=== PATIENT | female | born 1935 | race Caucasian/White ===

== ENCOUNTER 2018-08-16 14:05 | Inpatient (IN) | payer OTHER, MEDICARE ==
[~2018-08-16] VITALS: Ht 152.4 cm; Wt 75.6 kg
[2018-08-16] MEDS ORDERED: HYDR-3812 PO (15:32)
[2018-08-16] MEDS ORDERED: RIVA10TA PO (15:32)
[2018-08-16] MEDS ORDERED: ACET325T38 PO (15:32)
[2018-08-16] MEDS ORDERED: ALLO100T PO (15:32)
[2018-08-16] MEDS ORDERED: AMLO5TAB9 PO (15:32)
[2018-08-16] MEDS ORDERED: ASPI-983 PO (15:32)
[2018-08-16] MEDS ORDERED: METO50TA15 PO (15:32)
[2018-08-16] MEDS ORDERED: POLY17PO6 PO (15:32)
[2018-08-16] MEDS ORDERED: INSU100V SQ (15:32)
[2018-08-16] MEDS ORDERED: FERR325T24 PO (15:32)
[2018-08-16] MEDS ORDERED: SIME80TA16 PO (15:32)
[2018-08-16] MEDS ORDERED: GLIM4TAB PO (15:32)
[2018-08-16] MEDS ORDERED: INSU100I29 SC (15:32)
[2018-08-16] MEDS ORDERED: METF-397 PO (15:32)
[2018-08-16] MEDS ORDERED: LISI-552 PO (15:39)
--- NOTE | 2018-08-16 15:50 | NUR ---
UPDATED THE MED REC TO THE LIST OF MEDICATIONS ORDERED UPON DISCHARGE FROM [facility]. NOTE THE FOLLOWING CHANGES THAT WERE MADE: START TAKING: TYLENOL 325MG 2 TABS Q6H PRN FERROUS SULFATE 325MG BID HYDROCODONE 5-325 1 Q4H PRN HUMALOG ACHS CORRECTION SLIDING SCALE METOPROLOL TARTRATE 50MG Q8H (HOWEVER LAST GIVEN STATES 25MG THIS MORNING) MIRALAX 17GM DAILY PRN CONSTIPATION XARELTO 10MG EVERY 24 HOURS SIMETHICONE 80MG Q6H PRN GAS CHANGE HOW YOU TAKE: AMLODIPINE 5MG DAILY (WAS TAKING 2.5MG DAILY) GLIMEPIRIDE 2MG 2 TABS DAILY (WAS TAKING 4MG BID) LEVEMIR 18 UNITS HS (WAS FILLED AT [facility] 22 UNITS DAILY WITH EVENING MEAL) STOP TAKING: ATENOLOL 25MG BID JANUVIA 100MG (HAD FILLED 50MG DAILY ACCORDING TO EXT MED HX) ALSO NOTE THEY ORDERED TO CONTINUE LISINOPRIL 20MG BID HOWEVER ACCORDING TO THE EXT MED HX SHE LAST FILLED LISINOPRIL HCTZ 20-12.5MG BID. Addendum: 08/17/18 at 1318 by CATRINA SIN semiconductor manufacturing technician UPDATED MED REC BACK TO THE HOME MEDICATION LIST PRIOR TO DISCHARGE FROM [facility] USING THE EXT MED HX AND THE CHANGES MADE AT DISCHARGE FROM [facility].
[2018-08-16] MEDS ORDERED: meTOprolol TARTRATE 50 MG (LOPRESSOR) TAB PO SCH (16:15)
[2018-08-16] MEDS ORDERED: NON-FORMULARY MEDICATION 1 EA EA (Polyethylene Glycol 3350 (Miralax) 17 GM) PO PRN (16:15)
[2018-08-16] MEDS ORDERED: NON-FORMULARY MEDICATION 1 EA EA (Hydrocodone/Acetaminophen (Hydrocodone-Acetamin 5-325 mg PO PRN (16:15)
[2018-08-16] MEDS ORDERED: SIMETHICONE 80 MG PO PRN (16:15)
[2018-08-16] MEDS ORDERED: ACETAMINOPHEN 325 MG TABLET PO PRN (16:15)
--- NOTE | 2018-08-16 20:40 | NUR ---
Eduard Campo admitted to room 230-1, with an admitting diagnosis of ORIF of the Left hip, on 08/16/18 from [facility] in [place] via [facility], accompanied by [facility] van cdl driver. EDUARD CAMPO introduced to surroundings, call light, bed controls, phone, TV, temperature control, lights, meal times, smoking policy, visitor policy, side rail policy, bathrooms and showers. Patient Rights given to patient in the handbook. EDUARD CAMPO verbalizes understanding that [facility] is not responsible for the loss or damage to any personal effects or valuables that are kept in the patients posession during their hospitalization. The following Patient Care Plans were discussed with the patient: Discharge Planning, impaired mobility, and pain management. EDUARD CAMPO verbalizes understanding of Interdisciplinary Patient Education. Patient was informed about the Rapid Response Team and its purpose. Patient received Patient Rights Booklet, which includes Privacy Act Statement and Data Collection Information Summary.
[2018-08-16 20:49] VITALS: BP 166/72
[2018-08-16 20:51] VITALS: BP 166/72
[2018-08-16] MEDS ORDERED: NON-FORMULARY MEDICATION 1 EA EA (Metformin HCl 1,000 MG) PO SCH (21:00)
[2018-08-16] MEDS ORDERED: FERROUS SULF 325 MG (IRON) TAB PO SCH (21:00)
[2018-08-16] MEDS ORDERED: NON-FORMULARY MEDICATION 1 EA EA (Insulin Detemir (Levemir Flextouch) 18 UNITS) SC SCH (21:00)
[2018-08-16] MEDS ORDERED: NON-FORMULARY MEDICATION 1 EA EA (Allopurinol 100 MG) PO SCH (21:00)
[2018-08-16] MEDS ORDERED: HYDROcodone/APAP 5 MG/325 MG (LORTAB) TAB ONE (21:02)
[2018-08-16] MEDS ORDERED: meTOprolol TARTRATE 50 MG (LOPRESSOR) TAB ONE (21:02)
[2018-08-16] MEDS ORDERED: metFORMIN 500 MG (GLUCOPHAGE) TAB ONE (21:02)
[2018-08-16] MEDS ORDERED: ALLOPURINOL 100 MG (ZYLOPRIM) TAB ONE (21:04)
[2018-08-16] MEDS: inSUlin ASPART (NovoLOG) 1 UNIT/0.01 ML (CHARGE PER UNIT) SC SCH (21:09)
[2018-08-16] MEDS: lisINopril 20 MG (PRINIVIL) TABLET PO SCH (21:10)
[2018-08-16] MEDS ORDERED: POLYETHYLENE GLYCOL 17 GM (MIRALAX) PACK PO PRN (21:45)
[2018-08-16] MEDS: meTOprolol TARTRATE 50 MG (LOPRESSOR) TAB PO SCH (22:03)
[2018-08-16] MEDS: HYDROcodone/APAP 5 MG/325 MG (LORTAB) TAB PO PRN (22:34)
[2018-08-17 04:57] LABS: BASOPHILS % (AUTO) 0 % (0-10); EOSINOPHILS # (AUTO) 0.1 10^3/uL (0.0-0.3); EOSINOPHILS % (AUTO) 2 % (0-10); HEMATOCRIT 23 % (35-52); HEMOGLOBIN 7.3 G/DL (11.5-16.0); LYMPHOCYTES # (AUTO) 1.2 X 10^3 (1.0-4.0); LYMPHOCYTES % (AUTO) 24 % (12-44); MEAN CORPUSCULAR HEMOGLOBIN 29 PG (25-34); MEAN CORPUSCULAR HGB CONC 31 G/DL (32-36); MEAN CORPUSCULAR VOLUME 92 FL (80-99); MEAN PLATELET VOLUME 8.9 FL (7.4-10.4); MONOCYTES # (AUTO) 0.6 X 10^3 (0.0-1.0); MONOCYTES % (AUTO) 12 % (0-12); NEUTROPHILS # (AUTO) 2.9 X 10^3 (1.8-7.8); NEUTROPHILS % (AUTO) 61 % (42-75); PLATELET COUNT 233 10^3/uL (130-400); RED CELL DISTRIBUTION WIDTH 18.6 % (10.0-14.5); WHITE BLOOD COUNT 4.8 10^3/uL (4.3-11.0)
[2018-08-17 05:21] LABS: ALANINE AMINOTRANSFERASE 28 U/L (0-55); ALBUMIN 2.6 GM/DL (3.2-4.5); ALKALINE PHOSPHATASE 77 U/L (40-136); BILIRUBIN,TOTAL 0.6 MG/DL (0.1-1.0); BUN/CREATININE RATIO 21; CALCIUM 8.6 MG/DL (8.5-10.1); CARBON DIOXIDE 23 MMOL/L (21-32); CHLORIDE 112 MMOL/L (98-107); CREATININE SERUM 0.82 MG/DL (0.60-1.30); GFR ESTIMATED > 60; GLUCOSE 76 MG/DL (70-105); POTASSIUM 4.1 MMOL/L (3.6-5.0); SODIUM 143 MMOL/L (135-145); TOTAL PROTEIN 4.9 GM/DL (6.4-8.2)
[2018-08-17 05:49] VITALS: BP 149/69
[2018-08-17] MEDS: inSUlin ASPART (NovoLOG) 1 UNIT/0.01 ML (CHARGE PER UNIT) SC SCH ×4 (06:22→20:27)
[2018-08-17] MEDS: HYDROcodone/APAP 5 MG/325 MG (LORTAB) TAB PO PRN ×4 (06:22→22:38)
[2018-08-17] MEDS: metFORMIN 500 MG (GLUCOPHAGE) TAB PO SCH ×2 (06:22→17:54)
[2018-08-17] MEDS: meTOprolol TARTRATE 50 MG (LOPRESSOR) TAB PO SCH ×3 (06:22→20:27)
[2018-08-17] MEDS: GLIMEPIRIDE 4 MG (AMARYL) TAB PO SCH (06:51)
--- NOTE | 2018-08-17 08:41 | PM&R H&P / Post Admit Assess ---
History of Present Illness HPI/Chief Complaint Chief Complaint: Left femur fracture HPI: This is an 83[address]WF of [address] 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 She did have blood loss, anemia, and was placed on oral iron at that time at [facility]. She had no significant decompensation at [facility], kidney function remained normal, and all home meds were restarted when she arrived at inpatient rehab. Bowel function has remained normal to loose since laxatives had been given post-operatively. She at this current time reports that her leg feels much better with pain medication and she is already participating in therapy although she only arrived last night at 9 PM after an eight hour wait for transportation. I did talk to her about her Hgb of 7.3, Venofer will be ordered and iron will be discontinued due to constipation and bloating complaints. Overall she was independent prior level of functioning and she will work towards returning back to independent living at time of discharge. Source: patient, RN/MD, old records Exam Limitations: no limitations Date Seen 08/17/18 Time Seen by a Provider: 08:45 Attending Physician Frances Santana Ronald MD Referring Physician Date of Admission Aug 16, 2018 at 20:40 Home Medications & Allergies Home Medications Reviewed patient Home Medication Reconciliation performed by pharmacy medication reconciliations senior pharmacy technician and/or nursing. Patients Allergies have been reviewed. 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) Alcohol Use: Denies Use Recreational Drug Use: No Smoking Status: Never a Smoker Physical Abuse Screen: No Sexual Abuse: No Recent Foreign Travel: No Contact w/other who traveled: No Recent Hopitalizations: No Recent Infectious Disease Expo: No Immunizations Up To Date Date of Pneumonia Vaccine: Apr 27, 2018 Seasonal Allergies Seasonal Allergies: No Past Medical History Surgeries: Orthopedic Currently Using CPAP: No Currently Using BIPAP: No Cardiac: High Cholesterol, Hypertension Sexually Transmitted Disease: No HIV/AIDS: No Female Reproductive Disorders: Denies Genitourinary: Bladder Infection Musculoskeletal: Arthritis, Gout Endocrine: Diabetes, Non-Insulin dep Are Your Blood Sugars Over 250: Yes (occasionally) HEENT: Cataract Loss of Vision: Denies Hearing Impairment: Hard of Hearing History of Blood Disorders: No Adverse Reaction to Blood Cloud: No Family History Hypertension 19 FATHER Hypertension Review of Systems Constitutional: see HPI, malaise, weakness EENTM: no symptoms reported Respiratory: no symptoms reported Cardiovascular: no symptoms reported Gastrointestinal: diarrhea Genitourinary: no symptoms reported Musculoskeletal: back pain, muscle pain, muscle stiffness, other (left hip pain ) Skin: no symptoms reported Psychiatric/Neurological: No Symptoms Reported All Other Systems Reviewed Negative Unless Noted: Yes Physical Exam Exam Vital Signs Vital Signs Date Time Temp Pulse Resp B/P (MAP) Pulse Ox O2 Delivery O2 Flow Rate FiO2 08/17/18 16:10 97.7 97 16 107/62 (77) 98 Room Air Capillary Refill : Less Than 3 Seconds General Appearance: No Apparent Distress, WD/WN, Chronically ill HEENT: PERRL/EOMI, Normal ENT Inspection, Pharynx Normal, Moist Mucous Membranes Neck: Full Range of Motion, Normal Inspection, Non Tender, Supple Respiratory: Chest Non Tender, Lungs Clear, Normal Breath Sounds, No Accessory Muscle Use, No Respiratory Distress Cardiovascular: Regular Rate, Rhythm, No Edema, No Gallop, No JVD, No Murmur Gastrointestinal: Normal Bowel Sounds, No Organomegaly, No Pulsatile Mass, Non Tender, Soft Back: Normal Inspection, No CVA Tenderness, No Vertebral Tenderness Extremity: Normal Capillary Refill, Normal Inspection, Normal Range of Motion, Non Tender, No Calf Tenderness, No Pedal Edema Neurologic/Psychiatric: Alert, Oriented x3, No Motor/Sensory Deficits (limited ROM left leg due to hip pain), Normal Mood/Affect, Abnormal Gait Skin: Normal Color, Warm/Dry Lymphatic: No Adenopathy Results Results/Procedures Labs Laboratory Tests 08/17/18 04:45 Patient resulted labs reviewed. Assessment/Plan Assessment and Plan Assess & Plan/Chief Complaint Assessment: Left hip fracture s/p uncomplicated repair DM HTN Acute blood loss anemia Severe iron deficiency placed on iron infusions Gout Loose stools Low albumin Plan: DM management with insulin Pain control Monitor bowels Fall prevention education Home meds Iron infusions (1) Femur fracture, left (2) Diabetes mellitus (3) Hypertension (4) Gout (5) Acute blood loss anemia (6) Iron deficiency (7) Loose stools (8) Serum albumin decreased Post Admission Physician Asses Date seen by provider: Aug 17, 2018 Time seen by provider: 08:45 The preadmission screen agrees with the post admission assessment that the patient is a good candidate for inpatient rehabilitation. The patient will have a comprehensive program of inpatient rehabilitation with a goal of maximizing level of functional independence prior to discharge home. The patient will have PT/OT ninety minutes per day, each discipline, five days a week for gait, strengthening, conditioning, balance, ADLs, any patient/ family/caregiver training as necessary. Speech therapy to do cognitive assessment and treat as indicated. Rehabilitation nursing to assist with bowel, bladder, skin, wound care, medication administration, pain management. Marine Fireman to assist with discharge planning, community reentry. SCD's for DVT prophylaxis. She appears to be well motivated to participate in three hours of therapy a day. She should be able to tolerate three hours of therapy a day from a medical standpoint. She should benefit from the three hours of therapy a day. She has a reasonable discharge plan, reasonable discharge rehabilitation goals and a supportive family. She has various comorbidities that need to be closely monitored with medications and treatments adjusted on a daily basis as needed. These include: see list Barriers to discharge for this patient who had been independent prior to this are for her to be modified independent to supervision for ADLs and mobility skills prior to discharge home so as to lessen the burden of the caregivers. Risks for this patient include: 1. Fall 2. Fracture 3. DVT 4. Pulmonary embolism 5. Wound infection 6. Skin breakdown 7. Contractures 8. Poorly controlled pain 9. Urinary retention 10. UTI 11. Respiratory infection 12. Aspiration Estimated Length of Stay: 10 days Prognosis: Rehab prognosis appears good for goal of discharge home modified independent to supervision for ADLs and mobility skills. FRANCES SANTANA DO Aug 17, 2018 08:41
[2018-08-17] MEDS ORDERED: NON-FORMULARY MEDICATION 1 EA EA (Glimepiride 4 MG) PO SCH (09:00)
[2018-08-17] MEDS ORDERED: NON-FORMULARY MEDICATION 1 EA EA (Amlodipine Besylate 5 MG) PO SCH (09:00)
[2018-08-17] MEDS ORDERED: RIVAROXABAN 10 MG PO SCH (09:00)
--- NOTE | 2018-08-17 09:07 | Physical Therapy Evaluation ---
PT Evaluation-General Medical Diagnosis Admission Date Aug 16, 2018 at 20:40 Medical Diagnosis: ORIF left hip Onset Date: Aug 09, 2018 Therapy Diagnosis Therapy Diagnosis: impaired mobility, strength, endurance Height/Weight Height (Feet): 5 Height (Inches): 0.00 Weight (Pounds): 161 Weight (Ounces): 0.0 Precautions Precautions/Isolations: Fall Prevention, Standard Precautions Weight Bear Status Right Lower Extremity: Right Full Weight Bearing Left Lower Extremity: Left Touch Toe Bearing Referral Physician: Frances Santana DO Reason for Referral: Evaluation/Treatment Medical History Pertinent Medical History: Arthritis Reviewed History: Yes Social History Home: Single Level Current Living Status: Alone Entry Into Home: Stairs Without Railing PT Steps Into Home: 2 Prior/Core FIM Prior Level of Function Therapy Code Descriptions/Definitions Functional [place] Measure: 0=Not Assessed/NA 4=Minimal Assistance 1=Total Assistance 5=Supervision or Setup 2=Maximal Assistance 6=Modified [place] 3=Moderate Assistance 7=Complete [place] Therapy Quality Codes: 6 Independent with activity with or without an assistive device 5 Patient requires set up or clean up by helper. Patient completes activity by themselves 4 Supervision or touching assist (CGA). [place] provide cues , steadying assist 3 The helper provides less than half the effort to complete the activity 2 The helper provides more than half the effort to complete the activity 1 Dependent. The helper does all the effort to complete an activity 7 Patient refused to complete or attempt activity 9 The patient did not perform the activity before the current illness or injury 88 Not attempted due to Medical conditions or safety concerns Functional Abilities and Goals: Independent: Patient completed the activities by him/herself, with or without an assistive device, with no assistance from a helper. Needed Some Help: Patient needed partial assistance from another person to complete activities. Dependent: A helper completed the activities for the patient. Unknown: Not Applicable: Bed Mobility: 7 Transfers (B,C,W/C) (FIM): 7 Gait: 7 Stairs: 7 Indoor Mobility (Ambulation): Independent Stairs: Independent PT Evaluation-Current Subjective Patient in recliner pre tx, agrees to PT, has 7/10 pain in left hip. Pt/Family Goals to be independent at home Objective Patient Orientation: Person, Place, Situation ROM/Strength ROM Lower Extremities RLE WNL, LLE not tested Strenght Lower Extremities RLE 4+/5 gross, LLE not tested Neuromuscular (Tone, Coordination, Reflexes) NT Sensory Hearing: Functional Sensation Right Lower Extremit: Intact Sensation Left Lower Extremity: Intact Transfers Therapy Code Descriptions/Definitions Functional [place] Measure: 0=Not Assessed/NA 4=Minimal Assistance 1=Total Assistance 5=Supervision or Setup 2=Maximal Assistance 6=Modified [place] 3=Moderate Assistance 7=Complete [place] Therapy Quality Codes: 6 Independent with activity with or without an assistive device 5 Patient requires set up or clean up by helper. Patient completes activity by themselves 4 Supervision or touching assist (CGA). [place] provide cues , steadying assist 3 The helper provides less than half the effort to complete the activity 2 The helper provides more than half the effort to complete the activity 1 Dependent. The helper does all the effort to complete an activity 7 Patient refused to complete or attempt activity 9 The patient did not perform the activity before the current illness or injury 88 Not attempted due to Medical conditions or safety concerns Transfers (B, C, W/C) (FIM): 3 Scootin Rollin Roll Left to Right (QC): 3 Supine to/from Sit: 3 Sit to/from Stand: 4 bed t/f WC(FIM only if WC use): 4 Sit to Lying (QC): 2 Lying to Sitting/Side of Bed(Q: 2 Sit to Stand (QC): 4 Chair/[place] Xfer(QC): 4 Car Transfer (QC): 3 Patient performs bed mobility with min assist, supine <-> sit with mod assist, sit <-> stand with CGA, transfers with CGA, car transfer with min assist. Patient needs cues for hand placement and positioning. Gait Does the Patient Walk?: Yes Mode of Locomotion: Walk Anticipated Mode of Locomotion: Walk Gait (FIM): 1 Walk 10 feet (QC): 4 Distance: 10' Gait Level of Assist: 4 Gait Persons Needed: 1 Gait Assistive Device: FWW Comments/Gait Description Patient can ambulate 10' with a rolling walker with CGA. Ambulation is antalgic , slow, little to no foot clearance on either side, she can barely support her weight to keep it off of left leg when stepping with the right. Stairs If not tested on admit;explain Patient is not able to bear enough weight through her arms to step up with her good leg onto the step. Balance Sitting Static: Normal Sitting Dynamic: Normal Standing Static: Fair Standing Dynamic: Fair Treatment LAQ left side for 5 min, AP x20 each side. Patient was also toileted for a BM. Assessment/Needs Patient has impaired mobility, strength, endurance post left hip ORIF. She has difficulty maintaining her TTWB on the left leg due to arm weakness. Rehab Potential: Fair PT Short Term Goals Short Term Goals Time Frame: Aug 24, 2018 Transfers (B,C,W/C) (FIM): 4 Gait (FIM): 1 Gait Distance Comment: 25' Gait Level of Assist: 4 Gait Assistive Device: FWW PT Usp Goals Usp Goals PT Human Services Instructor Goals Time Frame: September 07, 2018 Transfers (B,C,W/C) (FIM): 5 Sit to Lying (QC): 4 Lying-Sitting on Side/Bed(QC): 4 Sit to Stand (QC): 4 Rollin Roll Left to Right (QC): 4 Chair/Hgo-ab-Bakmk Xfer(QC): 4 Car Transfer (QC): 4 Gait (FIM): 2 Distance: 50' Walk 10 feet (QC): 4 Walk 10ft-Uneven Surface(QC): 4 Walk 50ft with 2 Turns (QC): 4 Gait Level of Assist: 5 Gait Assistive Device: FWW Stairs (FIM): 2 # of Steps: 4 1 Step (curb) (QC): 4 4 Steps (QC): 4 Stairs Level Of Assist: 4 PT Plan Problem List Problem List: Activity Tolerance, Functional Strength, Safety, Balance, Gait, Transfer, Bed Mobility, ROM Treatment/Plan Treatment Plan: Continue Plan of Care Treatment Plan: Bed Mobility, Education, Functional Activity [place], Functional Strength, Group Therapy, Gait, Safety, Therapeutic Exercise, Transfers Treatment Duration: September 07, 2018 Frequency: At least 5 of 7 days/Wk (IRF) Estimated Hrs Per Day: 1.5 hours per day Patient and/or Family Agrees t: Yes Safety Risks/Education Patient Education: Gait Training, Transfer Techniques, Correct Positioning, Safety Issues Teaching Recipient: Patient Teaching Methods: Demonstration, Discussion Response to Teaching: Reinforcement Needed Discharge Recommendations Plan Patient will perform bed mobility and transfer training, balance and endurance training, functional strengthening, stair training, gait training, and education , to improve functional mobility and independence at home. Therapy D/C Recommendations: Home w/ Family Support Time/GCodes Time In: 0800 Time Out: 0900 Total Billed Treatment Time: 60 Total Billed Treatment 1 visit EVM 30' GT 10' FA 20' BILLY GALLOWAY PT Aug 17, 2018 09:07
[2018-08-17] MEDS: RIVAROXABAN 10 MG TABLET (XARELTO) PO SCH (09:56)
[2018-08-17] MEDS: amLODIPine 5 MG (NORVASC) TAB PO SCH (09:57)
[2018-08-17] MEDS: lisINopril 20 MG (PRINIVIL) TABLET PO SCH ×2 (09:57→20:27)
[2018-08-17] MEDS: ASPIRIN E.C. 81 MG (ECOTRIN) TAB PO SCH (09:57)
[2018-08-17] MEDS: ALLOPURINOL 100 MG (ZYLOPRIM) TAB PO SCH ×2 (09:57→20:27)
--- NOTE | 2018-08-17 10:45 | NUR ---
Pastoral care visit.
--- NOTE | 2018-08-17 11:14 | Occupational Therapy Eval ---
OT Evaluation-General/PLF Medical Diagnosis Admission Date Aug 16, 2018 at 20:40 Medical Diagnosis: ORIF left hip Onset Date: Aug 09, 2018 Therapy Diagnosis Therapy Diagnosis: decreased self care skills Height/Weight Height (Feet): 5 Height (Inches): 0.00 Weight (Pounds): 161 Weight (Ounces): 0.0 Precautions Precautions/Isolations: Fall Prevention, Standard Precautions Weight Bear Status Weight Bearing Restriction: Touch Toe Bearing Location Restriction: L LE Referral Physician: Frances Santana DO Medical History Pertinent Medical History: Arthritis Current History Pt had a fall resulting in left hip fracture. Now s/p ORIF. Pt is TTWB left LE. Social History Home: Single Level Current Living Status: Alone (pt states granddaughter can stay with her at d/c) Entry Into Home: Stairs Without Railing Steps Into Home: 2 ADL-Prior Level of Function Therapy Code Descriptions/Definitions Functional [place] Measure: 0=Not Assessed/NA 4=Minimal Assistance 1=Total Assistance 5=Supervision or Setup 2=Maximal Assistance 6=Modified [place] 3=Moderate Assistance 7=Complete [place] Therapy Quality Codes: 6 Independent with activity with or without an assistive device 5 Patient requires set up or clean up by helper. Patient completes activity by themselves 4 Supervision or touching assist (CGA). [place] provide cues , steadying assist 3 The helper provides less than half the effort to complete the activity 2 The helper provides more than half the effort to complete the activity 1 Dependent. The helper does all the effort to complete an activity 7 Patient refused to complete or attempt activity 9 The patient did not perform the activity before the current illness or injury 88 Not attempted due to Medical conditions or safety concerns Functional Abilities and Goals: Independent: Patient completed the activities by him/herself, with or without an assistive device, with no assistance from a helper. Needed Some Help: Patient needed partial assistance from another person to complete activities. Dependent: A helper completed the activities for the patient. Unknown: Not Applicable: ADL PLOF Comments Pt reports being independent with self care and mobility. Did not use any assistive devices. Pt works as a teacher. Self Care: Independent Functional Cognition: Independent DME/Equipment: Grab Bars, Shower Occupation: Teacher Drive Self: Yes OT Current Status Subjective Pt sitting in chair, agrees to therapy. Pt reports 8/10 pain in left hip and left shoulder. Mental Status/Objective Patient Orientation: Person, Place, Situation Current Glasses/Contacts: Yes Hearing Aids: No Dentures/Partials: No Hand Dominance: Left Upper Extremity ROM Mildly decreased left shoulder ROM secondary to pain. Pt states she hit her shoulder when she fell Upper Extremity Coordination Intact Upper Extremity Sensation Intact per pt report Upper Extremity Strength grossly 4/5 ADL-Treatment ADL-Current Pt declined shower this morning, but agrees to sponge bath. Pt doffed shirt with SBA, assist to doff pants. Upper body bathing completed with set up. Pt able to wash bilateral upper legs, but required assist for other lower body areas. Pt donned pullover shirt with SBA. Assist required to start Depends and pants over feet. Pt sit to stand with minimal assistance. Required mod assist for pant hike. Total assist to don socks without equipment. Pt instructed in use of adaptive equipment for LE dressing. Pt able to don socks with min assist using sock aid. Grooming tasks competed seated in chair. Pt brushed teeth and combed hair with set up. Sit to stand with min assist. Transfer to [facility] with min assist using FWW, cues for WB status. Pt able to pull pants down, but requires assist pulling pants up. Transfer back to chair with minimal assistance. Pt fatigues with activity and requires rest breaks during session secondary to pain. Increased time for ADLs. Pt sitting in chair with needs met after session. Eating (FIM): 7 (by report) Eating (QC): 6 Grooming (FIM): 5 Oral Hygiene (QC): 5 Bathing (FIM): 3 Shower/Bathe Self (QC): 3 Upper Body Dressing (FIM): 5 Upper Body Dressing (QC): 4 Lower Body Dressing (FIM): 2 Lower Body Dressing (QC): 2 On/Off Footwear (QC): 1 Toileting (FIM): 3 Toileting Hygiene (QC): 3 Toilet/Commode Transfer (FIM): 4 Toilet Transfer (QC): 3 Education OT Patient Education: Modified ADL techniques, Rehab process Teaching Recipient: Patient Teaching Methods: Demonstration, Discussion Response to Teaching: Verbalize Understanding OT Short Term Goals Short Term Goals Time Frame: Aug 24, 2018 Bathing(FIM): 4 Lower Body Dressing(FIM): 4 Toileting(FIM): 4 Shower Transfer(FIM): 4 Additional Short Term Goals: 1-Demonstrate ADL Tasks, 2-Verbalize Understanding , 3-ImproveStrength/[place] 1=Demonstrate adherence to instructed precautions during ADL tasks. 2=Patient will verbalize/demonstrate understanding of assistive devices/ modifications for ADL. 3=Patient will improve strength/tolerance for activity to enable patient to perform ADL's. OT Blood Bank Business Manager Goals Blood Bank Business Manager Goals Time Frame: September 07, 2018 Eating (FIM): 7 Eating (QC): 6 Groomin Oral Hygiene (QC): 6 Bathing(FIM): 5 Shower/Bathe Self (QC): 5 Upper Body Dressing(FIM): 6 Upper Body Dressing (QC): 6 Lower Body Dressing(FIM): 6 Lower Body Dressing (QC): 6 On/Off Footwear (QC): 6 Toileting(FIM): 6 Toileting Hygiene (QC): 6 Toilet/Commode Transfer(FIM): 6 Toilet/Commode Transfer (QC): 6 Shower Transfer(FIM): 5 Additional Goals: 1-Demonstrate ADL Tasks, 2-Verbalize Understanding, 3- ImproveStrength/[place] 1=Demonstrate adherence to instructed precautions during ADL tasks. 2=Patient will verbalize/demonstrate understanding of assistive devices/ modifications for ADL. 3=Patient will improve strength/tolerance for activity to enable patient to perform ADL's. OT Education/Plan Problem List/Assessment Assessment: Decreased UE Strength, Dependent Transfers, Impaired I ADL's, Impaired Self-Care Skills Pt admitted to ARU following acute hospitalization for left hip fracture. Pt demonstrates decreased ADL functioning, mobility, strength, and activity tolerance. Pt to benefit from skilled OT intervention for ADL training, transfers, strengthening, adaptive equipment training as needed, and home safety education to increase independence and allow safe discharge. Discharge Recommendations Plan/Recommendations: Continue POC Treatment Plan/Plan of Care Treatment,Training & Education: Yes Patient would benefit from OT for education, treatment and training to promote independence in ADL's, mobility, safety and/or upper extremity function for ADL' s. Plan of Care: ADL Retraining, Functional Mobility, Group Exercise/Act as Ind, UE Funct Exercise/Act Treatment Duration: September 07, 2018 Frequency: At least 5 of 7 days/Wk (IRF) Estimated Hrs Per Day: 1.5 hours per day Rehab Potential: Fair Time/GCodes Start Time: 09:00 Stop Time: 10:30 Total Time Billed (hr/min): 90 Billed Treatment Time 1 visit, EVM(20minutes), ADLx5(70minutes) BENJY MALONEY OT Aug 17, 2018 11:14
[2018-08-17] MEDS: IRON SUCROSE 200 MG/10 ML (VENOFER) VIAL IV SCH (11:16)
[2018-08-17] MEDS ORDERED: GLIM4TAB PO (13:15)
[2018-08-17] MEDS ORDERED: ATEN25TA PO (13:15)
[2018-08-17] MEDS ORDERED: LISI1TAB8 PO (13:15)
[2018-08-17] MEDS ORDERED: AMLO2.5T4 PO (13:15)
[2018-08-17] MEDS ORDERED: SITA50TA PO (13:15)
[2018-08-17] MEDS ORDERED: INSU100I29 SQ (13:15)
--- NOTE | 2018-08-17 13:58 | Physical Therapy Daily Note ---
PT Daily Note-Current Subjective Patient in recliner pre tx, agrees to PT, has 8/10 pain in left hip. Nurse notified of pain but she says it is not quite time for patient to have pain meds yet. Appearance Patient in recliner post tx with nurse call, phone, tray, all needs met. Mental Status Patient Orientation: Person, Place, Situation Transfers Therapy Code Descriptions/Definitions Functional [place] Measure: 0=Not Assessed/NA 4=Minimal Assistance 1=Total Assistance 5=Supervision or Setup 2=Maximal Assistance 6=Modified [place] 3=Moderate Assistance 7=Complete [place] Therapy Quality Codes: 6 Independent with activity with or without an assistive device 5 Patient requires set up or clean up by helper. Patient completes activity by themselves 4 Supervision or touching assist (CGA). Dixon provide cues , steadying assist 3 The helper provides less than half the effort to complete the activity 2 The helper provides more than half the effort to complete the activity 1 Dependent. The helper does all the effort to complete an activity 7 Patient refused to complete or attempt activity 9 The patient did not perform the activity before the current illness or injury 88 Not attempted due to Medical conditions or safety concerns Transfers (B, C, W/C) (FIM): 4 Sit to/from Stand: 4 Bed to/from Chair: 4 Weight Bearing Right Lower Extremity: Right Full Weight Bearing Left Lower Extremity: Left Touch Toe Bearing Gait Training Gait (FIM): 1 Distance: 10'x2 Gait Level of Assist: 4 Gait Persons Needed: 1 Gait Assistive Device: FWW slow, antalgic, complies with TTWB Exercises Standing: Hamstring curls, 3 way Ex=Flex, Abd, Ext (not ext), Marching exercises done only with left leg Treatments ambulation, LE exercises Assessment Current Status: Fair Progress improving ambulation PT Short Term Goals Short Term Goals Time Frame: Aug 24, 2018 Gait (FIM): 1 Gait Distance Comment: 25' Gait Level of Assist: 4 Gait Assistive Device: FWW PT Skilled Nursing Goals Offset Label Rewinder Goals PT Skilled Nursing Goals Time Frame: September 07, 2018 Transfers (B,C,W/C) (FIM): 5 Sit to Lying (QC): 4 Lying-Sitting on Side/Bed(QC): 4 Sit to Stand (QC): 4 Rollin Roll Left to Right (QC): 4 Chair/Vqb-yb-Osrtm Xfer(QC): 4 Car Transfer (QC): 4 Gait (FIM): 2 Distance: 50' Walk 10 feet (QC): 4 Walk 10ft-Uneven Surface(QC): 4 Walk 50ft with 2 Turns (QC): 4 Gait Level of Assist: 5 Gait Assistive Device: FWW Stairs (FIM): 2 # of Steps: 4 1 Step (curb) (QC): 4 4 Steps (QC): 4 Stairs Level Of Assist: 4 PT Plan Problem List Problem List: Activity Tolerance, Functional Strength, Safety, Balance, Gait, Transfer, Bed Mobility, ROM Treatment/Plan Treatment Plan: Continue Plan of Care Treatment Plan: Bed Mobility, Education, Functional Activity Aurora, Functional Strength, Group Therapy, Gait, Safety, Therapeutic Exercise, Transfers Treatment Duration: September 07, 2018 Frequency: At least 5 of 7 days/Wk (IRF) Estimated Hrs Per Day: 1.5 hours per day Patient and/or Family Agrees t: Yes Safety Risks/Education Patient Education: Gait Training, Transfer Techniques, Correct Positioning, Safety Issues Teaching Recipient: Patient Teaching Methods: Demonstration, Discussion Response to Teaching: Reinforcement Needed Time/GCodes Time In: 1330 Time Out: 1400 Total Billed Treatment Time: 30 Total Billed Treatment 1 visit GT 15' EX 15' BILLY GALLOWAY PT Aug 17, 2018 13:58
--- NOTE | 2018-08-17 15:30 | ST Cognitive Linguistic Eval ---
Speech Evaluation-General Medical Diagnosis ORIF left hip Onset Date: Aug 09, 2018 Therapy Diagnosis Therapy Diagnosis: Cognitive-Communication Precautions Precautions/Isolations: Fall Prevention, Standard Precautions Referral Referring Physician: Dr. Santana Medical History Pertinent Medical History: Arthritis Reviewed History: Yes Social History Current Living Status: Alone (pt states granddaughter can stay with her at d/c) Speech PLF-Current Status Prior Level of Function The patient lived at home where she was independent with all of her daily needs. Subjective The patient was pleasant and cooperative with the evaluation process. Language Eval: Auditory Comprehends Simple Yes/No Ques: Functional Indent/Objects Multiple Shearer: Functional Ident/Pics in Multiple Shearer: Functional Follows 1-Step Commands: Functional Follows Complex Directions: Functional Follows General Conversations: Functional Language Eval: Verbal Language Completes Spontaneous Greeting: Functional Produces Auto, Serial Info: Functional Imitates Simple Words/Phrases: Functional Word Finding: Functional Requests Basic Needs: Functional States Basic Personal Info: Functional Expresses Complex Ideas: Functional Objective Cognitive Domain Attention: WNL Memory: WNL Problem Solving: Functional Executive Functions: WNL Visuospatial Skills: WNL Composite Severity Rating: WNL Clock Drawing Severity Rating: WNL Objective Formal/Standardized Tests [place] Cognitive Assessment Results Visuospatial/Executive: 5/5, Namin/3, Memory: Immediate 5/5, Delayed 5/5, Attention: 6/6, Language: 3/3, Abstraction: 2/2, Orientation: 6/6 Total 30/30 Oral Motor/Speech Production Within Functional Limits Impression The patient is a pleasant 83 year old female who was admitted to the ARU s/p fractured hip. She was noted to be a good personal historian related to herself. 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 The patient was given the MOCA with all areas of assessment completed within normal limits. The patient does not warrant skilled ST at this time. Communication/Social Cognition Comprehension: 7 Expression: 7 Social Interaction: 7 Problem Solvin Memory: 7 Speech Patient Assess Expression of Ideas/Wants: Expression (4) Understanding Verbal Content: Understands (4) Brief Interview-Mental Status: Yes Repetition of Three Words: Three (3) Temporal Orientation: Year: Correct (3) Temporal Orientation: Month: Accurate within 5 days(2) Temporal Orientation: Day: Correct (1) Recall : Wear to say "Sock": Yes, no cue required (2) Recall : Color: Yes, no cue required (2) Recall : Bed: Yes, no cue required (2) Memory/Recall Ability: Current season, Staff names and faces, That he or she is in a hsp/hsp unit Speech-Plan Patient/Family Goals Patient/Family Goals: The patient plans on returning home post rehab. 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 Treatment Plan Speech Therapy Treatment Plan: Discontinue ST The patient does not require skilled ST at this time. Treatment Duration: Aug 17, 2018 Frequency: 1 time per week Estimated Hrs Per Day: .25 hour per day Rehab Potential: Fair Barriers to Learning: None identified Pt/Family Agrees to Plan: Yes Safety Risks/Education Teaching Recipient: Patient Teaching Methods: Discussion Response to Teaching: Verbalize Understanding Education Topics Provided: Safety within her room Time Speech Therapy Time In: 14:30 Speech Therapy Time Out: 14:45 Total Billed Time: 15 Billed Treatment Time 1, SPSNDCOMP KRYSTINA Butler Aug 17, 2018 15:30
[2018-08-17 16:10] VITALS: BP 107/62
[2018-08-17] MEDS: SIMETHICONE 80 MG (MYLICON) CHEW PO PRN (22:40)
--- NOTE | 2018-08-18 04:05 | NUR ---
MEAT BUTCHER met with patient to review team conference summary. As patient just recently admitted and is currently requiring min assist for all activities due to toe-touch weightbearing status as well as IV and preferred due to decreased iron and hemoglobin, team has recommended reevaluation at next team conference on 08/25. Patient is agreeable to reevaluation. MEAT BUTCHER will reach out to Workmen's [employer]. to inquire about needed clinical updates. MEAT BUTCHER will continue to follow.
[2018-08-18 05:09] VITALS: BP 131/67
[2018-08-18] MEDS: inSUlin ASPART (NovoLOG) 1 UNIT/0.01 ML (CHARGE PER UNIT) SC SCH ×4 (06:15→21:11)
[2018-08-18] MEDS: metFORMIN 500 MG (GLUCOPHAGE) TAB PO SCH ×2 (06:15→16:18)
[2018-08-18] MEDS: HYDROcodone/APAP 5 MG/325 MG (LORTAB) TAB PO PRN ×3 (06:15→20:14)
[2018-08-18] MEDS: GLIMEPIRIDE 4 MG (AMARYL) TAB PO SCH (06:15)
[2018-08-18] MEDS: meTOprolol TARTRATE 50 MG (LOPRESSOR) TAB PO SCH ×3 (06:15→20:14)
[2018-08-18] MEDS: RIVAROXABAN 10 MG TABLET (XARELTO) PO SCH (08:10)
[2018-08-18] MEDS: lisINopril 20 MG (PRINIVIL) TABLET PO SCH ×2 (08:10→20:14)
[2018-08-18] MEDS: ALLOPURINOL 100 MG (ZYLOPRIM) TAB PO SCH ×2 (08:10→20:14)
[2018-08-18] MEDS: amLODIPine 5 MG (NORVASC) TAB PO SCH (08:10)
[2018-08-18] MEDS: ASPIRIN E.C. 81 MG (ECOTRIN) TAB PO SCH (08:10)
[2018-08-18 08:11] VITALS: BP 114/59
--- NOTE | 2018-08-18 08:26 | Individualized Plan of Care ---
Individualized Plan of Care Rehab Nursing IPOC Order Admission Date Aug 16, 2018 at 20:40 Current Orders Orders Follow-Up Appointment (08/16/18 14:20) Weight Bearing Status (08/16/18:) Vital Signs: Per Unit Policy ( ,16,00 (08/16/18 14:) Community Service Officer-Inpt Rehab Con (08/16/18 14:) Rehab Nursing Orders-Ipoc (08/16/18 14:) Physical Therapy Rehab Orders (08/16/18:) Occupational Therapy Rehab Ord (08/16/18:) Speech Therapy Rehab Orders (08/16/18:) Intake & Output (08/16/18:) Precautions (Aru) (08/16/18:) Weekly Weight (Lbs) WEEK (08/16/18:) Rehab-Intensity Of Therapy (08/16/18:) Initiate Admission Nursing Pro .admission (08/16/18) Code/Resuscitation (08/16/18:) Cbc With Automated Diff (08/17/18 06:00) Comprehensive Metabolic Panel (08/17/18 06:00) Iron Test (Fe) (08/17/18 06:00) Admission Order(Inpt,Obs,Sdc) (08/16/18:) Acetaminophen Tablet/Caplet (Tylenol T (08/16/18 16:15) Aspirin Enteric Coated Tablet (Ecotrin T (08/17/18 09:00) Ferrous Sulfate Tablet (Feosol Tablet) (08/16/18 21:00) (Nf) Allopurinol (08/16/18 21:00) (Nf) Amlodipine Besylate (08/17/18 09:00) (Nf) Glimepiride (08/17/18 09:00) (Nf) Hydrocodone/Acetaminophen (Hydrocod (08/16/18 16:15) (Nf) Insulin Detemir (Levemir Flextouch) (08/16/18 21:00) (Nf) Metformin Hcl (08/16/18 21:00) (Nf) Polyethylene Glycol 3350 (Miralax) (08/16/18 16:15) (Nf) Rivaroxaban (Xarelto) (08/17/18 09:00) (Nf) Simethicone (08/16/18 16:15) Lisinopril Tablet (Zestril Tablet) (08/16/18 21:00) Metoprolol Tartrate (Ir) Tab (Lopressor (08/16/18 16:15) Cho 75g/M 0snack (21-2400 Alejo) (08/16/18 Dinner) Accucheck Achs ACHS (08/16/18 16:11) Insulin Aspart (Novolog) (Novolog (Charg (08/16/18 21:00) Hydrocodone/Apap 5/325 Tablet (Lortab 5 (08/16/18 21:02) Metformin Tablet (Glucophage Tablet) (08/16/18 21:02) Metoprolol Tartrate (Ir) Tab (Lopressor (08/16/18 21:02) Insulin Determir (Per Unit) (Levemir (Pe (08/16/18 21:03) Allopurinol Tablet (Zyloprim Tablet) (08/16/18 21:04) Allopurinol Tablet (Zyloprim Tablet) (08/17/18 09:00) Amlodipine Tablet (Norvasc Tablet) (08/17/18 09:00) Glimepiride Tablet (Amaryl Tablet) (08/17/18 06:30) Insulin Determir (Per Unit) (Levemir (Pe (08/17/18 21:00) Metformin Tablet (Glucophage Tablet) (08/17/18 07:00) Polyethylene Glycol Powder Pkt (Miralax (08/16/18 21:45) Rivaroxaban Tablet (Xarelto Tablet) (08/17/18 09:00) Simethicone Tablet (Mylicon Chewable Tab (08/16/18 21:45) Hydrocodone/Apap 5/325 Tablet (Lortab 5 (08/16/18 21:45) Metoprolol Tartrate (Ir) Tab (Lopressor (08/16/18 22:00) Ambulate 08,12,20 (08/16/18 22:31) Sequential Compression Device 08,20 (08/16/18 22:31) Dvt/Vte Risk - Notifiy Physici 08 (08/16/18 22:31) Iron Sucrose Injection (Venofer Injectio (08/17/18 09:00) Patient Visit (08/17/18 ) Pt Eval Moderate Complexity (08/17/18 ) Gait Training, Ea 15 Min (08/17/18 ) Functional Activities, Ea 15 (08/17/18 ) Exercise Therap, Ea 15 Min (08/17/18 ) Patient Visit (08/17/18 ) Speech Sound Lang Comp (08/17/18 ) Patient Visit (08/18/18 ) Functional Activities, Ea 15 (08/18/18 ) Exercise Therap, Ea 15 Min (08/18/18 ) Patient Visit (08/18/18 ) Dextrose 10% Iv Solution (D10w 1000 Ml I (08/18/18 16:30) Patient Visit (08/19/18 ) Gait Training, Ea 15 Min (08/19/18 ) Exercise Therap, Ea 15 Min (08/19/18 ) Functional Activities, Ea 15 (08/19/18 ) Rehab Nursing Orders: Ongoing Assess. of Function Status, Disease Management & Educaiton, DVT Prophylaxis, Fall Prevention, Fluid/Electrolyte/Nutrition Mgmt, Medication Management & Education, Management of Skin Intergrity, Patient/ Family Support, Weight Bearing Precaution, Wound Management Intensity of Therapy to be met Patient to be seen: Min.3h per day/5 of 7d PT IPOC Problem List: Activity Tolerance, Functional Strength, Safety, Balance, Gait, Transfer, Bed Mobility, ROM Treatment Plan: Continue Plan of Care Bed Mobility, Education, Functional Activity Aurora, Functional Strength, Group Therapy, Gait, Safety, Therapeutic Exercise, Transfers Treatment Duration: September 07, 2018 Frequency: At least 5 of 7 days/Wk (IRF) Estimated Hrs Per Day: 1.5 hours per day OT IPOC Problems: Decreased UE Strength, Dependent Transfers, Impaired I ADL's, Impaired Self-Care Skills OT Treatment, Training and Edu: Yes OT Problems Pt admitted to ARU following acute hospitalization for left hip fracture. Pt demonstrates decreased ADL functioning, mobility, strength, and activity tolerance. Pt to benefit from skilled OT intervention for ADL training, transfers, strengthening, adaptive equipment training as needed, and home safety education to increase independence and allow safe discharge. Plan of Care: ADL Retraining, Functional Mobility, Group Exercise/Act as Ind, UE Funct Exercise/Act Treatment Duration: September 07, 2018 Frequency: At least 5 of 7 days/Wk (IRF) Estimated Hrs Per Day: 1.[address] IPOC Speech Therapy Treatment Plan: Discontinue ST Treatment Duration: Aug 17, 2018 Frequency: 1 time per week Estimated Hrs Per Day: .25 hour per day Community Service Officer/Case Mgmt Community Service Officer/Case Managemen: Discharge Planning Dietitian/Digital Watch Assembler Dietitian/Digital Watch Assembler to monitor nutritional status and make changes and/or recommendations as needed and work with speech pathology on dietary upgrades as the occur. Physician IPOC Medical Issues being managed closely and that require the 24 hour availability of a physician: Severe hypoglycemia and anemia post operatively will require D10 IVF along with IV Venofer and monitored closely Medical Issues: Bowel/Bladder Function, DVT Prophylaxis, Falls Precautions, Fluid/Electrolyte/Nutrition Balance, Weight Bearing Precautions Brief Synthesis of Preadmission Screen, Post-Admission Evaluation, and Therapy Evaluations: PT will focus on toe touch weight bearing techniques and fall prevention OT will train patient techniques in resuming independence of ADL's Medical Prognosis: Good Anticipated Length of Stay: 10 days TOBY DELONG DO Aug 18, 2018 08:26
--- NOTE | 2018-08-18 08:26 | PM&R Progress Note ---
Subjective HPI/CC On Admission Date Seen by Provider: Aug 18, 2018 Time Seen by Provider: 08:00 Chief Complaint: Left femur fracture HPI: This is an 83[address] 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 She did have blood loss, anemia, and was placed on oral iron at that time at [facility]. She had no significant decompensation at [facility], kidney function remained normal, and all home meds were restarted when she arrived at inpatient rehab. Bowel function has remained normal to loose since laxatives had been given post-operatively. She at this current time reports that her leg feels much better with pain medication and she is already participating in therapy although she only arrived last night at 9 PM after an eight hour wait for transportation. I did talk to her about her Hgb of 7.3, Venofer will be ordered and iron will be discontinued due to constipation and bloating complaints. Overall she was independent prior level of functioning and she will work towards returning back to independent living at time of discharge. Subjective/Events-last exam DC Levemir and oral hypoglycemic agent due to too low of sugar and noted she was given her OHA this morning at 0615 IV Venofer Iron infusion is tolerated well Hgb remains at 7.3 Bowels are moving well, not as loose Physical therapy reports toe touch limits therapy but doing well with that OT reports minimal assist with the DLS Overall participating in therapy and doing much better and pain is better controlled and sleeping better Continued low sugars this afternoon required infusion of D10 IVF at 60cc/hr to maintain sugar level while OHA metabolizes Review of Systems Musculoskeletal: leg pain Neurological: Weakness Objective Exam Vital Signs Vital Signs Date Time Temp Pulse Resp B/P (MAP) Pulse Ox O2 Delivery O2 Flow Rate FiO2 08/18/18 14:16 108 123/66 (85) 08/18/18 09:35 Room Air 08/18/18 05:09 98.6 18 96 Capillary Refill : Less Than 3 Seconds General Appearance: No Apparent Distress, WD/WN, Chronically ill HEENT: PERRL/EOMI, Normal ENT Inspection, Pharynx Normal, Moist Mucous Membranes Neck: Full Range of Motion, Normal Inspection, Non Tender, Supple Respiratory: Chest Non Tender, Lungs Clear, Normal Breath Sounds, No Accessory Muscle Use, No Respiratory Distress Cardiovascular: Regular Rate, Rhythm, No Edema, No Gallop, No JVD, No Murmur Gastrointestinal: Normal Bowel Sounds, No Organomegaly, No Pulsatile Mass, Non Tender, Soft Back: Normal Inspection, No CVA Tenderness, No Vertebral Tenderness Extremity: Normal Capillary Refill, Normal Inspection, Normal Range of Motion, Non Tender, No Calf Tenderness, No Pedal Edema Neurologic/Psychiatric: Alert, Oriented x3, No Motor/Sensory Deficits (limited ROM left leg due to hip pain), Normal Mood/Affect, Abnormal Gait Skin: Normal Color, Warm/Dry Lymphatic: No Adenopathy Results/Procedures Lab Patient resulted labs reviewed. FIM Transfers Therapy Code Descriptions/Definitions Functional [place] Measure: 0=Not Assessed/NA 4=Minimal Assistance 1=Total Assistance 5=Supervision or Setup 2=Maximal Assistance 6=Modified [place] 3=Moderate Assistance 7=Complete [place] Therapy Quality Codes: 6 Independent with activity with or without an assistive device 5 Patient requires set up or clean up by helper. Patient completes activity by themselves 4 Supervision or touching assist (CGA). [place] provide cues , steadying assist 3 The helper provides less than half the effort to complete the activity 2 The helper provides more than half the effort to complete the activity 1 Dependent. The helper does all the effort to complete an activity 7 Patient refused to complete or attempt activity 9 The patient did not perform the activity before the current illness or injury 88 Not attempted due to Medical conditions or safety concerns Mental Status/Objective Comprehension: 7 Expression: 7 Social Interaction: 7 Problem Solvin Memory: 7 ADL-Treatment Feedin (by report) Eating (QC): 6 Groomin Oral Hygiene (QC): 5 Bathin Shower/Bathe Self (QC): 3 Upper Extremity Dressin Upper Body Dressing (QC): 4 Lower Extremity Dressin Lower Body Dressing (QC): 2 On/Off Footwear (QC): 1 Toiletin Toileting Hygiene (QC): 3 Toilet/Commode Transfer: 4 Toilet Transfer (QC): 3 Assessment/Plan Assessment and Plan Assess & Plan/Chief Complaint Assessment: Left hip fracture s/p uncomplicated repair DM HTN Acute blood loss anemia Severe iron deficiency placed on iron infusions Gout Loose stools Low albumin Hypoglycemia Plan: DM management with insulin but holding and adding IVF D10 at 60cc/hr due to hypoglycemia refractory due to OHA with anemia Pain control Monitor bowels Fall prevention education Home meds Iron infusions (1) Femur fracture, left (2) Diabetes mellitus (3) Hypertension (4) Gout (5) Acute blood loss anemia (6) Iron deficiency (7) Loose stools (8) Serum albumin decreased (9) Hypoglycemia TOBY DELONG DO Aug 18, 2018 08:26
--- NOTE | 2018-08-18 08:41 | NUR ---
CELLAR HAND met with patient to complete initial assessment. Patient was alert and oriented and agreeable to assessment. Patient admitted to a [facility] from [facility] with left femur fracture following a fall at work. She presents with toe touch weightbearing status on left lower extremity. Prior to follow patient resided alone in a one level home in [place], [place]. The home has 2 steps at the entrance without a handrail. 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 Patient required no DME or assistance. PCP identified as Dr. Yoel Todd. Primary contact identified as daughter's Sushma at [place] at [phone] and daughter Dana of [place] at [phone]. She also has a son that resides in [facility] at [phone] and granddaughter, Lissy is able to stay with patient at discharge if needed to assist. Insurance verified as Deysi Delgado, [employer] managed by [employer] and secondary insurance of Medicare, with prescription coverage and preferred pharmacy listed as [facility]. intervention manager listed as Dana at [phone] Initial authorization for admission was obtained through [employer] case claim number [id number]. CELLAR HAND facilitated contact information of daily rate of which [employer] will reimburse for hospital services. CELLAR HAND is under the understanding that [employer] case will cover entire hospitalization in addition to follow-up services and DME if needed.
--- NOTE | 2018-08-18 09:46 | NUR ---
Dr. Santana here to see patient. Orders to Hold Levemir D/T trending hypoglycemia in AM.
--- NOTE | 2018-08-18 11:33 | NUR ---
1107- FSBS 59. Amboy juice and hali crackers with peanut butter given. 1125- FSBS 65. Still eating hali crackers with peanut butter and looking through the menu to order lunch. 1133- Dr. Santana notified of above. No new orders rec'd.
--- NOTE | 2018-08-18 11:42 | Occupational Ther Daily Note ---
OT Current Status-Daily Note Subjective Pt sitting in chair, agrees to therapy. Pt reports 6/10 pain in left hip at rest , increases with movement. Mental Status/Objective Therapy Code Descriptions/Definitions Functional [place] Measure: 0=Not Assessed/NA 4=Minimal Assistance 1=Total Assistance 5=Supervision or Setup 2=Maximal Assistance 6=Modified [place] 3=Moderate Assistance 7=Complete [place] ADL-Treatment Pt declined shower, but would like sponge bath. Pt doffed shirt with SBA. Doffed Depends and pants with minimal assistance for balance. Uses AE to doff lower body clothing. Upper body bathing completed with SBA. Pt able to wash bilateral upper legs and jon area. Requires assist to wash buttocks and lower legs/feet. Don pullover shirt with set up. Pt used netezza architect to start Depends and pants over feet. Stood with minimal assistance for balance during pant hike. Able to maintain WB status with cues. Pt donned socks with SBA using sock aide. Grooming tasks completed while seated in chair. Pt combed hair and brushed teeth with set up. Therapy Code Descriptions/Definitions Functional [place] Measure: 0=Not Assessed/NA 4=Minimal Assistance 1=Total Assistance 5=Supervision or Setup 2=Maximal Assistance 6=Modified [place] 3=Moderate Assistance 7=Complete [place] Therapy Quality Codes: 6 Independent with activity with or without an assistive device 5 Patient requires set up or clean up by helper. Patient completes activity by themselves 4 Supervision or touching assist (CGA). [place] provide cues , steadying assist 3 The helper provides less than half the effort to complete the activity 2 The helper provides more than half the effort to complete the activity 1 Dependent. The helper does all the effort to complete an activity 7 Patient refused to complete or attempt activity 9 The patient did not perform the activity before the current illness or injury 88 Not attempted due to Medical conditions or safety concerns Grooming (FIM): 5 Oral Hygiene (QC): 5 Bathing (FIM): 3 Shower/Bathe Self (QC): 3 Upper Body (FIM): 5 Upper Body Dressing (QC): 5 Lower Body Dressing (FIM): 4 Lower Body Dressing (QC): 3 On/Off Footwear (QC): 4 Other Treatment Pt transferred to w/c with min assist using FWW. To therapy gym via w/c. Pt completed UE exercises to increase strength needed for ADLs and transfers. Pt performed right shoulder flexion and abduction and bilateral elbow flexion x15 reps with 1# weights. Rest breaks between exercises. Pt did not complete left shoulder exercises secondary to c/o pain. Pt returned to room, transferred to chair with FWW. Pt sitting in chair with needs met after session. OT Short Term Goals Short Term Goals Time Frame: Aug 24, 2018 Bathing(FIM): 4 Lower Body Dressing(FIM): 4 Toileting(FIM): 4 Shower Transfer(FIM): 4 Additional Short Term Goals: 1-Demonstrate ADL Tasks, 2-Verbalize Understanding , 3-ImproveStrength/[place] 1=Demonstrate adherence to instructed precautions during ADL tasks. 2=Patient will verbalize/demonstrate understanding of assistive devices/ modifications for ADL. 3=Patient will improve strength/tolerance for activity to enable patient to perform ADL's. OT Radio Board Operator Goals Radio Board Operator Goals Time Frame: September 07, 2018 Eating (FIM): 7 Eating (QC): 6 Groomin Oral Hygiene (QC): 6 Bathing(FIM): 5 Shower/Bathe Self (QC): 5 Upper Body Dressing(FIM): 6 Upper Body Dressing (QC): 6 Lower Body Dressing(FIM): 6 Lower Body Dressing (QC): 6 On/Off Footwear (QC): 6 Toileting(FIM): 6 Toileting Hygiene (QC): 6 Toilet/Commode Transfer(FIM): 6 Toilet/Commode Transfer (QC): 6 Shower Transfer(FIM): 5 Additional Goals: 1-Demonstrate ADL Tasks, 2-Verbalize Understanding, 3- ImproveStrength/[place] 1=Demonstrate adherence to instructed precautions during ADL tasks. 2=Patient will verbalize/demonstrate understanding of assistive devices/ modifications for ADL. 3=Patient will improve strength/tolerance for activity to enable patient to perform ADL's. OT Education/Plan Discharge Recommendations Plan/Recommendations: Continue POC Treatment Plan/Plan of Care Treatment,Training & Education: Yes Patient would benefit from OT for education, treatment and training to promote independence in ADL's, mobility, safety and/or upper extremity function for ADL' s. Plan of Care: ADL Retraining, Functional Mobility, Group Exercise/Act as Ind, UE Funct Exercise/Act Treatment Duration: September 07, 2018 Frequency: At least 5 of 7 days/Wk (IRF) Estimated Hrs Per Day: 1.5 hours per day Rehab Potential: Fair Time/GCodes Start Time: 09:00 Stop Time: 10:00 Total Time Billed (hr/min): 60 Billed Treatment Time 1 visit, ADLx3(45minutes), EX(15minutes) BENJY MALONEY OT Aug 18, 2018 11:42
--- NOTE | 2018-08-18 12:07 | Physical Therapy Daily Note ---
PT Daily Note-Current Subjective Pt reclined in recliner in room upon arrival. Pt agrees to PT but reports low Blood Sugar. Nurse takes and reports 59. Pt is given OAna Maria & hali crackers with PB to bring Blood Sugar to normal level. Pain Numeric Pain Scale: 10-Worst Possible Pain Location: Left Location Body Site: Hip Pain Description: Stabbing, Sharp Comment: Pt reports 7/10 at rest & 10/10 with activity. Mental Status Patient Orientation: Person, Place, Situation Transfers Therapy Code Descriptions/Definitions Functional [place] Measure: 0=Not Assessed/NA 4=Minimal Assistance 1=Total Assistance 5=Supervision or Setup 2=Maximal Assistance 6=Modified [place] 3=Moderate Assistance 7=Complete [place] Therapy Quality Codes: 6 Independent with activity with or without an assistive device 5 Patient requires set up or clean up by helper. Patient completes activity by themselves 4 Supervision or touching assist (CGA). [place] provide cues , steadying assist 3 The helper provides less than half the effort to complete the activity 2 The helper provides more than half the effort to complete the activity 1 Dependent. The helper does all the effort to complete an activity 7 Patient refused to complete or attempt activity 9 The patient did not perform the activity before the current illness or injury 88 Not attempted due to Medical conditions or safety concerns Sit to/from Stand: 5 Sit to Stand (QC): 5 Weight Bearing Right Lower Extremity: Right Full Weight Bearing Left Lower Extremity: Left Touch Toe Bearing Exercises Seated Therapy Exercises: Ankle pumps, Sit to stand (5 reps), Long arc quads, Hip flexion, Kicking activity, Hip abd/add, Glut set Seated Reps: 10 Treatments CHEF INSTRUCTOR gives pt ed over managing Diabetes and symptoms, ARU expectations & pain management. Pt completes Seated Ex as Blood Sugar allows. Pt also completes Sit to stands. Pt is assisted with ordering lunch at end of tx. Pt has all needs met. Assessment Current Status: Fair Progress Pt tolerates tx well and will continue to benefit from strength, activity tolerance & mobility during PT tx. PT Short Term Goals Short Term Goals Time Frame: Aug 24, 2018 Gait (FIM): 1 Gait Distance Comment: 25' Gait Level of Assist: 4 Gait Assistive Device: FWW PT Chcf Goals Community Development Coordinator Goals PT Community Development Coordinator Goals Time Frame: September 07, 2018 Transfers (B,C,W/C) (FIM): 5 Sit to Lying (QC): 4 Lying-Sitting on Side/Bed(QC): 4 Sit to Stand (QC): 4 Rollin Roll Left to Right (QC): 4 Chair/Gte-np-Bwsoi Xfer(QC): 4 Car Transfer (QC): 4 Gait (FIM): 2 Distance: 50' Walk 10 feet (QC): 4 Walk 10ft-Uneven Surface(QC): 4 Walk 50ft with 2 Turns (QC): 4 Gait Level of Assist: 5 Gait Assistive Device: FWW Stairs (FIM): 2 # of Steps: 4 1 Step (curb) (QC): 4 4 Steps (QC): 4 Stairs Level Of Assist: 4 PT Plan Treatment/Plan Treatment Plan: Continue Plan of Care Treatment Plan: Bed Mobility, Education, Functional Activity [place], Functional Strength, Group Therapy, Gait, Safety, Therapeutic Exercise, Transfers Treatment Duration: September 07, 2018 Frequency: At least 5 of 7 days/Wk (IRF) Estimated Hrs Per Day: 1.5 hours per day Patient and/or Family Agrees t: Yes Safety Risks/Education Patient Education: Reviewed Precautions, Disease Process, Safety Issues Teaching Recipient: Patient Teaching Methods: Discussion Response to Teaching: Verbalize Understanding Time/GCodes Time In: 1100 Time Out: 1200 Total Billed Treatment Time: 60 Total Billed Treatment 1, FA x2 & EX x2 G Codes Necessary: TIERRA Jacobo CHEF INSTRUCTOR Aug 18, 2018 12:07
--- NOTE | 2018-08-18 12:19 | NUR ---
FSBS 74.
[2018-08-18 14:16] VITALS: BP 123/66
--- NOTE | 2018-08-18 14:28 | Therapy Group Daily Note ---
Therapy Daily Group Note Patient Education Topic Exercises Exercises LE Seated Exercise, UE Exercise Session Ratio (pt:therapist): 4:1 Goal of Session: UE/LE Strengthing Goal Met for this Session: Yes Pt Benefit of Group: Contributions to Others, Increased Functional Strength, Recognition of Peers, Socialization Other/Notes Pt ambulated with FWW to OT/PT group. Group consisted of introductions (name, place living, name of kindergarten), socialization and UE/LE seated exercises with education. Pt introduced self appropriately and actively listened to peers. Pt verbalized understanding of education and completed exercises using light resistance theraband and 1# wrist/ankle wts, verbal/physical cues needed for correct technique. Pt able to verbalize exercises that were completed as a daily activity. After therapy, pt sitting in recliner with call light/phone in reach. All needs met in room. Start Time: 13:00 Stop Time: 14:05 Total Billed Treatment Time: 65 Total Billed Treatment 1-GRP COSMO FOUNTAIN Aug 18, 2018 14:28
--- NOTE | 2018-08-18 16:20 | NUR ---
FSBS is 53. Dr. Santana notified. Orders to start D10 IV fluids at 60mls/hr. Addendum: 08/18/18 at 1620 by CULLEN PRESCOTT RN Also... hold Metformin.
[2018-08-18] MEDS ORDERED: DEXTROSE 10% IV SOLUTION 1,000 ML IV SCH (16:30)
--- NOTE | 2018-08-18 16:39 | NUR ---
New dressing applied to left hip incision D/T old dressing being saturated. Incisions X3 with monica intact. Well approximated. No redness noted. AllKare applied to surrounding tissue. Covered with [place] dressing. Patient tolerated well.
[2018-08-18 17:08] VITALS: BP 122/66
--- NOTE | 2018-08-18 17:38 | NUR ---
FSBS 142
[2018-08-19] MEDS: HYDROcodone/APAP 5 MG/325 MG (LORTAB) TAB PO PRN ×4 (04:05→22:08)
[2018-08-19 05:28] VITALS: BP 72/66
[2018-08-19] MEDS: inSUlin ASPART (NovoLOG) 1 UNIT/0.01 ML (CHARGE PER UNIT) SC SCH ×4 (06:10→21:02)
[2018-08-19] MEDS: meTOprolol TARTRATE 50 MG (LOPRESSOR) TAB PO SCH ×3 (06:11→21:02)
--- NOTE | 2018-08-19 08:34 | PM&R Progress Note ---
Subjective HPI/CC On Admission Date Seen by Provider: Aug 19, 2018 Time Seen by Provider: 08:15 Chief Complaint: Left femur fracture HPI: This is an 83[address]WF of [address] 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 She did have blood loss, anemia, and was placed on oral iron at that time at [facility]. She had no significant decompensation at [facility], kidney function remained normal, and all home meds were restarted when she arrived at inpatient rehab. Bowel function has remained normal to loose since laxatives had been given post-operatively. She at this current time reports that her leg feels much better with pain medication and she is already participating in therapy although she only arrived last night at 9 PM after an eight hour wait for transportation. I did talk to her about her Hgb of 7.3, Venofer will be ordered and iron will be discontinued due to constipation and bloating complaints. Overall she was independent prior level of functioning and she will work towards returning back to independent living at time of discharge. Subjective/Events-last exam D10 IV fluid at 60 CCs per hour due to severe hypoglycemia from long acting oral hypoglycemic will be discontinued since its 170 this morning. Sliding scale will be maintained only and will continue to hold oral hypoglycemics and Metformin. IV Venofer tolerated well. Feels much better since her blood sugars are much improved. Checked and reviewed therapy notes. Conferred with RN. Having no significant issues. Review of Systems General: Fatigue Musculoskeletal: leg pain Objective Exam Vital Signs Vital Signs Date Time Temp Pulse Resp B/P (MAP) Pulse Ox O2 Delivery O2 Flow Rate FiO2 08/19/18 15:39 98.3 68 16 117/66 (83) 98 Room Air Capillary Refill : Less Than 3 Seconds General Appearance: No Apparent Distress, WD/WN, Chronically ill HEENT: PERRL/EOMI, Normal ENT Inspection, Pharynx Normal, Moist Mucous Membranes Neck: Full Range of Motion, Normal Inspection, Non Tender, Supple Respiratory: Chest Non Tender, Lungs Clear, Normal Breath Sounds, No Accessory Muscle Use, No Respiratory Distress Cardiovascular: Regular Rate, Rhythm, No Edema, No Gallop, No JVD, No Murmur Gastrointestinal: Normal Bowel Sounds, No Organomegaly, No Pulsatile Mass, Non Tender, Soft Back: Normal Inspection, No CVA Tenderness, No Vertebral Tenderness Extremity: Normal Capillary Refill, Normal Inspection, Normal Range of Motion, Non Tender, No Calf Tenderness, No Pedal Edema Neurologic/Psychiatric: Alert, Oriented x3, No Motor/Sensory Deficits (limited ROM left leg due to hip pain), Normal Mood/Affect, Abnormal Gait Skin: Normal Color, Warm/Dry Lymphatic: No Adenopathy Results/Procedures Lab Patient resulted labs reviewed. FIM Transfers Therapy Code Descriptions/Definitions Functional [place] Measure: 0=Not Assessed/NA 4=Minimal Assistance 1=Total Assistance 5=Supervision or Setup 2=Maximal Assistance 6=Modified [place] 3=Moderate Assistance 7=Complete [place] Therapy Quality Codes: 6 Independent with activity with or without an assistive device 5 Patient requires set up or clean up by helper. Patient completes activity by themselves 4 Supervision or touching assist (CGA). [place] provide cues , steadying assist 3 The helper provides less than half the effort to complete the activity 2 The helper provides more than half the effort to complete the activity 1 Dependent. The helper does all the effort to complete an activity 7 Patient refused to complete or attempt activity 9 The patient did not perform the activity before the current illness or injury 88 Not attempted due to Medical conditions or safety concerns Gait Training Does the Patient Walk?: Yes Distance (FIM): 1=039-63 ft Gait Assistive Device: FWW Wheelchair Training Does the Pt Use a Wheelchair?: No Mental Status/Objective Comprehension: 7 Expression: 7 Social Interaction: 7 Problem Solvin Memory: 7 ADL-Treatment Feedin (by report) Eating (QC): 6 Groomin Oral Hygiene (QC): 5 Bathin Shower/Bathe Self (QC): 3 Upper Extremity Dressin Upper Body Dressing (QC): 5 Lower Extremity Dressin Lower Body Dressing (QC): 3 On/Off Footwear (QC): 4 Toiletin Toileting Hygiene (QC): 3 Toilet/Commode Transfer: 4 Toilet Transfer (QC): 3 Assessment/Plan Assessment and Plan Assess & Plan/Chief Complaint Assessment: Left hip fracture s/p uncomplicated repair DM HTN Acute blood loss anemia Severe iron deficiency placed on iron infusions Gout Loose stools Low albumin Hypoglycemia refractorey due to OHA long-acting requiring D10 drip now DC Plan: DM management with insulin but holding and adding IVF D10 at 60cc/hr due to hypoglycemia refractory due to OHA with anemia Pain control Monitor bowels Fall prevention education Home meds Iron infusions Restart OHA low dose tomorrow (1) Femur fracture, left (2) Diabetes mellitus (3) Hypertension (4) Gout (5) Acute blood loss anemia (6) Iron deficiency (7) Loose stools (8) Serum albumin decreased (9) Hypoglycemia TOBY DELONG DO Aug 19, 2018 08:34
--- NOTE | 2018-08-19 09:41 | Physical Therapy Daily Note ---
PT Daily Note-Current Subjective Pt reclined in recliner upon arrival. Pt agrees to PT. Pt reports feeling better today. Pain Numeric Pain Scale: 9 Location: Left Location Body Site: Hip Pain Description: Stabbing, Sharp Mental Status Patient Orientation: Person, Place, Time, Situation Transfers Therapy Code Descriptions/Definitions Functional [place] Measure: 0=Not Assessed/NA 4=Minimal Assistance 1=Total Assistance 5=Supervision or Setup 2=Maximal Assistance 6=Modified [place] 3=Moderate Assistance 7=Complete [place] Therapy Quality Codes: 6 Independent with activity with or without an assistive device 5 Patient requires set up or clean up by helper. Patient completes activity by themselves 4 Supervision or touching assist (CGA). [place] provide cues , steadying assist 3 The helper provides less than half the effort to complete the activity 2 The helper provides more than half the effort to complete the activity 1 Dependent. The helper does all the effort to complete an activity 7 Patient refused to complete or attempt activity 9 The patient did not perform the activity before the current illness or injury 88 Not attempted due to Medical conditions or safety concerns Supine to/from Sit: 3 Sit to/from Stand: 4 Sit to Lying (QC): 3 Sit to Stand (QC): 4 Chair/Tle-tj-Nvayp Xfer(QC): 4 Bed to/from Chair: 4 Weight Bearing Right Lower Extremity: Right Full Weight Bearing Left Lower Extremity: Left Touch Toe Bearing Gait Training Does the Patient Walk?: Yes Distance (FIM): 1=up to 49 ft Distance: 10' Walk 10 feet (QC): 4 Gait Level of Assist: 4 Gait Persons Needed: 1 Gait Assistive Device: FWW Pt receives VC for WBS. Pt hops and has antalgic gait. Wheelchair Training Does the Pt Use a Wheelchair?: Yes Wheelchair Distance: 3=150 ft Distance: 150' Wheelchair Level of Assist: 5 Wheel 50 ft with 2 turns (QC): 5 Wheel 150 ft (QC): 5 Type of Wheelchair: Manual Exercises Supine Ex: Ankle pumps, Glut sets, Short Arc Quads, Hip abd/add Supine Reps: 10 Standing: Hip Abduction, Hamstring curls, 3 way Ex=Flex, Abd, Ext Standing Reps: 10 (Left brian only) Treatments Pt. completed exercises in chair in room before ambulating 10'. Pt. then wheeled themselves to therapy room and completed standing exercises at parallel bars that were safe with her hip precautions and WBS. Pt. then completed supine exercises before therapist wheeled back to room. pt. transferred back to chair from and was left with call light and all needs met. Assessment Current Status: Good Progress Pt self limits at times due to discomfort in hip with movement. Pt protects with each movement. PT Short Term Goals Short Term Goals Time Frame: Aug 24, 2018 Gait (FIM): 1 Gait Distance Comment: 25' Gait Level of Assist: 4 Gait Assistive Device: FWW PT Service Support Representative Goals Service Support Representative Goals PT Custodial Goals Time Frame: September 07, 2018 Transfers (B,C,W/C) (FIM): 5 Sit to Lying (QC): 4 Lying-Sitting on Side/Bed(QC): 4 Sit to Stand (QC): 4 Rollin Roll Left to Right (QC): 4 Chair/Xgg-lr-Chwex Xfer(QC): 4 Car Transfer (QC): 4 Gait (FIM): 2 Distance: 50' Walk 10 feet (QC): 4 Walk 10ft-Uneven Surface(QC): 4 Walk 50ft with 2 Turns (QC): 4 Gait Level of Assist: 5 Gait Assistive Device: FWW Stairs (FIM): 2 # of Steps: 4 1 Step (curb) (QC): 4 4 Steps (QC): 4 Stairs Level Of Assist: 4 PT Plan Treatment/Plan Treatment Plan: Continue Plan of Care Treatment Plan: Bed Mobility, Education, Functional Activity [place], Functional Strength, Group Therapy, Gait, Safety, Therapeutic Exercise, Transfers Treatment Duration: September 07, 2018 Frequency: At least 5 of 7 days/Wk (IRF) Estimated Hrs Per Day: 1.5 hours per day Patient and/or Family Agrees t: Yes Safety Risks/Education Patient Education: Gait Training, Transfer Techniques, Reviewed Precautions, Correct Positioning, W/C Management, Disease Process, Safety Issues Teaching Recipient: Patient Teaching Methods: Demonstration, Discussion Response to Teaching: Verbalize Understanding, Return Demonstration Time/GCodes Time In: 900 Time Out: 1000 Total Billed Treatment Time: 60 Total Billed Treatment 1, GT, EX x 2, FA G Codes Necessary: TIERRA Jacobo FISHERIES BIOLOGIST Aug 19, 2018 09:41
[2018-08-19 10:38] VITALS: BP 132/67
[2018-08-19] MEDS: lisINopril 20 MG (PRINIVIL) TABLET PO SCH ×2 (10:38→20:44)
[2018-08-19] MEDS: ASPIRIN E.C. 81 MG (ECOTRIN) TAB PO SCH (10:38)
[2018-08-19] MEDS: IRON SUCROSE 200 MG/10 ML (VENOFER) VIAL IV SCH (10:38)
[2018-08-19] MEDS: ALLOPURINOL 100 MG (ZYLOPRIM) TAB PO SCH ×2 (10:38→20:44)
[2018-08-19] MEDS: amLODIPine 5 MG (NORVASC) TAB PO SCH (10:38)
[2018-08-19] MEDS: RIVAROXABAN 10 MG TABLET (XARELTO) PO SCH (10:38)
--- NOTE | 2018-08-19 10:46 | Occupational Ther Daily Note ---
OT Current Status-Daily Note Subjective Pt alert, sitting in recliner. Nrsg present in room. Agrees to therapy. Mental Status/Objective Patient Orientation: Person, Place, Time, Situation Therapy Code Descriptions/Definitions Functional [place] Measure: 0=Not Assessed/NA 4=Minimal Assistance 1=Total Assistance 5=Supervision or Setup 2=Maximal Assistance 6=Modified [place] 3=Moderate Assistance 7=Complete [place] Attachments: IV ADL-Treatment Pt encouraged to complete shower, pt agreed. Pt stated that she couldn't walk that far, so w/c was provided. After therapy, pt sitting in recliner with call light/phone in reach. All needs met in room. Therapy Code Descriptions/Definitions Functional [place] Measure: 0=Not Assessed/NA 4=Minimal Assistance 1=Total Assistance 5=Supervision or Setup 2=Maximal Assistance 6=Modified [place] 3=Moderate Assistance 7=Complete [place] Therapy Quality Codes: 6 Independent with activity with or without an assistive device 5 Patient requires set up or clean up by helper. Patient completes activity by themselves 4 Supervision or touching assist (CGA). [place] provide cues , steadying assist 3 The helper provides less than half the effort to complete the activity 2 The helper provides more than half the effort to complete the activity 1 Dependent. The helper does all the effort to complete an activity 7 Patient refused to complete or attempt activity 9 The patient did not perform the activity before the current illness or injury 88 Not attempted due to Medical conditions or safety concerns Grooming (FIM): 6 (Sitting at sink in w/c, pt able to complete by self.) Oral Hygiene (QC): 6 Bathing (FIM): 4 (CGA in standing to cleanse buttocks/jon area then sitting for all other areas using shower bench, grabbars, hand held shower and tower truck driver to bath/dry LE's.) Bathing Location: L Arm, R Arm, L Upper Leg, R Upper Leg, L Lower Leg ( including foot), R Lower Leg (including foot), Chest, Abdomen, Buttocks, Perineal Area Shower/Bathe Self (QC): 3 Upper Body (FIM): 5 (After set up, pt able to complete.) Upper Body Dressing (QC): 5 Lower Body Dressing (FIM): 5 (Using AE, pt able to complete lower body dressing. Verbal cues for sock aide then pt able to complete by self.) Lower Body Dressing (QC): 5 On/Off Footwear (QC): 5 Toileting (FIM): 4 (SBA using grabbars, sitting on toilet to cleanse. CGA to manipulate clothing in standing.) Toileting Hygiene (QC): 4 Transfers (B, C, W/C) (FIM): 4 (CGA using FWW.) Toilet/Commode Transfer (FIM): 4 (Min A using FWW and grabbars.) Toilet Transfer (QC): 3 Shower Transfer(FIM): 4 (Min A using FWW, shower bench and grabbars.) OT Short Term Goals Short Term Goals Time Frame: Aug 24, 2018 Bathing(FIM): 4 Lower Body Dressing(FIM): 4 Toileting(FIM): 4 Shower Transfer(FIM): 4 Additional Short Term Goals: 1-Demonstrate ADL Tasks, 2-Verbalize Understanding , 3-ImproveStrength/[place] 1=Demonstrate adherence to instructed precautions during ADL tasks. 2=Patient will verbalize/demonstrate understanding of assistive devices/ modifications for ADL. 3=Patient will improve strength/tolerance for activity to enable patient to perform ADL's. OT Retirement Goals Dietary Director Goals Time Frame: September 07, 2018 Eating (FIM): 7 Eating (QC): 6 Groomin Oral Hygiene (QC): 6 Bathing(FIM): 5 Shower/Bathe Self (QC): 5 Upper Body Dressing(FIM): 6 Upper Body Dressing (QC): 6 Lower Body Dressing(FIM): 6 Lower Body Dressing (QC): 6 On/Off Footwear (QC): 6 Toileting(FIM): 6 Toileting Hygiene (QC): 6 Toilet/Commode Transfer(FIM): 6 Toilet/Commode Transfer (QC): 6 Shower Transfer(FIM): 5 Additional Goals: 1-Demonstrate ADL Tasks, 2-Verbalize Understanding, 3- ImproveStrength/[place] 1=Demonstrate adherence to instructed precautions during ADL tasks. 2=Patient will verbalize/demonstrate understanding of assistive devices/ modifications for ADL. 3=Patient will improve strength/tolerance for activity to enable patient to perform ADL's. OT Education/Plan Problem List/Assessment Assessment: Decreased UE Strength, Impaired Self-Care Skills Discharge Recommendations Plan/Recommendations: Continue POC Treatment Plan/Plan of Care Patient would benefit from OT for education, treatment and training to promote independence in ADL's, mobility, safety and/or upper extremity function for ADL' s. Plan of Care: ADL Retraining, Functional Mobility, Group Exercise/Act as Ind, UE Funct Exercise/Act Treatment Duration: September 07, 2018 Frequency: At least 5 of 7 days/Wk (IRF) Estimated Hrs Per Day: 1.5 hours per day Rehab Potential: Fair Time/GCodes Start Time: 10:30 Stop Time: 12:00 Total Time Billed (hr/min): 90 Billed Treatment Time 1 visit-ADL 6 (90 min) COSMO FOUNTAIN Aug 19, 2018 10:46
--- NOTE | 2018-08-19 14:44 | Physical Therapy Daily Note ---
PT Daily Note-Current Subjective Pt sitting in recliner upon arrival. Pt agrees to PT. Pt reports feeling worse this afternoon, increased pain & feels shaky. Nursing notified. Pain Numeric Pain Scale: 10-Worst Possible Pain Location: Left Location Body Site: Hip Pain Description: Stabbing, Sharp Mental Status Patient Orientation: Person, Place, Situation Transfers Therapy Code Descriptions/Definitions Functional [place] Measure: 0=Not Assessed/NA 4=Minimal Assistance 1=Total Assistance 5=Supervision or Setup 2=Maximal Assistance 6=Modified [place] 3=Moderate Assistance 7=Complete [place] Therapy Quality Codes: 6 Independent with activity with or without an assistive device 5 Patient requires set up or clean up by helper. Patient completes activity by themselves 4 Supervision or touching assist (CGA). [place] provide cues , steadying assist 3 The helper provides less than half the effort to complete the activity 2 The helper provides more than half the effort to complete the activity 1 Dependent. The helper does all the effort to complete an activity 7 Patient refused to complete or attempt activity 9 The patient did not perform the activity before the current illness or injury 88 Not attempted due to Medical conditions or safety concerns Scootin Sit to/from Stand: 4 Sit to Stand (QC): 4 Weight Bearing Right Lower Extremity: Right Full Weight Bearing Left Lower Extremity: Left Touch Toe Bearing Gait Training Does the Patient Walk?: Yes Distance (FIM): 1=up to 49 ft Distance: 4' Walk 10 feet (QC): 4 Gait Level of Assist: 4 Gait Persons Needed: 1 Gait Assistive Device: FWW Pt reports too painful to ambulate further. Pt remains TTWB. Wheelchair Training Does the Pt Use a Wheelchair?: Yes Wheelchair Distance: 3=150 ft Distance: 150' Wheelchair Level of Assist: 5 Wheel 50 ft with 2 turns (QC): 5 Wheel 150 ft (QC): 5 Type of Wheelchair: Manual Exercises Seated Therapy Exercises: Ankle pumps, Long arc quads, Hip flexion, Kicking activity Seated Reps: 10 Treatments Pt transfers from recliner to standing then ambulates 4' before needing to sit back in W/C. Pt propels self to Therapy Gym and completes Seated Ex. Nursing takes Blood Sugar since pt feels shaky. Pt propels W/C back to room and transfers back to recliner. OVERLAY PLASTICIAN places ice pack at L hip and warm blanket for pt, all needs met. Assessment Current Status: Fair Progress Pt reports increased pain, fatigue & shakiness this afternoon. PT Short Term Goals Short Term Goals Time Frame: Aug 24, 2018 Gait (FIM): 1 Gait Distance Comment: 25' Gait Level of Assist: 4 Gait Assistive Device: FWW Wheelchair Distance: 150' PT Prison Goals Prison Goals PT Oven Loader Goals Time Frame: September 07, 2018 Transfers (B,C,W/C) (FIM): 5 Sit to Lying (QC): 4 Lying-Sitting on Side/Bed(QC): 4 Sit to Stand (QC): 4 Rollin Roll Left to Right (QC): 4 Chair/[id number] Xfer(QC): 4 Car Transfer (QC): 4 Gait (FIM): 2 Distance: 50' Walk 10 feet (QC): 4 Walk 10ft-Uneven Surface(QC): 4 Walk 50ft with 2 Turns (QC): 4 Gait Level of Assist: 5 Gait Assistive Device: FWW Stairs (FIM): 2 # of Steps: 4 1 Step (curb) (QC): 4 4 Steps (QC): 4 Stairs Level Of Assist: 4 PT Plan Problem List Problem List: Activity Tolerance, Gait Treatment/Plan Treatment Plan: Continue Plan of Care Treatment Plan: Bed Mobility, Education, Functional Activity [place], Functional Strength, Group Therapy, Gait, Safety, Therapeutic Exercise, Transfers Treatment Duration: September 07, 2018 Frequency: At least 5 of 7 days/Wk (IRF) Estimated Hrs Per Day: 1.5 hours per day Patient and/or Family Agrees t: Yes Safety Risks/Education Patient Education: Gait Training, Transfer Techniques, Correct Positioning, W/ C Management, Safety Issues Teaching Recipient: Patient Teaching Methods: Discussion Response to Teaching: Verbalize Understanding Time/GCodes Time In: 1400 Time Out: 1430 Total Billed Treatment Time: 30 Total Billed Treatment 1, [facility], EX G Codes Necessary: TIERRA Jacobo PTA Aug 19, 2018 14:44
[2018-08-19 15:39] VITALS: BP 117/66
--- NOTE | 2018-08-19 16:48 | NUR ---
JIG FILLER contacted [employer] ([email or web address]) retail representative, Pao to inquire about the need for clinical updates. Pao has requested clinical updates today with next update due on 08/23. JIG FILLER faxed updates.
[2018-08-20] MEDS: inSUlin ASPART (NovoLOG) 1 UNIT/0.01 ML (CHARGE PER UNIT) SC SCH ×4 (05:17→20:41)
[2018-08-20 05:25] VITALS: BP 131/69
[2018-08-20] MEDS: meTOprolol TARTRATE 50 MG (LOPRESSOR) TAB PO SCH ×2 (06:27→21:02)
[2018-08-20] MEDS: HYDROcodone/APAP 5 MG/325 MG (LORTAB) TAB PO PRN ×3 (06:27→21:01)
--- NOTE | 2018-08-20 08:28 | PM&R Progress Note ---
Subjective HPI/CC On Admission Date Seen by Provider: Aug 20, 2018 Time Seen by Provider: 09:00 Chief Complaint: Left femur fracture HPI: This is an 83[address] of [address] 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 She did have blood loss, anemia, and was placed on oral iron at that time at [facility]. She had no significant decompensation at [facility], kidney function remained normal, and all home meds were restarted when she arrived at inpatient rehab. Bowel function has remained normal to loose since laxatives had been given post-operatively. She at this current time reports that her leg feels much better with pain medication and she is already participating in therapy although she only arrived last night at 9 PM after an eight hour wait for transportation. I did talk to her about her Hgb of 7.3, Venofer will be ordered and iron will be discontinued due to constipation and bloating complaints. Overall she was independent prior level of functioning and she will work towards returning back to independent living at time of discharge. Subjective/Events-last exam Having some serous drainage on incisions but no erythema No major concern from the hip incision Levemir will be restarted at 5 units instead of 18 units Metformin will be restarted We will still continue to hold the oral hypoglycemic of Glimepiride of 4 mg daily but start 2mg tomorrow Colace of 100mg twice daily will be restarted since now she is having some hardened stools and she did have loose stools when she was admitted Overall needing constant monitoring of blood sugars Review of Systems General: Fatigue Musculoskeletal: leg pain Objective Exam Vital Signs Vital Signs Date Time Temp Pulse Resp B/P (MAP) Pulse Ox O2 Delivery O2 Flow Rate FiO2 08/20/18 18:38 98.3 71 18 136/65 (88) 98 Room Air Capillary Refill : Less Than 3 Seconds General Appearance: No Apparent Distress, WD/WN, Chronically ill HEENT: PERRL/EOMI, Normal ENT Inspection, Pharynx Normal, Moist Mucous Membranes Neck: Full Range of Motion, Normal Inspection, Non Tender, Supple Respiratory: Chest Non Tender, Lungs Clear, Normal Breath Sounds, No Accessory Muscle Use, No Respiratory Distress Cardiovascular: Regular Rate, Rhythm, No Edema, No Gallop, No JVD, No Murmur Gastrointestinal: Normal Bowel Sounds, No Organomegaly, No Pulsatile Mass, Non Tender, Soft Back: Normal Inspection, No CVA Tenderness, No Vertebral Tenderness Extremity: Normal Capillary Refill, Normal Inspection, Normal Range of Motion, Non Tender, No Calf Tenderness, No Pedal Edema Neurologic/Psychiatric: Alert, Oriented x3, No Motor/Sensory Deficits (limited ROM left leg due to hip pain), Normal Mood/Affect, Abnormal Gait Skin: Normal Color, Warm/Dry Lymphatic: No Adenopathy Results/Procedures Lab Patient resulted labs reviewed. FIM Transfers Therapy Code Descriptions/Definitions Functional [place] Measure: 0=Not Assessed/NA 4=Minimal Assistance 1=Total Assistance 5=Supervision or Setup 2=Maximal Assistance 6=Modified [place] 3=Moderate Assistance 7=Complete [place] Therapy Quality Codes: 6 Independent with activity with or without an assistive device 5 Patient requires set up or clean up by helper. Patient completes activity by themselves 4 Supervision or touching assist (CGA). [place] provide cues , steadying assist 3 The helper provides less than half the effort to complete the activity 2 The helper provides more than half the effort to complete the activity 1 Dependent. The helper does all the effort to complete an activity 7 Patient refused to complete or attempt activity 9 The patient did not perform the activity before the current illness or injury 88 Not attempted due to Medical conditions or safety concerns Mental Status/Objective Comprehension: 7 Expression: 7 Social Interaction: 7 Problem Solvin Memory: 7 ADL-Treatment Feedin (by report) Eating (QC): 6 Groomin (Sitting at sink in w/c, pt able to complete by self.) Oral Hygiene (QC): 6 Bathin (CGA in standing to cleanse buttocks/jon area then sitting for all other areas using shower bench, grabbars, hand held shower and spot sprayer to bath/ dry LE's.) Bathing Location: L Arm, R Arm, L Upper Leg, R Upper Leg, L Lower Leg ( including foot), R Lower Leg (including foot), Chest, Abdomen, Buttocks, Perineal Area Shower/Bathe Self (QC): 3 Upper Extremity Dressin (After set up, pt able to complete.) Upper Body Dressing (QC): 5 Lower Extremity Dressin (Using AE, pt able to complete lower body dressing. Verbal cues for sock aide then pt able to complete by self.) Lower Body Dressing (QC): 5 On/Off Footwear (QC): 5 Toiletin (SBA using grabbars, sitting on toilet to cleanse. CGA to manipulate clothing in standing.) Toileting Hygiene (QC): 4 Toilet/Commode Transfer: 4 (Min A using FWW and grabbars.) Toilet Transfer (QC): 3 Shower: 4 (Min A using FWW, shower bench and grabbars.) Assessment/Plan Assessment and Plan Assess & Plan/Chief Complaint Assessment: Left hip fracture s/p uncomplicated repair DM HTN Acute blood loss anemia Severe iron deficiency placed on iron infusions Gout Loose stools Low albumin Hypoglycemia refractory due to OHA long-acting requiring D10 drip now DC Plan: s/p DM management with insulin but holding and adding IVF D10 at 60cc/hr due to hypoglycemia refractory due to OHA with anemia Pain control Monitor bowels Fall prevention education Home meds Iron infusions Restart OHA low dose tomorrow (1) Femur fracture, left (2) Diabetes mellitus (3) Hypertension (4) Gout (5) Acute blood loss anemia (6) Iron deficiency (7) Loose stools (8) Serum albumin decreased (9) Hypoglycemia TOBY DELONG DO Aug 20, 2018 08:28
--- NOTE | 2018-08-20 08:51 | Occupational Ther Daily Note ---
OT Current Status-Daily Note Subjective Pt sitting in chair, agrees to treatment. Pt reports 7/10 pain in left hip. Mental Status/Objective Therapy Code Descriptions/Definitions Functional [place] Measure: 0=Not Assessed/NA 4=Minimal Assistance 1=Total Assistance 5=Supervision or Setup 2=Maximal Assistance 6=Modified [place] 3=Moderate Assistance 7=Complete [place] ADL-Treatment Pt declined shower, but would like a sponge bath. Pt doffed nightgown with SBA. Doffed Depends and socks with SBA using dressing stick. Upper body bathing completed with set up. Pt able to wash jon area, bilateral upper legs, and buttocks with SBA. Assist required to wash lower legs and feet. Don night gown with set up. Used director safety to start Depends over feet. Stood with supervision for balance during pant hike. Pt donned bilateral socks with SBA using sock aid. Grooming tasks completed with set up while seated. Transfer to w/c with CGA for balance using FWW. Able to maintain WB status. Therapy Code Descriptions/Definitions Functional [place] Measure: 0=Not Assessed/NA 4=Minimal Assistance 1=Total Assistance 5=Supervision or Setup 2=Maximal Assistance 6=Modified [place] 3=Moderate Assistance 7=Complete [place] Therapy Quality Codes: 6 Independent with activity with or without an assistive device 5 Patient requires set up or clean up by helper. Patient completes activity by themselves 4 Supervision or touching assist (CGA). [place] provide cues , steadying assist 3 The helper provides less than half the effort to complete the activity 2 The helper provides more than half the effort to complete the activity 1 Dependent. The helper does all the effort to complete an activity 7 Patient refused to complete or attempt activity 9 The patient did not perform the activity before the current illness or injury 88 Not attempted due to Medical conditions or safety concerns Grooming (FIM): 5 Oral Hygiene (QC): 5 Bathing (FIM): 4 Shower/Bathe Self (QC): 3 Upper Body (FIM): 5 Upper Body Dressing (QC): 5 Lower Body Dressing (FIM): 5 Lower Body Dressing (QC): 4 On/Off Footwear (QC): 4 Other Treatment To therapy gym via w/c. Arm bike [id number] to increase overall activity tolerance and strength. Pt completed activity with minimal resistance and slow pace. No rest breaks needed. Pt returned to room, transferred to chair with FWW and CGA. Pt sitting in chair with needs met after session. OT Short Term Goals Short Term Goals Time Frame: Aug 24, 2018 Bathing(FIM): 4 Lower Body Dressing(FIM): 4 Toileting(FIM): 4 Shower Transfer(FIM): 4 Additional Short Term Goals: 1-Demonstrate ADL Tasks, 2-Verbalize Understanding , 3-ImproveStrength/[place] 1=Demonstrate adherence to instructed precautions during ADL tasks. 2=Patient will verbalize/demonstrate understanding of assistive devices/ modifications for ADL. 3=Patient will improve strength/tolerance for activity to enable patient to perform ADL's. OT Fdc Goals Preboarder Goals Time Frame: September 07, 2018 Eating (FIM): 7 Eating (QC): 6 Groomin Oral Hygiene (QC): 6 Bathing(FIM): 5 Shower/Bathe Self (QC): 5 Upper Body Dressing(FIM): 6 Upper Body Dressing (QC): 6 Lower Body Dressing(FIM): 6 Lower Body Dressing (QC): 6 On/Off Footwear (QC): 6 Toileting(FIM): 6 Toileting Hygiene (QC): 6 Toilet/Commode Transfer(FIM): 6 Toilet/Commode Transfer (QC): 6 Shower Transfer(FIM): 5 Additional Goals: 1-Demonstrate ADL Tasks, 2-Verbalize Understanding, 3- ImproveStrength/[place] 1=Demonstrate adherence to instructed precautions during ADL tasks. 2=Patient will verbalize/demonstrate understanding of assistive devices/ modifications for ADL. 3=Patient will improve strength/tolerance for activity to enable patient to perform ADL's. OT Education/Plan Discharge Recommendations Plan/Recommendations: Continue POC Treatment Plan/Plan of Care Patient would benefit from OT for education, treatment and training to promote independence in ADL's, mobility, safety and/or upper extremity function for ADL' s. Plan of Care: ADL Retraining, Functional Mobility, Group Exercise/Act as Ind, UE Funct Exercise/Act Treatment Duration: September 07, 2018 Frequency: At least 5 of 7 days/Wk (IRF) Estimated Hrs Per Day: 1.5 hours per day Rehab Potential: Fair Time/GCodes Start Time: 08:00 Stop Time: 09:00 Total Time Billed (hr/min): 60 Billed Treatment Time 1 visit, ADLx3(45minutes), EX(15minutes) BENJY MALONEY OT Aug 20, 2018 08:51
[2018-08-20 09:12] VITALS: BP 119/67
[2018-08-20] MEDS: RIVAROXABAN 10 MG TABLET (XARELTO) PO SCH (09:13)
[2018-08-20] MEDS: ASPIRIN E.C. 81 MG (ECOTRIN) TAB PO SCH (09:13)
[2018-08-20] MEDS: lisINopril 20 MG (PRINIVIL) TABLET PO SCH ×2 (09:13→21:01)
[2018-08-20] MEDS: amLODIPine 5 MG (NORVASC) TAB PO SCH (09:13)
[2018-08-20] MEDS: ALLOPURINOL 100 MG (ZYLOPRIM) TAB PO SCH ×2 (09:13→21:01)
--- NOTE | 2018-08-20 11:32 | Physical Therapy Daily Note ---
PT Daily Note-Current Subjective Patient in recliner pre tx, agrees to PT, has 8/10 pain in left hip. Appearance Patient in wheelchair at bedside post tx, has continuation of PT right now by a different therapist. Has nurse call. Mental Status Patient Orientation: Person, Place, Situation Transfers Therapy Code Descriptions/Definitions Functional [place] Measure: 0=Not Assessed/NA 4=Minimal Assistance 1=Total Assistance 5=Supervision or Setup 2=Maximal Assistance 6=Modified [place] 3=Moderate Assistance 7=Complete [place] Therapy Quality Codes: 6 Independent with activity with or without an assistive device 5 Patient requires set up or clean up by helper. Patient completes activity by themselves 4 Supervision or touching assist (CGA). [place] provide cues , steadying assist 3 The helper provides less than half the effort to complete the activity 2 The helper provides more than half the effort to complete the activity 1 Dependent. The helper does all the effort to complete an activity 7 Patient refused to complete or attempt activity 9 The patient did not perform the activity before the current illness or injury 88 Not attempted due to Medical conditions or safety concerns Transfers (B, C, W/C) (FIM): 4 Sit to/from Stand: 4 Bed to/from Chair: 4 CGA, good safety and use of hands Weight Bearing Right Lower Extremity: Right Full Weight Bearing Left Lower Extremity: Left Touch Toe Bearing Gait Training Gait (FIM): 1 Distance: 10'x2 Gait Level of Assist: 4 Gait Persons Needed: 1 Gait Assistive Device: FWW Patient has slow, antalgic ambulation, she is able to maintain her TTWB, she takes very short steps but no LOB. Treatments ambulation, transfers Assessment Current Status: Fair Progress improving transfers PT Short Term Goals Short Term Goals Time Frame: Aug 24, 2018 Gait (FIM): 1 Gait Distance Comment: 25' Gait Level of Assist: 4 Gait Assistive Device: FWW Wheelchair Distance: 150' PT Retirement Goals Test Carrier Goals PT Test Carrier Goals Time Frame: September 07, 2018 Transfers (B,C,W/C) (FIM): 5 Sit to Lying (QC): 4 Lying-Sitting on Side/Bed(QC): 4 Sit to Stand (QC): 4 Rollin Roll Left to Right (QC): 4 Chair/[id number] Xfer(QC): 4 Car Transfer (QC): 4 Gait (FIM): 2 Distance: 50' Walk 10 feet (QC): 4 Walk 10ft-Uneven Surface(QC): 4 Walk 50ft with 2 Turns (QC): 4 Gait Level of Assist: 5 Gait Assistive Device: FWW Stairs (FIM): 2 # of Steps: 4 1 Step (curb) (QC): 4 4 Steps (QC): 4 Stairs Level Of Assist: 4 PT Plan Problem List Problem List: Activity Tolerance, Functional Strength, Safety, Balance, Gait, Transfer, Bed Mobility, ROM Treatment/Plan Treatment Plan: Continue Plan of Care Treatment Plan: Bed Mobility, Education, Functional Activity [place], Functional Strength, Group Therapy, Gait, Safety, Therapeutic Exercise, Transfers Treatment Duration: September 07, 2018 Frequency: At least 5 of 7 days/Wk (IRF) Estimated Hrs Per Day: 1.5 hours per day Patient and/or Family Agrees t: Yes Safety Risks/Education Patient Education: Gait Training, Transfer Techniques, Correct Positioning, Safety Issues Teaching Recipient: Patient Teaching Methods: Demonstration, Discussion Response to Teaching: Reinforcement Needed Time/GCodes Time In: 1115 Time Out: 1130 Total Billed Treatment Time: 15 Total Billed Treatment 1 visit GT 15' BILLY GALLOWAY PT Aug 20, 2018 11:32
--- NOTE | 2018-08-20 14:18 | Physical Therapy Daily Note ---
PT Daily Note-Current Subjective Pt. was in WC in room upon arrival and agreed to therapy. Pt. reported pain 9/ 10 in her L hip. Appearance Pt. has pitting edema in B LE with the L > R. Attempted to don pt. shoes with noted tight secondary to edema. Transfers Therapy Code Descriptions/Definitions Functional [place] Measure: 0=Not Assessed/NA 4=Minimal Assistance 1=Total Assistance 5=Supervision or Setup 2=Maximal Assistance 6=Modified [place] 3=Moderate Assistance 7=Complete [place] Therapy Quality Codes: 6 Independent with activity with or without an assistive device 5 Patient requires set up or clean up by helper. Patient completes activity by themselves 4 Supervision or touching assist (CGA). [place] provide cues , steadying assist 3 The helper provides less than half the effort to complete the activity 2 The helper provides more than half the effort to complete the activity 1 Dependent. The helper does all the effort to complete an activity 7 Patient refused to complete or attempt activity 9 The patient did not perform the activity before the current illness or injury 88 Not attempted due to Medical conditions or safety concerns Transfers (B, C, W/C) (FIM): 3 Scootin Supine to/from Sit: 3 Sit to/from Stand: 4 When completing supine to sit transfers, pt. complains of increased pain in the L hip. Pt. needs positive feedback and step by step instructions for sup to sit transfers. Pt. has increased anxiety regarding transfers. Weight Bearing Right Lower Extremity: Right Full Weight Bearing Left Lower Extremity: Left Touch Toe Bearing Gait Training Does the Patient Walk?: Yes Gait (FIM): 1 Distance (FIM): 1=up to 49 ft Distance: 8' Gait Level of Assist: 4 Gait Persons Needed: 1 Gait Assistive Device: FWW Pt. has difficulty maintaining TTWB. Pt. appears to have increased discomfort during swing phase of the R LE. Pt. fatigues quickly. Wheelchair Training Does the Pt Use a Wheelchair?: Yes Wheelchair (FIM): 4 Distance: 100' Type of Wheelchair: Manual Pt. needed verbal instruction when maneuvering the WC towards the therapy room and physical assistance for breaking the WC. Exercises Seated Therapy Exercises: Ankle pumps, Long arc quads, Kicking activity, Hamstring Curls, Hip abd/add, Glut set Seated Reps: 12 Treatments Pt. complained of severe pain when transferring from sit to sup in her L hip. Once in supine therapist placed bolster underneath knees to flex the hips and help relieve stress on the L hip. Pt. stated that the pain decreased in this position. Nurse presented with medication to help with pain management. Assessment Current Status: Fair Progress Pt. anxiety level and complaints of pain limit her functional mobility. Pt. requires encouragement and positive feedback to give full effort during treatment. PT Short Term Goals Short Term Goals Time Frame: Aug 24, 2018 Gait (FIM): 1 Gait Distance Comment: 25' Gait Level of Assist: 4 Gait Assistive Device: FWW Wheelchair Distance: 150' PT Digital Experience Manager Goals Digital Experience Manager Goals PT Long-Term Goals Time Frame: September 07, 2018 Transfers (B,C,W/C) (FIM): 5 Sit to Lying (QC): 4 Lying-Sitting on Side/Bed(QC): 4 Sit to Stand (QC): 4 Rollin Roll Left to Right (QC): 4 Chair/Jgi-og-Fmzwd Xfer(QC): 4 Car Transfer (QC): 4 Gait (FIM): 2 Distance: 50' Walk 10 feet (QC): 4 Walk 10ft-Uneven Surface(QC): 4 Walk 50ft with 2 Turns (QC): 4 Gait Level of Assist: 5 Gait Assistive Device: FWW Stairs (FIM): 2 # of Steps: 4 1 Step (curb) (QC): 4 4 Steps (QC): 4 Stairs Level Of Assist: 4 PT Plan Treatment/Plan Treatment Plan: Continue Plan of Care Treatment Plan: Bed Mobility, Education, Functional Activity [place], Functional Strength, Group Therapy, Gait, Safety, Therapeutic Exercise, Transfers Treatment Duration: September 07, 2018 Frequency: At least 5 of 7 days/Wk (IRF) Estimated Hrs Per Day: 1.5 hours per day Patient and/or Family Agrees t: Yes Safety Risks/Education Patient Education: Gait Training, Transfer Techniques, Correct Positioning, W/ C Management, Disease Process, Safety Issues Teaching Recipient: Patient Teaching Methods: Demonstration, Discussion Response to Teaching: Verbalize Understanding, Return Demonstration, Reinforcement Needed Time/GCodes Time In: 1135 Time Out: 1220 Total Billed Treatment Time: 45 Total Billed Treatment 1, FA x 20 min, GT x 10 min, EX x 15 min G Codes Necessary: AVA Hammonds PRICING COORDINATOR Aug 20, 2018 14:18
--- NOTE | 2018-08-20 14:28 | Therapy Group Daily Note ---
Therapy Daily Group Note Patient Education Topic Home Safety, Fall Prevention, Energy Cons Session Ratio (pt:therapist): 4:1 Goal of Session: Home Safety Strategies Goal Met for this Session: Yes Pt Benefit of Group: F/U Use of Strategies @Home, Increased Functional Safety, Recognition of Peers, Socialization Other/Notes Pt went to OT group this pm via w/c. Pt introduced self to group for socialization. Education was provided regarding home safety including potential hazards and solutions for common problem areas. Education also included energy conservation during functional tasks. Pt contributed appropriately to group discussion and was able to identify possible areas for improvement needed in her own home situation. Pt actively listened to education and states understanding. Pt returned to room, sitting in chair with needs met after session. Start Time: 13:00 Stop Time: 14:00 Total Billed Treatment Time: 60 Total Billed Treatment 1 visit, GRP(60minutes) BENJY MALONEY OT Aug 20, 2018 14:27
[2018-08-20] MEDS: metFORMIN 500 MG (GLUCOPHAGE) TAB PO SCH (16:48)
[2018-08-20 18:38] VITALS: BP 136/65
[2018-08-20] MEDS: DOCUSATE SODIUM 100 MG (COLACE) CAP PO SCH (21:01)
[2018-08-21] MEDS: HYDROcodone/APAP 5 MG/325 MG (LORTAB) TAB PO PRN ×5 (01:02→21:49)
[2018-08-21] MEDS: inSUlin ASPART (NovoLOG) 1 UNIT/0.01 ML (CHARGE PER UNIT) SC SCH ×4 (05:09→20:37)
[2018-08-21 05:53] VITALS: BP 128/55
[2018-08-21] MEDS: metFORMIN 500 MG (GLUCOPHAGE) TAB PO SCH ×2 (06:18→17:06)
[2018-08-21] MEDS: meTOprolol TARTRATE 50 MG (LOPRESSOR) TAB PO SCH ×3 (06:18→21:49)
[2018-08-21] MEDS: GLIMEPIRIDE 2 MG (AMARYL) TAB PO SCH (06:18)
--- NOTE | 2018-08-21 08:40 | PM&R Progress Note ---
Subjective HPI/CC On Admission Date Seen by Provider: Aug 21, 2018 Time Seen by Provider: 07:00 Chief Complaint: Left femur fracture HPI: This is an 83[address]WF [address] 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 She did have blood loss, anemia, and was placed on oral iron at that time at [facility]. She had no significant decompensation at [facility], kidney function remained normal, and all home meds were restarted when she arrived at inpatient rehab. Bowel function has remained normal to loose since laxatives had been given post-operatively. She at this current time reports that her leg feels much better with pain medication and she is already participating in therapy although she only arrived last night at 9 PM after an eight hour wait for transportation. I did talk to her about her Hgb of 7.3, Venofer will be ordered and iron will be discontinued due to constipation and bloating complaints. Overall she was independent prior level of functioning and she will work towards returning back to independent living at time of discharge. Subjective/Events-last exam Blood sugars are much improved We will hold Levemir given at night Low dose of glimepiride 2 mg half her regular dose was given this morning Reports leg pain is getting better Bowels are moving well but added Colace to soften the stool Check meds and labs Reviewed therapy notes Confirmed with RN Overall ambulating fairly well with walker on toe-touch Review of Systems General: Fatigue Musculoskeletal: leg pain Objective Exam Vital Signs Vital Signs Date Time Temp Pulse Resp B/P (MAP) Pulse Ox O2 Delivery O2 Flow Rate FiO2 08/21/18 15:57 98.0 94 18 138/68 (91) 98 Room Air Capillary Refill : Less Than 3 Seconds General Appearance: No Apparent Distress, WD/WN, Chronically ill HEENT: PERRL/EOMI, Normal ENT Inspection, Pharynx Normal, Moist Mucous Membranes Neck: Full Range of Motion, Normal Inspection, Non Tender, Supple Respiratory: Chest Non Tender, Lungs Clear, Normal Breath Sounds, No Accessory Muscle Use, No Respiratory Distress Cardiovascular: Regular Rate, Rhythm, No Edema, No Gallop, No JVD, No Murmur Gastrointestinal: Normal Bowel Sounds, No Organomegaly, No Pulsatile Mass, Non Tender, Soft Back: Normal Inspection, No CVA Tenderness, No Vertebral Tenderness Extremity: Normal Capillary Refill, Normal Inspection, Normal Range of Motion, Non Tender, No Calf Tenderness, No Pedal Edema Neurologic/Psychiatric: Alert, Oriented x3, No Motor/Sensory Deficits (limited ROM left leg due to hip pain), Normal Mood/Affect, Abnormal Gait Skin: Normal Color, Warm/Dry Lymphatic: No Adenopathy Results/Procedures Lab Patient resulted labs reviewed. FIM Transfers Therapy Code Descriptions/Definitions Functional [place] Measure: 0=Not Assessed/NA 4=Minimal Assistance 1=Total Assistance 5=Supervision or Setup 2=Maximal Assistance 6=Modified [place] 3=Moderate Assistance 7=Complete [place] Therapy Quality Codes: 6 Independent with activity with or without an assistive device 5 Patient requires set up or clean up by helper. Patient completes activity by themselves 4 Supervision or touching assist (CGA). [place] provide cues , steadying assist 3 The helper provides less than half the effort to complete the activity 2 The helper provides more than half the effort to complete the activity 1 Dependent. The helper does all the effort to complete an activity 7 Patient refused to complete or attempt activity 9 The patient did not perform the activity before the current illness or injury 88 Not attempted due to Medical conditions or safety concerns Mental Status/Objective Comprehension: 7 Expression: 7 Social Interaction: 7 Problem Solvin Memory: 7 ADL-Treatment Feedin (by report) Eating (QC): 6 Groomin Oral Hygiene (QC): 5 Bathin Bathing Location: L Arm, R Arm, L Upper Leg, R Upper Leg, L Lower Leg ( including foot), R Lower Leg (including foot), Chest, Abdomen, Buttocks, Perineal Area Shower/Bathe Self (QC): 3 Upper Extremity Dressin Upper Body Dressing (QC): 5 Lower Extremity Dressin Lower Body Dressing (QC): 4 On/Off Footwear (QC): 4 Toiletin (SBA using grabbars, sitting on toilet to cleanse. CGA to manipulate clothing in standing.) Toileting Hygiene (QC): 4 Toilet/Commode Transfer: 4 (Min A using FWW and grabbars.) Toilet Transfer (QC): 3 Shower: 4 (Min A using FWW, shower bench and grabbars.) Assessment/Plan Assessment and Plan Assess & Plan/Chief Complaint Assessment: Left hip fracture s/p uncomplicated repair DM HTN Acute blood loss anemia Severe iron deficiency placed on iron infusions Gout Loose stools Low albumin Hypoglycemia refractory due to OHA long-acting requiring D10 drip now DC Plan: s/p DM management with insulin but holding and adding IVF D10 at 60cc/hr due to hypoglycemia refractory due to OHA with anemia Pain control Monitor bowels Fall prevention education Home meds Iron infusions Restarted OHA low dose today Hold Levemir (1) Femur fracture, left (2) Diabetes mellitus (3) Hypertension (4) Gout (5) Acute blood loss anemia (6) Iron deficiency (7) Loose stools (8) Serum albumin decreased (9) Hypoglycemia TOBY DELONG DO Aug 21, 2018 08:40
[2018-08-21 09:23] VITALS: BP 130/64
[2018-08-21] MEDS: amLODIPine 5 MG (NORVASC) TAB PO SCH (09:25)
[2018-08-21] MEDS: lisINopril 20 MG (PRINIVIL) TABLET PO SCH ×2 (09:25→20:33)
[2018-08-21] MEDS: ALLOPURINOL 100 MG (ZYLOPRIM) TAB PO SCH ×2 (09:25→20:31)
[2018-08-21] MEDS: RIVAROXABAN 10 MG TABLET (XARELTO) PO SCH (09:26)
[2018-08-21] MEDS: ASPIRIN E.C. 81 MG (ECOTRIN) TAB PO SCH (09:26)
[2018-08-21] MEDS: DOCUSATE SODIUM 100 MG (COLACE) CAP PO SCH ×2 (09:26→20:32)
[2018-08-21] MEDS: IRON SUCROSE 200 MG/10 ML (VENOFER) VIAL IV SCH (09:26)
--- NOTE | 2018-08-21 10:55 | Occupational Ther Daily Note ---
OT Current Status-Daily Note Subjective Pt. reports pain in left hip. 10/04. It is not time for pain medication at beginning of treatment, but at end of treatment, nursing is notified that pt. is ready for it. Appearance Pt. up in chair. Alert and oriented. Very pleasant and agrees to work with OT. Mental Status/Objective Patient Orientation: Person, Place, Time, Situation Therapy Code Descriptions/Definitions Functional [place] Measure: 0=Not Assessed/NA 4=Minimal Assistance 1=Total Assistance 5=Supervision or Setup 2=Maximal Assistance 6=Modified [place] 3=Moderate Assistance 7=Complete [place] Attachments: IV ADL-Treatment Therapy Code Descriptions/Definitions Functional [place] Measure: 0=Not Assessed/NA 4=Minimal Assistance 1=Total Assistance 5=Supervision or Setup 2=Maximal Assistance 6=Modified [place] 3=Moderate Assistance 7=Complete [place] Therapy Quality Codes: 6 Independent with activity with or without an assistive device 5 Patient requires set up or clean up by helper. Patient completes activity by themselves 4 Supervision or touching assist (CGA). [place] provide cues , steadying assist 3 The helper provides less than half the effort to complete the activity 2 The helper provides more than half the effort to complete the activity 1 Dependent. The helper does all the effort to complete an activity 7 Patient refused to complete or attempt activity 9 The patient did not perform the activity before the current illness or injury 88 Not attempted due to Medical conditions or safety concerns Grooming (FIM): 5 (Set up at chair to brush teeth and hair.) Oral Hygiene (QC): 5 Bathing (FIM): 5 (Pt. requires SBA to wash upper body and lower body. However , declines standing to wash jon area, as she has already cleansed this this morning in bathroom.) Shower/Bathe Self (QC): 4 (Pt. requested to spongebathe in room instead of shower.) Upper Body (FIM): 5 (SBA to remove and don gown from home.) Upper Body Dressing (QC): 4 Lower Body Dressing (FIM): 5 (SBA with AE to doff and don slipper socks.) Lower Body Dressing (QC): 4 On/Off Footwear (QC): 4 Other Treatment OT provided pt. with LH sponge. Pt. able to bathe legs and feet with this. States that she has a fresh brief on and so does not want to change it. Pt. tolerated ADLs well. Legs elevated and ice pack applied to left hip after treatment. Education OT Patient Education: Correct positioning, Modified ADL techniques, Progress toward Goal/Update tx plan, Purpose of tx/functional activities, Reviewed precautions, Rehab process, Transfer techniques, Use of adapted equipment Teaching Recipient: Patient Teaching Methods: Demonstration, Discussion Response to Teaching: Verbalize Understanding, Return Demonstration OT Short Term Goals Short Term Goals Time Frame: Aug 24, 2018 Bathing(FIM): 4 Lower Body Dressing(FIM): 4 Toileting(FIM): 4 Shower Transfer(FIM): 4 Additional Short Term Goals: 1-Demonstrate ADL Tasks, 2-Verbalize Understanding , 3-ImproveStrength/[place] 1=Demonstrate adherence to instructed precautions during ADL tasks. 2=Patient will verbalize/demonstrate understanding of assistive devices/ modifications for ADL. 3=Patient will improve strength/tolerance for activity to enable patient to perform ADL's. OT Canal Superintendent Goals Canal Superintendent Goals Time Frame: September 07, 2018 Eating (FIM): 7 Eating (QC): 6 Groomin Oral Hygiene (QC): 6 Bathing(FIM): 5 Shower/Bathe Self (QC): 5 Upper Body Dressing(FIM): 6 Upper Body Dressing (QC): 6 Lower Body Dressing(FIM): 6 Lower Body Dressing (QC): 6 On/Off Footwear (QC): 6 Toileting(FIM): 6 Toileting Hygiene (QC): 6 Toilet/Commode Transfer(FIM): 6 Toilet/Commode Transfer (QC): 6 Shower Transfer(FIM): 5 Additional Goals: 1-Demonstrate ADL Tasks, 2-Verbalize Understanding, 3- ImproveStrength/[place] 1=Demonstrate adherence to instructed precautions during ADL tasks. 2=Patient will verbalize/demonstrate understanding of assistive devices/ modifications for ADL. 3=Patient will improve strength/tolerance for activity to enable patient to perform ADL's. OT Education/Plan Problem List/Assessment Assessment: Decreased Activ Tolerance, Dependent Transfers, Impaired I ADL's, Impaired Self-Care Skills Discharge Recommendations Plan/Recommendations: Continue POC Therapy D/C Recommendations: Home w/ Family Support, Occupational Therapy Home Care Treatment Plan/Plan of Care Treatment,Training & Education: Yes Patient would benefit from OT for education, treatment and training to promote independence in ADL's, mobility, safety and/or upper extremity function for ADL' s. Plan of Care: ADL Retraining, Functional Mobility, Group Exercise/Act as Ind, UE Funct Exercise/Act Treatment Duration: September 07, 2018 Frequency: At least 5 of 7 days/Wk (IRF) Estimated Hrs Per Day: 1.5 hours per day Rehab Potential: Good Time/GCodes Start Time: 09:50 Stop Time: 10:30 Total Time Billed (hr/min): 40 Billed Treatment Time 1, ADL x 3 HINA HERRERA OT Aug 21, 2018 10:55
--- NOTE | 2018-08-21 12:41 | Physical Therapy Daily Note ---
PT Daily Note-Current Subjective Pt reports she is still having great difficulty getting in and out of bed due to pain. Pain is 10/10 at times. Mental Status Patient Orientation: Normal For Age Transfers Therapy Code Descriptions/Definitions Functional [place] Measure: 0=Not Assessed/NA 4=Minimal Assistance 1=Total Assistance 5=Supervision or Setup 2=Maximal Assistance 6=Modified [place] 3=Moderate Assistance 7=Complete [place] Therapy Quality Codes: 6 Independent with activity with or without an assistive device 5 Patient requires set up or clean up by helper. Patient completes activity by themselves 4 Supervision or touching assist (CGA). [place] provide cues , steadying assist 3 The helper provides less than half the effort to complete the activity 2 The helper provides more than half the effort to complete the activity 1 Dependent. The helper does all the effort to complete an activity 7 Patient refused to complete or attempt activity 9 The patient did not perform the activity before the current illness or injury 88 Not attempted due to Medical conditions or safety concerns Practiced transfers using FWW utilizing TTWB and verbal cues for sequence. Transfers Min Assist for (L) Leg. Weight Bearing Right Lower Extremity: Right Full Weight Bearing Left Lower Extremity: Left Touch Toe Bearing Gait Training Distance: 8 Gait Assistive Device: Parallel Bars 8 ft in parallel bars with Min A to advance the (L) LE x 4 trials Exercises Seated Therapy Exercises: Ankle pumps, Sit to stand, Long arc quads, Hip flexion, Hip abd/add Seated Reps: 15 active assist exercise to ensure movement through full available range. Assessment Pain is the primary limiting factor. Her hip pain limits strength and functional mobility. Pt will benefit from continued therapy to address weakness and impaired mobility. PT Short Term Goals Short Term Goals Time Frame: Aug 24, 2018 Gait (FIM): 1 Gait Distance Comment: 25' Gait Level of Assist: 4 Gait Assistive Device: FWW Wheelchair Distance: 100' PT Half-Way Goals Half-Way Goals PT Milk Processing Worker Goals Time Frame: September 07, 2018 Transfers (B,C,W/C) (FIM): 5 Sit to Lying (QC): 4 Lying-Sitting on Side/Bed(QC): 4 Sit to Stand (QC): 4 Rollin Roll Left to Right (QC): 4 Chair/Byp-en-Zzajj Xfer(QC): 4 Car Transfer (QC): 4 Gait (FIM): 2 Distance: 50' Walk 10 feet (QC): 4 Walk 10ft-Uneven Surface(QC): 4 Walk 50ft with 2 Turns (QC): 4 Gait Level of Assist: 5 Gait Assistive Device: FWW Stairs (FIM): 2 # of Steps: 4 1 Step (curb) (QC): 4 4 Steps (QC): 4 Stairs Level Of Assist: 4 PT Plan Treatment/Plan Treatment Plan: Continue Plan of Care Treatment Plan: Bed Mobility, Education, Functional Activity [place], Functional Strength, Group Therapy, Gait, Safety, Therapeutic Exercise, Transfers Treatment Duration: September 07, 2018 Frequency: At least 5 of 7 days/Wk (IRF) Estimated Hrs Per Day: 1.5 hours per day Patient and/or Family Agrees t: Yes Time/GCodes Time In: 1110 Time Out: 1140 Total Billed Treatment Time: 30 Total Billed Treatment visit, gait 15 min, ex 15 min ALEXEY MICHAUD PT Aug 21, 2018 12:41
[2018-08-21 15:57] VITALS: BP 138/68
[2018-08-21] MEDS: SIMETHICONE 80 MG (MYLICON) CHEW PO PRN (16:13)
[2018-08-22 05:41] VITALS: BP 141/53
[2018-08-22] MEDS: inSUlin ASPART (NovoLOG) 1 UNIT/0.01 ML (CHARGE PER UNIT) SC SCH ×5 (06:02→20:24)
[2018-08-22] MEDS: meTOprolol TARTRATE 50 MG (LOPRESSOR) TAB PO SCH ×3 (06:48→21:18)
[2018-08-22] MEDS: GLIMEPIRIDE 2 MG (AMARYL) TAB PO SCH (06:48)
[2018-08-22] MEDS: metFORMIN 500 MG (GLUCOPHAGE) TAB PO SCH ×2 (06:49→16:49)
[2018-08-22] MEDS: HYDROcodone/APAP 5 MG/325 MG (LORTAB) TAB PO PRN ×3 (06:51→22:16)
--- NOTE | 2018-08-22 07:29 | PM&R Progress Note ---
Subjective HPI/CC On Admission Date Seen by Provider: Aug 22, 2018 Time Seen by Provider: 07:15 Chief Complaint: Left femur fracture HPI: This is an 83[address] 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 She did have blood loss, anemia, and was placed on oral iron at that time at [facility]. She had no significant decompensation at [facility], kidney function remained normal, and all home meds were restarted when she arrived at inpatient rehab. Bowel function has remained normal to loose since laxatives had been given post-operatively. She at this current time reports that her leg feels much better with pain medication and she is already participating in therapy although she only arrived last night at 9 PM after an eight hour wait for transportation. I did talk to her about her Hgb of 7.3, Venofer will be ordered and iron will be discontinued due to constipation and bloating complaints. Overall she was independent prior level of functioning and she will work towards returning back to independent living at time of discharge. Subjective/Events-last exam Blood sugars are much improved and I reviewed all from yesterday and today We will continue to hold Levemir given at night and she is updated on that plan Low dose of glimepiride 2 mg half her regular dose was given yesterday morning and that is working very well Reports leg pain is getting better Bowels are moving well but added Colace to soften the stool Check meds and labs Reviewed therapy notes Confirmed with RN Overall ambulating fairly well with walker on toe-touch Objective Exam Vital Signs Vital Signs Date Time Temp Pulse Resp B/P (MAP) Pulse Ox O2 Delivery O2 Flow Rate FiO2 08/22/18 17:20 99.0 70 18 132/62 (85) 98 Room Air Capillary Refill : Less Than 3 Seconds General Appearance: No Apparent Distress, WD/WN, Chronically ill HEENT: PERRL/EOMI, Normal ENT Inspection, Pharynx Normal, Moist Mucous Membranes Neck: Full Range of Motion, Normal Inspection, Non Tender, Supple Respiratory: Chest Non Tender, Lungs Clear, Normal Breath Sounds, No Accessory Muscle Use, No Respiratory Distress Cardiovascular: Regular Rate, Rhythm, No Edema, No Gallop, No JVD, No Murmur Gastrointestinal: Normal Bowel Sounds, No Organomegaly, No Pulsatile Mass, Non Tender, Soft Back: Normal Inspection, No CVA Tenderness, No Vertebral Tenderness Extremity: Normal Capillary Refill, Normal Inspection, Normal Range of Motion, Non Tender, No Calf Tenderness, No Pedal Edema Neurologic/Psychiatric: Alert, Oriented x3, No Motor/Sensory Deficits (limited ROM left leg due to hip pain), Normal Mood/Affect, Abnormal Gait Skin: Normal Color, Warm/Dry Lymphatic: No Adenopathy Results/Procedures Lab Patient resulted labs reviewed. FIM Transfers Therapy Code Descriptions/Definitions Functional [place] Measure: 0=Not Assessed/NA 4=Minimal Assistance 1=Total Assistance 5=Supervision or Setup 2=Maximal Assistance 6=Modified [place] 3=Moderate Assistance 7=Complete [place] Therapy Quality Codes: 6 Independent with activity with or without an assistive device 5 Patient requires set up or clean up by helper. Patient completes activity by themselves 4 Supervision or touching assist (CGA). [place] provide cues , steadying assist 3 The helper provides less than half the effort to complete the activity 2 The helper provides more than half the effort to complete the activity 1 Dependent. The helper does all the effort to complete an activity 7 Patient refused to complete or attempt activity 9 The patient did not perform the activity before the current illness or injury 88 Not attempted due to Medical conditions or safety concerns Mental Status/Objective Comprehension: 7 Expression: 7 Social Interaction: 7 Problem Solvin Memory: 7 ADL-Treatment Feedin (by report) Eating (QC): 6 Groomin (Set up at chair to brush teeth and hair.) Oral Hygiene (QC): 5 Bathin (Pt. requires SBA to wash upper body and lower body. However, declines standing to wash jon area, as she has already cleansed this this morning in bathroom.) Bathing Location: L Arm, R Arm, L Upper Leg, R Upper Leg, L Lower Leg ( including foot), R Lower Leg (including foot), Chest, Abdomen, Buttocks, Perineal Area Shower/Bathe Self (QC): 4 (Pt. requested to spongebathe in room instead of shower.) Upper Extremity Dressin (SBA to remove and don gown from home.) Upper Body Dressing (QC): 4 Lower Extremity Dressin (SBA with AE to doff and don slipper socks.) Lower Body Dressing (QC): 4 On/Off Footwear (QC): 4 Toiletin (SBA using grabbars, sitting on toilet to cleanse. CGA to manipulate clothing in standing.) Toileting Hygiene (QC): 4 Toilet/Commode Transfer: 4 (Min A using FWW and grabbars.) Toilet Transfer (QC): 3 Shower: 4 (Min A using FWW, shower bench and grabbars.) Assessment/Plan Assessment and Plan Assess & Plan/Chief Complaint Assessment: Left hip fracture s/p uncomplicated repair DM HTN Acute blood loss anemia Severe iron deficiency placed on iron infusions Gout Loose stools Low albumin Hypoglycemia refractory due to OHA long-acting requiring D10 drip now DC Plan: s/p DM management with insulin but holding and adding IVF D10 at 60cc/hr due to hypoglycemia refractory due to OHA with anemia Pain control Monitor bowels Fall prevention education Home meds Iron infusions Restarted OHA low dose yesterday at 1/2 home dose Hold Levemir (1) Femur fracture, left (2) Diabetes mellitus (3) Hypertension (4) Gout (5) Acute blood loss anemia (6) Iron deficiency (7) Loose stools (8) Serum albumin decreased (9) Hypoglycemia TOBY DELONG DO Aug 22, 2018 07:29
[2018-08-22] MEDS: ASPIRIN E.C. 81 MG (ECOTRIN) TAB PO SCH (08:55)
[2018-08-22] MEDS: amLODIPine 5 MG (NORVASC) TAB PO SCH (08:55)
[2018-08-22] MEDS: ALLOPURINOL 100 MG (ZYLOPRIM) TAB PO SCH ×2 (08:55→21:18)
[2018-08-22] MEDS: lisINopril 20 MG (PRINIVIL) TABLET PO SCH ×2 (08:55→21:18)
[2018-08-22] MEDS: RIVAROXABAN 10 MG TABLET (XARELTO) PO SCH (08:55)
[2018-08-22] MEDS: DOCUSATE SODIUM 100 MG (COLACE) CAP PO SCH ×2 (10:34→21:18)
[2018-08-22 17:20] VITALS: BP 132/62
[2018-08-23 05:02] LABS: BASOPHILS # (AUTO) 0.1 10^3/uL (0.0-0.1); BASOPHILS % (AUTO) 1 % (0-10); EOSINOPHILS # (AUTO) 0.2 10^3/uL (0.0-0.3); EOSINOPHILS % (AUTO) 3 % (0-10); HEMATOCRIT 36 % (35-52); HEMOGLOBIN 11.4 G/DL (11.5-16.0); LYMPHOCYTES % (AUTO) 15 % (12-44); MEAN CORPUSCULAR HEMOGLOBIN 30 PG (25-34); MEAN CORPUSCULAR HGB CONC 32 G/DL (32-36); MEAN CORPUSCULAR VOLUME 94 FL (80-99); MEAN PLATELET VOLUME 11.9 FL (7.4-10.4); MONOCYTES # (AUTO) 0.8 X 10^3 (0.0-1.0); MONOCYTES % (AUTO) 12 % (0-12); NEUTROPHILS # (AUTO) 4.9 X 10^3 (1.8-7.8); NEUTROPHILS % (AUTO) 70 % (42-75); PLATELET COUNT 277 10^3/uL (130-400); RED CELL DISTRIBUTION WIDTH 13.8 % (10.0-14.5); WHITE BLOOD COUNT 6.9 10^3/uL (4.3-11.0)
[2018-08-23 05:23] LABS: ALANINE AMINOTRANSFERASE 16 U/L (0-55); ALBUMIN 3.5 GM/DL (3.2-4.5); ALKALINE PHOSPHATASE 191 U/L (40-136); BILIRUBIN,TOTAL 0.2 MG/DL (0.1-1.0); BUN/CREATININE RATIO 34; CALCIUM 8.7 MG/DL (8.5-10.1); CARBON DIOXIDE 21 MMOL/L (21-32); CHLORIDE 109 MMOL/L (98-107); CREATININE SERUM 0.61 MG/DL (0.60-1.30); GFR ESTIMATED > 60; GLUCOSE 98 MG/DL (70-105); POTASSIUM 4.3 MMOL/L (3.6-5.0); SODIUM 140 MMOL/L (135-145); TOTAL PROTEIN 5.6 GM/DL (6.4-8.2)
[2018-08-23 05:26] VITALS: BP 131/64
[2018-08-23] MEDS: inSUlin ASPART (NovoLOG) 1 UNIT/0.01 ML (CHARGE PER UNIT) SC SCH ×4 (05:54→22:19)
[2018-08-23] MEDS: meTOprolol TARTRATE 50 MG (LOPRESSOR) TAB PO SCH ×3 (06:22→20:51)
[2018-08-23] MEDS: metFORMIN 500 MG (GLUCOPHAGE) TAB PO SCH ×2 (06:22→17:02)
[2018-08-23] MEDS: GLIMEPIRIDE 2 MG (AMARYL) TAB PO SCH (06:23)
--- NOTE | 2018-08-23 08:21 | PM&R Progress Note ---
Subjective HPI/CC On Admission Date Seen by Provider: Aug 23, 2018 Time Seen by Provider: 08:30 Chief Complaint: Left femur fracture HPI: This is an 83yo[address] of [address] 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 She did have blood loss, anemia, and was placed on oral iron at that time at [facility]. She had no significant decompensation at [facility], kidney function remained normal, and all home meds were restarted when she arrived at inpatient rehab. Bowel function has remained normal to loose since laxatives had been given post-operatively. She at this current time reports that her leg feels much better with pain medication and she is already participating in therapy although she only arrived last night at 9 PM after an eight hour wait for transportation. I did talk to her about her Hgb of 7.3, Venofer will be ordered and iron will be discontinued due to constipation and bloating complaints. Overall she was independent prior level of functioning and she will work towards returning back to independent living at time of discharge. Subjective/Events-last exam Drainage from the incision has decreased significantly Blood sugar checks are doing very well Improved labs are noted with hgb responding to iron infusions Bowels are moving with Miralax and stool softener Checked meds and labs Participating in all therapies Reviewed therapy notes Conferred with RN Pain is well controlled Review of Systems General: Fatigue Musculoskeletal: leg pain Objective Exam Vital Signs Vital Signs Date Time Temp Pulse Resp B/P (MAP) Pulse Ox O2 Delivery O2 Flow Rate FiO2 08/23/18 18:51 98.6 67 20 128/42 (70) 98 Room Air Capillary Refill : Less Than 3 Seconds General Appearance: No Apparent Distress, WD/WN, Chronically ill HEENT: PERRL/EOMI, Normal ENT Inspection, Pharynx Normal, Moist Mucous Membranes Neck: Full Range of Motion, Normal Inspection, Non Tender, Supple Respiratory: Chest Non Tender, Lungs Clear, Normal Breath Sounds, No Accessory Muscle Use, No Respiratory Distress Cardiovascular: Regular Rate, Rhythm, No Edema, No Gallop, No JVD, No Murmur Gastrointestinal: Normal Bowel Sounds, No Organomegaly, No Pulsatile Mass, Non Tender, Soft Back: Normal Inspection, No CVA Tenderness, No Vertebral Tenderness Extremity: Normal Capillary Refill, Normal Inspection, Normal Range of Motion, Non Tender, No Calf Tenderness, No Pedal Edema Neurologic/Psychiatric: Alert, Oriented x3, No Motor/Sensory Deficits, Normal Mood/Affect, Abnormal Gait Skin: Normal Color, Warm/Dry Lymphatic: No Adenopathy Results/Procedures Lab Laboratory Tests 08/23/18 04:40 Patient resulted labs reviewed. FIM Transfers Therapy Code Descriptions/Definitions Functional [place] Measure: 0=Not Assessed/NA 4=Minimal Assistance 1=Total Assistance 5=Supervision or Setup 2=Maximal Assistance 6=Modified [place] 3=Moderate Assistance 7=Complete [place] Therapy Quality Codes: 6 Independent with activity with or without an assistive device 5 Patient requires set up or clean up by helper. Patient completes activity by themselves 4 Supervision or touching assist (CGA). [place] provide cues , steadying assist 3 The helper provides less than half the effort to complete the activity 2 The helper provides more than half the effort to complete the activity 1 Dependent. The helper does all the effort to complete an activity 7 Patient refused to complete or attempt activity 9 The patient did not perform the activity before the current illness or injury 88 Not attempted due to Medical conditions or safety concerns Mental Status/Objective Comprehension: 7 Expression: 7 Social Interaction: 7 Problem Solvin Memory: 7 ADL-Treatment Feedin (by report) Eating (QC): 6 Groomin (Set up at chair to brush teeth and hair.) Oral Hygiene (QC): 5 Bathin (Pt. requires SBA to wash upper body and lower body. However, declines standing to wash jon area, as she has already cleansed this this morning in bathroom.) Bathing Location: L Arm, R Arm, L Upper Leg, R Upper Leg, L Lower Leg ( including foot), R Lower Leg (including foot), Chest, Abdomen, Buttocks, Perineal Area Shower/Bathe Self (QC): 4 (Pt. requested to spongebathe in room instead of shower.) Upper Extremity Dressin (SBA to remove and don gown from home.) Upper Body Dressing (QC): 4 Lower Extremity Dressin (SBA with AE to doff and don slipper socks.) Lower Body Dressing (QC): 4 On/Off Footwear (QC): 4 Toiletin (SBA using grabbars, sitting on toilet to cleanse. CGA to manipulate clothing in standing.) Toileting Hygiene (QC): 4 Toilet/Commode Transfer: 4 (Min A using FWW and grabbars.) Toilet Transfer (QC): 3 Shower: 4 (Min A using FWW, shower bench and grabbars.) Assessment/Plan Assessment and Plan Assess & Plan/Chief Complaint Assessment: Left hip fracture s/p uncomplicated repair DM HTN Acute blood loss anemia Severe iron deficiency placed on iron infusions Gout Loose stools Low albumin Hypoglycemia refractory due to OHA long-acting requiring D10 drip now DC Plan: s/p DM management with insulin but holding and adding IVF D10 at 60cc/hr due to hypoglycemia refractory due to OHA with anemia Pain control Monitor bowels Fall prevention education Home meds Iron infusions Restarted OHA low dose yesterday at 1/2 home dose Hold Levemir (1) Femur fracture, left (2) Diabetes mellitus (3) Hypertension (4) Gout (5) Acute blood loss anemia (6) Iron deficiency (7) Loose stools (8) Serum albumin decreased (9) Hypoglycemia TOBY DELONG DO Aug 23, 2018 08:21
[2018-08-23] MEDS: IRON SUCROSE 200 MG/10 ML (VENOFER) VIAL IV SCH (09:58)
[2018-08-23] MEDS: amLODIPine 5 MG (NORVASC) TAB PO SCH (09:58)
[2018-08-23] MEDS: DOCUSATE SODIUM 100 MG (COLACE) CAP PO SCH ×2 (09:58→20:51)
[2018-08-23] MEDS: ASPIRIN E.C. 81 MG (ECOTRIN) TAB PO SCH (09:58)
[2018-08-23] MEDS: RIVAROXABAN 10 MG TABLET (XARELTO) PO SCH (09:58)
[2018-08-23] MEDS: lisINopril 20 MG (PRINIVIL) TABLET PO SCH ×2 (09:58→20:51)
[2018-08-23] MEDS: ALLOPURINOL 100 MG (ZYLOPRIM) TAB PO SCH ×2 (09:58→20:51)
[2018-08-23 09:59] VITALS: BP 123/66
--- NOTE | 2018-08-23 10:08 | Occupational Ther Daily Note ---
OT Current Status-Daily Note Subjective Pt alert, sitting in recliner. Pt agrees to therapy. No c/o pain. Nrsg in room. Mental Status/Objective Patient Orientation: Person, Place, Time, Situation Therapy Code Descriptions/Definitions Functional [place] Measure: 0=Not Assessed/NA 4=Minimal Assistance 1=Total Assistance 5=Supervision or Setup 2=Maximal Assistance 6=Modified [place] 3=Moderate Assistance 7=Complete [place] Attachments: IV ADL-Treatment Pt declines shower, wants sponge bath. Stated that she will shower tomorrow. Pt adheres to TTWB precautions throughout session. Therapy Code Descriptions/Definitions Functional [place] Measure: 0=Not Assessed/NA 4=Minimal Assistance 1=Total Assistance 5=Supervision or Setup 2=Maximal Assistance 6=Modified [place] 3=Moderate Assistance 7=Complete [place] Therapy Quality Codes: 6 Independent with activity with or without an assistive device 5 Patient requires set up or clean up by helper. Patient completes activity by themselves 4 Supervision or touching assist (CGA). [place] provide cues , steadying assist 3 The helper provides less than half the effort to complete the activity 2 The helper provides more than half the effort to complete the activity 1 Dependent. The helper does all the effort to complete an activity 7 Patient refused to complete or attempt activity 9 The patient did not perform the activity before the current illness or injury 88 Not attempted due to Medical conditions or safety concerns Grooming (FIM): 6 (Sitting at sink, pt able to complete by sink.) Oral Hygiene (QC): 6 Bathing (FIM): 4 (Sponge bath completed. Pt declined washing lower legs/feet. Sitting at sink, pt able to complete all seated areas by self. CGA in standing while pt cleanses buttocks/jon area. Pt does have difficulty with reaching buttocks at this time, but is able to complete with time.) Shower/Bathe Self (QC): 4 Upper Body (FIM): 5 (After set up, pt able to complete by self.) Upper Body Dressing (QC): 5 Lower Body Dressing (FIM): 5 (SBA in standing when manipulating clothing. Using AE to complete lower body dressing by self.) Lower Body Dressing (QC): 4 Toileting (FIM): 4 (CGA in standing to manipulate clothing and to cleanse buttocks. Toilet tongs given to try due to pt's difficulty with reaching buttocks to cleanse.) Toileting Hygiene (QC): 4 Toilet/Commode Transfer (FIM): 4 (CGA for safety using FWW and grabbars.) Toilet Transfer (QC): 4 Other Treatment Pt transported via w/c to therapy gym. Complete resistive fine motor tasks to increase pinch and instrumentation engineering technician strength for daily functional tasks. After therapy, pt sitting in w/c in therapy gym. PT took over care of pt. OT Short Term Goals Short Term Goals Time Frame: Aug 24, 2018 Bathing(FIM): 4 Lower Body Dressing(FIM): 4 Toileting(FIM): 4 Shower Transfer(FIM): 4 Additional Short Term Goals: 1-Demonstrate ADL Tasks, 2-Verbalize Understanding , 3-ImproveStrength/[place] 1=Demonstrate adherence to instructed precautions during ADL tasks. 2=Patient will verbalize/demonstrate understanding of assistive devices/ modifications for ADL. 3=Patient will improve strength/tolerance for activity to enable patient to perform ADL's. OT Long-Term Goals Director Digital Communications Goals Time Frame: September 07, 2018 Eating (FIM): 7 Eating (QC): 6 Groomin Oral Hygiene (QC): 6 Bathing(FIM): 5 Shower/Bathe Self (QC): 5 Upper Body Dressing(FIM): 6 Upper Body Dressing (QC): 6 Lower Body Dressing(FIM): 6 Lower Body Dressing (QC): 6 On/Off Footwear (QC): 6 Toileting(FIM): 6 Toileting Hygiene (QC): 6 Toilet/Commode Transfer(FIM): 6 Toilet/Commode Transfer (QC): 6 Shower Transfer(FIM): 5 Additional Goals: 1-Demonstrate ADL Tasks, 2-Verbalize Understanding, 3- ImproveStrength/[place] 1=Demonstrate adherence to instructed precautions during ADL tasks. 2=Patient will verbalize/demonstrate understanding of assistive devices/ modifications for ADL. 3=Patient will improve strength/tolerance for activity to enable patient to perform ADL's. OT Education/Plan Problem List/Assessment Assessment: Decreased Activ Tolerance, Impaired Self-Care Skills Discharge Recommendations Plan/Recommendations: Continue POC Treatment Plan/Plan of Care Patient would benefit from OT for education, treatment and training to promote independence in ADL's, mobility, safety and/or upper extremity function for ADL' s. Plan of Care: ADL Retraining, Functional Mobility, Group Exercise/Act as Ind, UE Funct Exercise/Act Treatment Duration: September 07, 2018 Frequency: At least 5 of 7 days/Wk (IRF) Estimated Hrs Per Day: 1.5 hours per day Rehab Potential: Good Time/GCodes Start Time: 10:50 Stop Time: 11:00 Total Time Billed (hr/min): 70 Billed Treatment Time 1 visit-ADL 4 (60 min) EX 1 (10 min) COSMO FOUNTAIN Aug 23, 2018 10:08
--- NOTE | 2018-08-23 12:06 | Physical Therapy Daily Note ---
PT Daily Note-Current Subjective Pt. agrees to Rx but states se dreads working on sup to sit and sit to sup b/c it is painful. Pt. states she feels better after Rx stating she has made some progress Transfers Therapy Code Descriptions/Definitions Functional [place] Measure: 0=Not Assessed/NA 4=Minimal Assistance 1=Total Assistance 5=Supervision or Setup 2=Maximal Assistance 6=Modified [place] 3=Moderate Assistance 7=Complete [place] Therapy Quality Codes: 6 Independent with activity with or without an assistive device 5 Patient requires set up or clean up by helper. Patient completes activity by themselves 4 Supervision or touching assist (CGA). [place] provide cues , steadying assist 3 The helper provides less than half the effort to complete the activity 2 The helper provides more than half the effort to complete the activity 1 Dependent. The helper does all the effort to complete an activity 7 Patient refused to complete or attempt activity 9 The patient did not perform the activity before the current illness or injury 88 Not attempted due to Medical conditions or safety concerns Transfers (B, C, W/C) (FIM): 3 Scootin Rollin Supine to/from Sit: 3 (needs assist of mod to min for trunk) Sit to/from Stand: 5 Weight Bearing Right Lower Extremity: Right Full Weight Bearing Left Lower Extremity: Left Touch Toe Bearing Gait Training Does the Patient Walk?: Yes Gait (FIM): 1 Distance (FIM): 1=up to 49 ft (12x2,20ft) Gait Level of Assist: 4 Gait Persons Needed: 1 Gait Assistive Device: FWW maintains TTWB left better with shoe on RLE Exercises Supine Ex: Ankle pumps, Quad Set, Rolling, Glut sets, Heel Slides (assist left) , Short Arc Quads, Scooting, Straight leg raise (assist left), Hip abd/add ( assist left) Supine Reps: 20 Seated Therapy Exercises: Ankle pumps, Sit to stand, Long arc quads Seated Reps: 15 Treatments much emphasis on sup to sit and sit to sup requiring mod assist and pt. requires assist LLE and trunk Assessment Current Status: Good Progress gait and TRFs progressing PT Short Term Goals Short Term Goals Time Frame: Aug 24, 2018 Gait (FIM): 1 Gait Distance Comment: 25' Gait Level of Assist: 4 Gait Assistive Device: FWW Wheelchair Distance: 100' PT Grounding Engineer Goals Grounding Engineer Goals PT Half-Way Goals Time Frame: September 07, 2018 Transfers (B,C,W/C) (FIM): 5 Sit to Lying (QC): 4 Lying-Sitting on Side/Bed(QC): 4 Sit to Stand (QC): 4 Rollin Roll Left to Right (QC): 4 Chair/[place]Aenek Xfer(QC): 4 Car Transfer (QC): 4 Gait (FIM): 2 Distance: 50' Walk 10 feet (QC): 4 Walk 10ft-Uneven Surface(QC): 4 Walk 50ft with 2 Turns (QC): 4 Gait Level of Assist: 5 Gait Assistive Device: FWW Stairs (FIM): 2 # of Steps: 4 1 Step (curb) (QC): 4 4 Steps (QC): 4 Stairs Level Of Assist: 4 PT Plan Treatment/Plan Treatment Plan: Continue Plan of Care Treatment Plan: Bed Mobility, Education, Functional Activity [place], Functional Strength, Group Therapy, Gait, Safety, Therapeutic Exercise, Transfers Treatment Duration: September 07, 2018 Frequency: At least 5 of 7 days/Wk (IRF) Estimated Hrs Per Day: 1.5 hours per day Patient and/or Family Agrees t: Yes Safety Risks/Education Patient Education: Gait Training, Transfer Techniques, Correct Positioning, Disease Process, Safety Issues Teaching Recipient: Patient Teaching Methods: Demonstration, Discussion Response to Teaching: Verbalize Understanding, Return Demonstration, Reinforcement Needed Time/GCodes Time In: 1100 Time Out: 1200 Total Billed Treatment Time: 60 Total Billed Treatment 1,GT25m,EX20m,FA15m G Codes Necessary: AVA Hammonds ORTHODONTIC TECHNICIAN ASSISTANT Aug 23, 2018 12:06
--- NOTE | 2018-08-23 14:18 | Occupational Ther Daily Note ---
OT Current Status-Daily Note Subjective Pt alert, sitting in recliner. Pt agrees to therapy. No c/o pain at this time. Mental Status/Objective Patient Orientation: Person, Place, Time, Situation Therapy Code Descriptions/Definitions Functional [place] Measure: 0=Not Assessed/NA 4=Minimal Assistance 1=Total Assistance 5=Supervision or Setup 2=Maximal Assistance 6=Modified [place] 3=Moderate Assistance 7=Complete [place] Attachments: IV ADL-Treatment Therapy Code Descriptions/Definitions Functional [place] Measure: 0=Not Assessed/NA 4=Minimal Assistance 1=Total Assistance 5=Supervision or Setup 2=Maximal Assistance 6=Modified [place] 3=Moderate Assistance 7=Complete [place] Therapy Quality Codes: 6 Independent with activity with or without an assistive device 5 Patient requires set up or clean up by helper. Patient completes activity by themselves 4 Supervision or touching assist (CGA). [place] provide cues , steadying assist 3 The helper provides less than half the effort to complete the activity 2 The helper provides more than half the effort to complete the activity 1 Dependent. The helper does all the effort to complete an activity 7 Patient refused to complete or attempt activity 9 The patient did not perform the activity before the current illness or injury 88 Not attempted due to Medical conditions or safety concerns Other Treatment Pt transfer recliner <--> w/c with CGA for safety using FWW. Transported pt to therapy gym via w/c. Pt completed 12 min UE arm bike at 15 [place] resistance to increase strength and activity tolerance for functional tasks. Pt tolerated well. Pt is able to propel w/c with UE's to increase functional mobility and UE strength. After therapy, pt sitting in recliner with call light/phone in reach. All needs met in room. OT Short Term Goals Short Term Goals Time Frame: Aug 24, 2018 Bathing(FIM): 4 Lower Body Dressing(FIM): 4 Toileting(FIM): 4 Shower Transfer(FIM): 4 Additional Short Term Goals: 1-Demonstrate ADL Tasks, 2-Verbalize Understanding , 3-ImproveStrength/[place] 1=Demonstrate adherence to instructed precautions during ADL tasks. 2=Patient will verbalize/demonstrate understanding of assistive devices/ modifications for ADL. 3=Patient will improve strength/tolerance for activity to enable patient to perform ADL's. OT Bakery And Deli Sales Manager Goals Bakery And Deli Sales Manager Goals Time Frame: September 07, 2018 Eating (FIM): 7 Eating (QC): 6 Groomin Oral Hygiene (QC): 6 Bathing(FIM): 5 Shower/Bathe Self (QC): 5 Upper Body Dressing(FIM): 6 Upper Body Dressing (QC): 6 Lower Body Dressing(FIM): 6 Lower Body Dressing (QC): 6 On/Off Footwear (QC): 6 Toileting(FIM): 6 Toileting Hygiene (QC): 6 Toilet/Commode Transfer(FIM): 6 Toilet/Commode Transfer (QC): 6 Shower Transfer(FIM): 5 Additional Goals: 1-Demonstrate ADL Tasks, 2-Verbalize Understanding, 3- ImproveStrength/[place] 1=Demonstrate adherence to instructed precautions during ADL tasks. 2=Patient will verbalize/demonstrate understanding of assistive devices/ modifications for ADL. 3=Patient will improve strength/tolerance for activity to enable patient to perform ADL's. OT Education/Plan Discharge Recommendations Plan/Recommendations: Continue POC Treatment Plan/Plan of Care Patient would benefit from OT for education, treatment and training to promote independence in ADL's, mobility, safety and/or upper extremity function for ADL' s. Plan of Care: ADL Retraining, Functional Mobility, Group Exercise/Act as Ind, UE Funct Exercise/Act Treatment Duration: September 07, 2018 Frequency: At least 5 of 7 days/Wk (IRF) Estimated Hrs Per Day: 1.5 hours per day Rehab Potential: Good Time/GCodes Start Time: 13:20 Stop Time: 13:40 Total Time Billed (hr/min): 20 Billed Treatment Time 1 visit-EX 1 (20 min) COSMO FOUNTAIN Aug 23, 2018 14:18
--- NOTE | 2018-08-23 15:08 | Physical Therapy Daily Note ---
PT Daily Note-Current Subjective Pt. has guests and states that she will work as long as she can work in the room and stay near her friends. Pain Location: No Pain Reported Mental Status Patient Orientation: Normal For Age Transfers Therapy Code Descriptions/Definitions Functional [place] Measure: 0=Not Assessed/NA 4=Minimal Assistance 1=Total Assistance 5=Supervision or Setup 2=Maximal Assistance 6=Modified [place] 3=Moderate Assistance 7=Complete [place] Therapy Quality Codes: 6 Independent with activity with or without an assistive device 5 Patient requires set up or clean up by helper. Patient completes activity by themselves 4 Supervision or touching assist (CGA). [place] provide cues , steadying assist 3 The helper provides less than half the effort to complete the activity 2 The helper provides more than half the effort to complete the activity 1 Dependent. The helper does all the effort to complete an activity 7 Patient refused to complete or attempt activity 9 The patient did not perform the activity before the current illness or injury 88 Not attempted due to Medical conditions or safety concerns sit to stands x 6 CGA Weight Bearing Right Lower Extremity: Right Full Weight Bearing Left Lower Extremity: Left Touch Toe Bearing Gait Training Gait Assistive Device: FWW gait FWW CGA 15ft x 2 TTWBing with shoe on right foot and TTWBing left. Pt. fatigues with gait but balance and stability are improving Exercises Seated Therapy Exercises: Ankle pumps, Sit to stand, Long arc quads, Hip flexion Seated Reps: 12 Assessment Current Status: Good Progress steady improvement noted in all phases PT Short Term Goals Short Term Goals Time Frame: Aug 24, 2018 Gait (FIM): 1 Gait Distance Comment: 25' Gait Level of Assist: 4 Gait Assistive Device: FWW Wheelchair Distance: 100' PT Shelter Goals Metal Cans Supervisor Goals PT Metal Cans Supervisor Goals Time Frame: September 07, 2018 Transfers (B,C,W/C) (FIM): 5 Sit to Lying (QC): 4 Lying-Sitting on Side/Bed(QC): 4 Sit to Stand (QC): 4 Rollin Roll Left to Right (QC): 4 Chair/Quh-bq-Uyzpq Xfer(QC): 4 Car Transfer (QC): 4 Gait (FIM): 2 Distance: 50' Walk 10 feet (QC): 4 Walk 10ft-Uneven Surface(QC): 4 Walk 50ft with 2 Turns (QC): 4 Gait Level of Assist: 5 Gait Assistive Device: FWW Stairs (FIM): 2 # of Steps: 4 1 Step (curb) (QC): 4 4 Steps (QC): 4 Stairs Level Of Assist: 4 PT Plan Treatment/Plan Treatment Plan: Continue Plan of Care Treatment Plan: Bed Mobility, Education, Functional Activity [place], Functional Strength, Group Therapy, Gait, Safety, Therapeutic Exercise, Transfers Treatment Duration: September 07, 2018 Frequency: At least 5 of 7 days/Wk (IRF) Estimated Hrs Per Day: 1.5 hours per day Patient and/or Family Agrees t: Yes Safety Risks/Education Patient Education: Gait Training, Transfer Techniques, Correct Positioning, Disease Process, Safety Issues Teaching Recipient: Patient Teaching Methods: Demonstration, Discussion Response to Teaching: Verbalize Understanding, Return Demonstration, Reinforcement Needed Time/GCodes Time In: 1445 Time Out: 1515 Total Billed Treatment Time: 30 Total Billed Treatment 1,GT20m,EX10m G Codes Necessary: AVA Hammonds EVP OPERATIONS Aug 23, 2018 15:08
[2018-08-23] MEDS: SIMETHICONE 80 MG (MYLICON) CHEW PO PRN (17:02)
[2018-08-23 18:51] VITALS: BP 128/42
[2018-08-23] MEDS: HYDROcodone/APAP 5 MG/325 MG (LORTAB) TAB PO PRN (20:52)
[2018-08-24] MEDS: HYDROcodone/APAP 5 MG/325 MG (LORTAB) TAB PO PRN ×2 (03:03→06:56)
[2018-08-24] MEDS: GLIMEPIRIDE 2 MG (AMARYL) TAB PO SCH (06:14)
[2018-08-24] MEDS: metFORMIN 500 MG (GLUCOPHAGE) TAB PO SCH (06:14)
[2018-08-24] MEDS: meTOprolol TARTRATE 50 MG (LOPRESSOR) TAB PO SCH (06:14)
[2018-08-24] MEDS: inSUlin ASPART (NovoLOG) 1 UNIT/0.01 ML (CHARGE PER UNIT) SC SCH ×3 (06:21→18:04)
[2018-08-24 06:22] VITALS: BP 138/66
--- NOTE | 2018-08-24 08:59 | PM&R Progress Note ---
Subjective HPI/CC On Admission Date Seen by Provider: Aug 24, 2018 Time Seen by Provider: 08:30 Chief Complaint: Left femur fracture HPI: This is an 83[address] of [address] 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 She did have blood loss, anemia, and was placed on oral iron at that time at [facility]. She had no significant decompensation at [facility], kidney function remained normal, and all home meds were restarted when she arrived at inpatient rehab. Bowel function has remained normal to loose since laxatives had been given post-operatively. She at this current time reports that her leg feels much better with pain medication and she is already participating in therapy although she only arrived last night at 9 PM after an eight hour wait for transportation. I did talk to her about her Hgb of 7.3, Venofer will be ordered and iron will be discontinued due to constipation and bloating complaints. Overall she was independent prior level of functioning and she will work towards returning back to independent living at time of discharge. Subjective/Events-last exam Blood sugar was 95 this morning. Increased pain in the legs and shoulders and everywhere. Had a BM this morning but has some abdominal pain that has worsened. RN called me shortly after regarding the increased abdominal pain so I ordered a KUB consulted Dr. Johnson who I conferred with, initiated IV fluids of normal saline at 90 CCs per hour and placed her NPO and ordered a KUB so will do an extensive workup today for the abdominal pain. Overall had been doing very well. Blood sugars are much improved and no hypoglycemia. After rounds results revealed free air on CT scan and patient was sent to OR and found to have duodenal ulcer perforation and required repair and moved to med-surg Review of Systems Gastrointestinal: Abdominal Pain Objective Exam Vital Signs Vital Signs Date Time Temp Pulse Resp B/P (MAP) Pulse Ox O2 Delivery O2 Flow Rate FiO2 08/24/18 09:00 Room Air 08/24/18 06:22 98.8 97 18 138/66 (90) 97 Capillary Refill : Less Than 3 Seconds General Appearance: No Apparent Distress, WD/WN, Chronically ill HEENT: PERRL/EOMI, Normal ENT Inspection, Pharynx Normal, Moist Mucous Membranes Neck: Full Range of Motion, Normal Inspection, Non Tender, Supple Respiratory: Chest Non Tender, Lungs Clear, Normal Breath Sounds, No Accessory Muscle Use, No Respiratory Distress Cardiovascular: Regular Rate, Rhythm, No Edema, No Gallop, No JVD, No Murmur Gastrointestinal: Normal Bowel Sounds, No Organomegaly, No Pulsatile Mass, Soft , Tenderness (mild) Back: Normal Inspection, No CVA Tenderness, No Vertebral Tenderness Extremity: Normal Capillary Refill, Normal Inspection, Normal Range of Motion, Non Tender, No Calf Tenderness, No Pedal Edema Neurologic/Psychiatric: Alert, Oriented x3, No Motor/Sensory Deficits, Normal Mood/Affect, Abnormal Gait Skin: Normal Color, Warm/Dry Lymphatic: No Adenopathy Results/Procedures Lab Laboratory Tests 08/24/18 10:20 Patient resulted labs reviewed. FIM Transfers Therapy Code Descriptions/Definitions Functional [place] Measure: 0=Not Assessed/NA 4=Minimal Assistance 1=Total Assistance 5=Supervision or Setup 2=Maximal Assistance 6=Modified [place] 3=Moderate Assistance 7=Complete [place] Therapy Quality Codes: 6 Independent with activity with or without an assistive device 5 Patient requires set up or clean up by helper. Patient completes activity by themselves 4 Supervision or touching assist (CGA). [place] provide cues , steadying assist 3 The helper provides less than half the effort to complete the activity 2 The helper provides more than half the effort to complete the activity 1 Dependent. The helper does all the effort to complete an activity 7 Patient refused to complete or attempt activity 9 The patient did not perform the activity before the current illness or injury 88 Not attempted due to Medical conditions or safety concerns Mental Status/Objective Comprehension: 7 Expression: 7 Social Interaction: 7 Problem Solvin Memory: 7 ADL-Treatment Feedin (by report) Eating (QC): 6 Groomin (Sitting at sink, pt able to complete by sink.) Oral Hygiene (QC): 6 Bathin (Sponge bath completed. Pt declined washing lower legs/feet. Sitting at sink, pt able to complete all seated areas by self. CGA in standing while pt cleanses buttocks/jon area. Pt does have difficulty with reaching buttocks at this time, but is able to complete with time.) Bathing Location: L Arm, R Arm, L Upper Leg, R Upper Leg, L Lower Leg ( including foot), R Lower Leg (including foot), Chest, Abdomen, Buttocks, Perineal Area Shower/Bathe Self (QC): 4 Upper Extremity Dressin (After set up, pt able to complete by self.) Upper Body Dressing (QC): 5 Lower Extremity Dressin (SBA in standing when manipulating clothing. Using AE to complete lower body dressing by self.) Lower Body Dressing (QC): 4 On/Off Footwear (QC): 4 Toiletin (CGA in standing to manipulate clothing and to cleanse buttocks. Toilet tongs given to try due to pt's difficulty with reaching buttocks to cleanse.) Toileting Hygiene (QC): 4 Toilet/Commode Transfer: 4 (CGA for safety using FWW and grabbars.) Toilet Transfer (QC): 4 Shower: 4 (Min A using FWW, shower bench and grabbars.) Assessment/Plan Assessment and Plan Assess & Plan/Chief Complaint Assessment: Acute abdominal pain with free air on CT scan taken to surgery emergently and found to have perforated duodenal ulcer Left hip fracture s/p uncomplicated repair DM HTN Acute blood loss anemia Severe iron deficiency placed on iron infusions Gout Loose stools Low albumin Hypoglycemia refractory due to OHA long-acting requiring D10 drip now DC Plan: OR emergently and sent to med-surg s/p DM management with insulin but holding and adding IVF D10 at 60cc/hr due to hypoglycemia refractory due to OHA with anemia Pain control Monitor bowels Fall prevention education Home meds Iron infusions Restarted OHA low dose yesterday at 1/2 home dose Hold Levemir (1) Duodenal ulcer perforation (2) Femur fracture, left (3) Diabetes mellitus (4) Hypertension (5) Gout (6) Acute blood loss anemia (7) Iron deficiency (8) Loose stools (9) Serum albumin decreased (10) Hypoglycemia TOBY DELONG DO Aug 24, 2018 08:58
[2018-08-24] MEDS: RIVAROXABAN 10 MG TABLET (XARELTO) PO SCH (09:00)
[2018-08-24] MEDS: ASPIRIN E.C. 81 MG (ECOTRIN) TAB PO SCH (09:00)
[2018-08-24] MEDS: DOCUSATE SODIUM 100 MG (COLACE) CAP PO SCH (09:00)
[2018-08-24] MEDS: amLODIPine 5 MG (NORVASC) TAB PO SCH (09:00)
[2018-08-24] MEDS: lisINopril 20 MG (PRINIVIL) TABLET PO SCH (09:00)
[2018-08-24] MEDS: ALLOPURINOL 100 MG (ZYLOPRIM) TAB PO SCH (09:00)
[2018-08-24] MEDS ORDERED: NS IV 1000 ML 1,000 ML IV SCH (09:45)
[2018-08-24] MEDS ORDERED: NS IV 1000 ML 1,000 ML ONE (09:46)
[2018-08-24 10:28] LABS: BASOPHILS % (AUTO) 0 % (0-10); EOSINOPHILS # (AUTO) 0.1 10^3/uL (0.0-0.3); EOSINOPHILS % (AUTO) 0 % (0-10); HEMATOCRIT 33 % (35-52); LYMPHOCYTES # (AUTO) 1.1 X 10^3 (1.0-4.0); LYMPHOCYTES % (AUTO) 7 % (12-44); MEAN CORPUSCULAR HEMOGLOBIN 30 PG (25-34); MEAN CORPUSCULAR HGB CONC 31 G/DL (32-36); MEAN CORPUSCULAR VOLUME 96 FL (80-99); MEAN PLATELET VOLUME 9.5 FL (7.4-10.4); MONOCYTES % (AUTO) 6 % (0-12); NEUTROPHILS % (AUTO) 87 % (42-75); PLATELET COUNT 390 10^3/uL (130-400); RED CELL DISTRIBUTION WIDTH 20.9 % (10.0-14.5); WHITE BLOOD COUNT 16.2 10^3/uL (4.3-11.0)
--- NOTE | 2018-08-24 10:32 | Occupational Ther Daily Note ---
OT Current Status-Daily Note Subjective Pt sitting in recliner. C/o pain in abdomen, specifically R side. Nrsg notified which notified physician. Mental Status/Objective Patient Orientation: Person, Place, Time, Situation Therapy Code Descriptions/Definitions Functional [place] Measure: 0=Not Assessed/NA 4=Minimal Assistance 1=Total Assistance 5=Supervision or Setup 2=Maximal Assistance 6=Modified [place] 3=Moderate Assistance 7=Complete [place] Attachments: IV ADL-Treatment CGA for sit <--> stand using FWW. CGA SPT to/from w/c <--> recliner. Pt in increased pain in supine, prefers sitting. Lower body dressing and bathing completed on BSC. Pt able to assist with dressing though with increased pain decreased assistance from yesterday. Mod A with toileting to manipulate clothing and cleanse buttocks. Assist with donning/doffing briefs and socks. X -ray tech came to get pt for stat x-ray, assisted pt to w/c. After therapy, pt in care of x-ray techs. All needs met. Therapy Code Descriptions/Definitions Functional [place] Measure: 0=Not Assessed/NA 4=Minimal Assistance 1=Total Assistance 5=Supervision or Setup 2=Maximal Assistance 6=Modified [place] 3=Moderate Assistance 7=Complete [place] Therapy Quality Codes: 6 Independent with activity with or without an assistive device 5 Patient requires set up or clean up by helper. Patient completes activity by themselves 4 Supervision or touching assist (CGA). [place] provide cues , steadying assist 3 The helper provides less than half the effort to complete the activity 2 The helper provides more than half the effort to complete the activity 1 Dependent. The helper does all the effort to complete an activity 7 Patient refused to complete or attempt activity 9 The patient did not perform the activity before the current illness or injury 88 Not attempted due to Medical conditions or safety concerns OT Short Term Goals Short Term Goals Time Frame: Aug 24, 2018 Bathing(FIM): 4 Lower Body Dressing(FIM): 4 Toileting(FIM): 4 Shower Transfer(FIM): 4 Additional Short Term Goals: 1-Demonstrate ADL Tasks, 2-Verbalize Understanding , 3-ImproveStrength/[place] 1=Demonstrate adherence to instructed precautions during ADL tasks. 2=Patient will verbalize/demonstrate understanding of assistive devices/ modifications for ADL. 3=Patient will improve strength/tolerance for activity to enable patient to perform ADL's. OT Ticket Puller Goals Retirement Goals Time Frame: September 07, 2018 Eating (FIM): 7 Eating (QC): 6 Groomin Oral Hygiene (QC): 6 Bathing(FIM): 5 Shower/Bathe Self (QC): 5 Upper Body Dressing(FIM): 6 Upper Body Dressing (QC): 6 Lower Body Dressing(FIM): 6 Lower Body Dressing (QC): 6 On/Off Footwear (QC): 6 Toileting(FIM): 6 Toileting Hygiene (QC): 6 Toilet/Commode Transfer(FIM): 6 Toilet/Commode Transfer (QC): 6 Shower Transfer(FIM): 5 Additional Goals: 1-Demonstrate ADL Tasks, 2-Verbalize Understanding, 3- ImproveStrength/[place] 1=Demonstrate adherence to instructed precautions during ADL tasks. 2=Patient will verbalize/demonstrate understanding of assistive devices/ modifications for ADL. 3=Patient will improve strength/tolerance for activity to enable patient to perform ADL's. OT Education/Plan Discharge Recommendations Plan/Recommendations: Continue POC Treatment Plan/Plan of Care Patient would benefit from OT for education, treatment and training to promote independence in ADL's, mobility, safety and/or upper extremity function for ADL' s. Plan of Care: ADL Retraining, Functional Mobility, Group Exercise/Act as Ind, UE Funct Exercise/Act Treatment Duration: September 07, 2018 Frequency: At least 5 of 7 days/Wk (IRF) Estimated Hrs Per Day: 1.5 hours per day Rehab Potential: Good Time/GCodes Start Time: 09:30 Stop Time: 10:05 Total Time Billed (hr/min): 35 Billed Treatment Time 1 visit-ADL 2 (35 min) COSMO FOUNTAIN Aug 24, 2018 10:32
[2018-08-24 10:50] LABS: ALBUMIN 3.2 GM/DL (3.2-4.5); BILIRUBIN,TOTAL 0.9 MG/DL (0.1-1.0); CALCIUM 9.5 MG/DL (8.5-10.1); CREATININE SERUM 1.15 MG/DL (0.60-1.30); POTASSIUM 4.9 MMOL/L (3.6-5.0)
[2018-08-24 10:54] LABS: NEUTROPHILS % (MANUAL) 88 %
[2018-08-24 10:55] LABS: ANISOCYTOSIS MARKED; BAND NEUTROPHILS 5 %; BASOPHILS % (MANUAL) 0 %; EOSINOPHILS % (MANUAL) 0 %; HYPOCHROMASIA SLIGHT; LYMPHOCYTES % (MANUAL) 5 %; MONOCYTES % (MANUAL) 1 %; PLATELET CLUMPS SLIGHT; POIKILOCYTOSIS MODERATE; REACTIVE LYMPHOCYTES 1 %
[2018-08-24 10:56] LABS: ACANTHOCYTES SLIGHT; ELLIPT/OVALOCYTES SLIGHT; STOMATOCYTES SLIGHT
--- NOTE | 2018-08-24 10:59 | Occ Therapy Progress Note ---
Therapy Progress Note Due to severe abdominal pain unable to see pt. Physician order to hold therapies today. COSMO FOUNTAIN Aug 24, 2018 10:59
--- NOTE | 2018-08-24 11:10 | Diagnostic Imaging Report ---
INDICATION: Abdominal pain COMPARISON: None available TECHNIQUE: 3 radiographs of the abdomen dated 08/24/2018 FINDINGS: Questionable 0.9 cm nodular density is seen overlying the lateral left lung base. Multiple rounded calcific densities are identified overlying the right upper quadrant of the abdomen, favored to relate to gallstones. Gas and stool is identified throughout the colon, including extending into the pelvis. There is a generalized paucity of small bowel gas. No differential air-fluid levels. No free air. No suspicious calcifications overlying the renal shadows. Scattered osseous degenerative changes without acute osseous abnormality. Postsurgical changes associated with the partially visualized left femur. IMPRESSION: Cholelithiasis suspected. A 0.9 cm nodular density overlying the left lung base. Recommend dedicated radiograph of the chest for further evaluation. Nonspecific bowel gas pattern with a generalized paucity of small bowel gas without bowel dilatation. Dictated by: Dictated on workstation # [id number]
[2018-08-24 11:28] LABS: BILIRUBIN,URINE NEGATIVE (NEGATIVE); CLARITY,URINE VERY CLOUDY; COLOR,URINE YELLOW; GLUCOSE, URINE (UA) NEGATIVE (NEGATIVE); KETONES,URINE NEGATIVE (NEGATIVE); LEUKOCYTE ESTERASE ,URINE 2+ (NEGATIVE); NITRITE,URINE NEGATIVE (NEGATIVE); PH,URINE 5 (5-9); PROTEIN,URINE 3+ (NEGATIVE); UROBILINOGEN,URINE NORMAL (NORMAL)
[2018-08-24 11:42] LABS: RBC,URINE RARE /HPF
[2018-08-24 11:43] LABS: BACTERIA,URINE LARGE /HPF; WBC,URINE 50-100 /HPF
--- NOTE | 2018-08-24 12:05 | NUR ---
0935: Patient complaining of abdominal pain early this morning. Patient reports that pain has gotten increasingly worse. Bowel sounds are very hypoactive, abdomen is round, firm, and tender to touch. Patient is unable to find a comfortable position and transferring from chair to wheelchair results in elevated pain. Dr. Santana notified, orders received to start IV fluids at 90 mL/hr, stat KUB, Consult to Dr. Johnson, and labs. Dr. Johnson notified of consult. Orders also received to put patient on medical hold for therapy today. 1135: Call received from Dr. Johnson. Stat CT with Contrast ordered. Radiology department notified.
[2018-08-24] MEDS ORDERED: morphine INJ 4 MG/ML 1 ML (VIAL/SYRINGE) IVP PRN (12:30)
--- NOTE | 2018-08-24 12:44 | Diagnostic Imaging Report ---
PROCEDURE: CT abdomen and pelvis with contrast. TECHNIQUE: Multiple contiguous axial images were obtained through the abdomen and pelvis after administration of intravenous contrast. Auto Exposure Controls were utilized during the CT exam to meet ALARA standards for radiation dose reduction. INDICATION: Right flank pain. COMPARISON: No prior examinations are available for comparison. FINDINGS: There is a right base consolidation and right pleural effusion. The liver is normal in size. There is a benign hepatic cyst. There are innumerable stones in the gallbladder. There also appears to be some gallbladder wall thickening and pericholecystic fluid. There is free intraperitoneal air as well as a small amount of ascites. There is pneumobilia. The spleen is normal. The pancreas and adrenal glands are unremarkable. There are multiple cysts in the left kidney. The aorta is nonaneurysmal. Bowel gas pattern is otherwise nonspecific. There appears to be mild diverticular disease without evidence of diverticulitis. There is pelvic free fluid. There is no pelvic mass or adenopathy. There are degenerative changes in the spine. IMPRESSION: Free air and free fluid suspect for perforated viscus. Cholelithiasis, gallbladder wall thickening, and pericholecystic fluid suspect for acute cholecystitis. Right base consolidation and right pleural effusion. Benign hepatic and left renal cysts. Finding were conveyed directly to Dr. Piyush Johnson's office at 12:30 p.m. Dictated by: Dictated on workstation # [id number]
--- NOTE | 2018-08-24 13:14 | NUR ---
Due to new development of bowel perforation, Dr. Johnson will perform surgery on patient today at 230 p.m. ELECTRON TUBE ASSEMBLER updated patient Workmen's Comp. case, as ELECTRON TUBE ASSEMBLER was instructed to notify of any acute changes.
[2018-08-24] MEDS ORDERED: LACTATED RINGERS 1,000 ML IV PRN (13:18)
--- NOTE | 2018-08-24 13:18 | Physical Therapy Daily Note ---
PT Daily Note-Current Subjective Pt. moaning in pain, no Rx this date per nurse advising that pt. is in severe pain and possibly having ileus Transfers Therapy Code Descriptions/Definitions Functional [place] Measure: 0=Not Assessed/NA 4=Minimal Assistance 1=Total Assistance 5=Supervision or Setup 2=Maximal Assistance 6=Modified [place] 3=Moderate Assistance 7=Complete [place] Therapy Quality Codes: 6 Independent with activity with or without an assistive device 5 Patient requires set up or clean up by helper. Patient completes activity by themselves 4 Supervision or touching assist (CGA). [place] provide cues , steadying assist 3 The helper provides less than half the effort to complete the activity 2 The helper provides more than half the effort to complete the activity 1 Dependent. The helper does all the effort to complete an activity 7 Patient refused to complete or attempt activity 9 The patient did not perform the activity before the current illness or injury 88 Not attempted due to Medical conditions or safety concerns Weight Bearing Right Lower Extremity: Right Full Weight Bearing Left Lower Extremity: Left Touch Toe Bearing Assessment Current Status: Hold Per Dr/Nursing sever pain, pt. on hold for therapies PT Short Term Goals Short Term Goals Time Frame: Aug 24, 2018 Gait (FIM): 1 Gait Distance Comment: 25' Gait Level of Assist: 4 Gait Assistive Device: FWW Wheelchair Distance: 100' PT Fci Goals Fci Goals PT Fci Goals Time Frame: September 07, 2018 Transfers (B,C,W/C) (FIM): 5 Sit to Lying (QC): 4 Lying-Sitting on Side/Bed(QC): 4 Sit to Stand (QC): 4 Rollin Roll Left to Right (QC): 4 Chair/Dxu-gl-Zoobw Xfer(QC): 4 Car Transfer (QC): 4 Gait (FIM): 2 Distance: 50' Walk 10 feet (QC): 4 Walk 10ft-Uneven Surface(QC): 4 Walk 50ft with 2 Turns (QC): 4 Gait Level of Assist: 5 Gait Assistive Device: FWW Stairs (FIM): 2 # of Steps: 4 1 Step (curb) (QC): 4 4 Steps (QC): 4 Stairs Level Of Assist: 4 PT Plan Treatment/Plan Treatment Plan: Continue Plan of Care Treatment Plan: Bed Mobility, Education, Functional Activity [place], Functional Strength, Group Therapy, Gait, Safety, Therapeutic Exercise, Transfers Treatment Duration: September 07, 2018 Frequency: At least 5 of 7 days/Wk (IRF) Estimated Hrs Per Day: 1.5 hours per day Patient and/or Family Agrees t: Yes Time/GCodes Time In: 1315 Time Out: 1316 Total Billed Treatment Time: 0 Total Billed Treatment 1,no chg, no Rx G Codes Necessary: No AVA LEYVA SOUS CHEF KITCHEN MANAGER Aug 24, 2018 13:18
[2018-08-24] MEDS ORDERED: HYDROmorphone 2 MG/ML VIAL (DILAUDID) ONE (13:20)
[2018-08-24] MEDS: HYDROmorphone 2 MG/ML VIAL (DILAUDID) IV PRN ×2 (13:25→18:00)
[2018-08-24] MEDS ORDERED: proPOfol 200 MG/20 ML (DIPRIVAN) VIAL IV ONE (13:28)
[2018-08-24] MEDS ORDERED: LIDOCAINE PF 2% 5 ML (XYLOCAINE) VIAL ONE (13:28)
[2018-08-24] MEDS ORDERED: ROCURONIUM 10 MG/ML 5 ML SYRINGE IV ONE (13:28)
[2018-08-24] MEDS ORDERED: ONDANSETRON 4 MG/2 ML (SDV) Z0FRAN ONE (13:28)
[2018-08-24] MEDS ORDERED: fentaNYL INJECTION 100 MCG/2 ML AMP ONE ×2 (13:28→15:37)
[2018-08-24] MEDS ORDERED: NEOSTIGMINE 1 MG/ML 5 ML SYRINGE ONE (13:30)
[2018-08-24] MEDS ORDERED: BUPIVACAINE 0.25% 30 ML (SENSORCAINE) VIAL ONE (13:30)
[2018-08-24] MEDS ORDERED: GLYCOPYRROLATE 0.2 MG/ML (ROBINUL) 2 ML VIAL ONE (13:30)
[2018-08-24] MEDS ORDERED: SUCCINYLCHOLINE INJ 100 MG/5 ML SYR ONE (13:32)
--- NOTE | 2018-08-24 13:37 | Consultation (Surgery) ---
History of Present Illness History of Present Illness Patient Consulted On(jacob/time) 08/24/18 13:32 Date Seen by Provider: Aug 24, 2018 Time Seen by Provider: 12:02 History of Present Illness Consult requested by Dr. Santana for abdominal pain. 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 She had surgery at outside facility and transferred her for rehab. Patient today began having severe abdominal pain all over. Sharp in nature. Nothing making better. Movement makes worse. Patient had bowel movement this morning around 3 am she states. No blood. Her only complaint is abdominal pain. She denies n/v fever sweats chills shortness of breath or chest pain. Patient had ct scan demonstrating free air, gallstones , thickened gallbladder, free fluid. She is on Eliquis. She reports taking Aleve for pain as well. Allergies and Home Medications Allergies Coded Allergies: No Known Allergies (Verified Allergy, Unknown, 08/16/18) Home Medications Allopurinol 100 Mg Tablet, 100 MG PO BID, (Reported) Amlodipine Besylate 2.5 Mg Tablet, 2.5 MG PO DAILY, (Reported) Aspirin 81 Mg Tablet.dr, 81 MG PO DAILY, (Reported) Atenolol 25 Mg Tablet, 25 MG PO BID, (Reported) Glimepiride 4 Mg Tablet, 4 MG PO BID, (Reported) Insulin Detemir 100 Unit/1 Ml Insuln.pen, 22 UNIT SQ HS, (Reported) Lisinopril/Hydrochlorothiazide 1 Each Tablet, 1 TAB PO BID, (Reported) Metformin HCl 500 Mg Tablet, 1,000 MG PO BID, (Reported) TAKES 2 (500MG) TABLETS Sitagliptin Phosphate 50 Mg Tablet, 50 MG PO DAILY, (Reported) Patient Home Medication List Home Medication List Reviewed: Yes Past Skukjeu-Ifrdrr-Hqgyvd Hx Patient Social History Alcohol Use: Denies Use Recreational Drug Use: No Smoking Status: Never a Smoker Recent Foreign Travel: No Contact w/Someone Who Travel: No Recent Infectious Disease Expo: No Recent Hopitalizations: No Physical Abuse Screen: No Sexual Abuse: No Immunizations Up To Date Date of Pneumonia Vaccine: Apr 27, 2018 Seasonal Allergies Seasonal Allergies: No Surgeries History of Surgeries: Yes (ORIF left hip) Surgeries: Orthopedic Respiratory History of Respiratory Disorde: No Cardiovascular History of Cardiac Disorders: Yes Cardiac Disorders: High Cholesterol, Hypertension Neurological History of Neurological Disord: No Reproductive System Sexually Transmitted Disease: No HIV/AIDS: No Female Reproductive Disorders: Denies Genitourinary History of Genitourinary Disor: Yes (E Coli in urine) Genitourinary Disorders: Bladder Infection Gastrointestinal History of Gastrointestinal Di: No Musculoskeletal History of Musculoskeletal Dis: Yes (left hip fracture) Musculoskeletal Disorders: Arthritis, Gout Endocrine History of Endocrine Disorders: Yes Endocrine Disorders: Diabetes, Non-Insulin dep HEENT History of HEENT Disorders: Yes HEENT Disorders: Cataract Loss of Vision: Denies Hearing Impairment: Hard of Hearing Cancer History of Cancer: No Psychosocial History of Psychiatric Problem: No Integumentary History of Skin or Integumenta: No Blood Transfusions History of Blood Disorders: No Adverse Reaction to a Blood Tr: No Family Medical History Significant Family History: Hypertension Family Medial History: Hypertension 19 FATHER Review of Systems-General Constitutional: no symptoms reported EENTM: no symptoms reported Respiratory: no symptoms reported Cardiovascular: no symptoms reported Gastrointestinal: see HPI, abdominal pain Genitourinary: no symptoms reported : No Musculoskeletal: no symptoms reported Skin: no symptoms reported Psychiatric/Neurological: No Symptoms Reported Physical Exam-General Problems Physical Exam Vital Signs Vital Signs - First Documented 08/18/18 05:09 Temp 98.6 Pulse 103 Resp 18 B/P (MAP) 131/67 (88) Pulse Ox 96 O2 Delivery Room Air Capillary Refill : Less Than 3 Seconds General Appearance: severe distress HEENT: PERRL/EOMI, normal ENT inspection Neck: supple Respiratory: chest non-tender, no respiratory distress, no accessory muscle use Cardiovascular: regular rate, rhythm Gastrointestinal: tenderness (diffuse and peritoneal) Rectal: deferred Extremities: normal inspection, other (left lower extremity incision covered) 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, no motor/sensory deficits, alert, normal mood/affect, oriented x 3 Skin: normal color, warm/dry Lymphatic: no adenopathy Data Review Labs Laboratory Tests 08/23/18 15:55: Glucometer 221H 08/23/18 20:35: Glucometer 134H 08/24/18 05:31: Glucometer 95 08/24/18 10:20: White Blood Count 16.2H, Red Blood Count 3.38L, Hemoglobin 10.0L, Hematocrit 33L , Mean Corpuscular Volume 96, Mean Corpuscular Hemoglobin 30, Mean Corpuscular Hemoglobin Concent 31L, Red Cell Distribution Width 20.9H, Platelet Count 390, Mean Platelet Volume 9.5, Neutrophils (%) (Auto) 87H, Lymphocytes (%) (Auto) 7L , Monocytes (%) (Auto) 6, Eosinophils (%) (Auto) 0, Basophils (%) (Auto) 0, Neutrophils # (Auto) 14.0H, Lymphocytes # (Auto) 1.1, Monocytes # (Auto) 1.0, Eosinophils # (Auto) 0.1, Basophils # (Auto) 0.0, Neutrophils % (Manual) 88, Lymphocytes % (Manual) 5, Monocytes % (Manual) 1, Eosinophils % (Manual) 0, Basophils % (Manual) 0, Band Neutrophils 5, Reactive Lymphocytes 1, Clumped Platelets SLIGHT, Hypochromasia SLIGHT, Poikilocytosis MODERATE, Anisocytosis MARKED, Stomatocytes SLIGHT, Elliptocytes SLIGHT, Acanthocytes SLIGHT, Sodium Level 139, Potassium Level 4.9, Chloride Level 110H, Carbon Dioxide Level 17L, Anion Gap 12, Blood Urea Nitrogen 18, Creatinine 1.15, Estimat Glomerular Filtration Rate 45, BUN/Creatinine Ratio 16, Glucose Level 199H, Calcium Level 9.5, Corrected Calcium 10.1, Total Bilirubin 0.9, Aspartate Amino Transf (AST/ SGOT) 46H, Alanine Aminotransferase (ALT/SGPT) 57H, Alkaline Phosphatase 169H, Total Protein 6.0L, Albumin 3.2, Amylase Level 47, Lipase 25 08/24/18 11:05: Urine Color YELLOW, Urine Clarity VERY CLOUDYH, Urine pH 5, Urine Specific [place] 1.015L, Urine Protein 3+H, Urine Glucose (UA) NEGATIVE, Urine Ketones NEGATIVE, Urine Nitrite NEGATIVE, Urine Bilirubin NEGATIVE, Urine Urobilinogen NORMAL, Urine Leukocyte Esterase 2+H, Urine RBC (Auto) 2+H, Urine RBC RARE, Urine WBC 50-100H, Urine Squamous Epithelial Cells 10-25H, Urine Renal Epithelial Cells NONE, Urine Crystals NONE, Urine Bacteria LARGEH, Urine Casts NONE, Urine Mucus NEGATIVE, Urine Culture Indicated YES, Glucometer 201H Assessment/Plan Assessment/Plan Assessment/Plan pneumoperitoneum secondary to perforated hollow viscus cholelithiasis s/p left orif DM HTN Discussed risks and benefits of exploratory laparotomy all other indicated procedures Patient understands risks and benefits and wishes to proceed. To OR for for exploration [facility] Clinical Quality Measures DVT/VTE Risk/Contraindication: Risk Factor Score Per Nursin RFS Level Per Nursing on Admit: 4+=Very High NICOLE STEVENS DO Aug 24, 2018 13:37
--- NOTE | 2018-08-24 13:40 | NUR ---
Patient taken to Surgery.
[2018-08-24] MEDS ORDERED: PIPERACILLIN/TAZO 4.5 GM/NS 100 ML IV NR ×2 (14:00)
[2018-08-24] MEDS ORDERED: SEVOFLURANE (ULTANE) 15 ML INHAL SOLN ONE ×2 (14:54→15:41)
--- NOTE | 2018-08-24 14:57 | NUR ---
I encountered pts daughters in lobby, tearful and concerned for pt in surgery, I listened and had prayer with them.
[2018-08-24] MEDS ORDERED: morphine INJ 4 MG/ML 1 ML (VIAL/SYRINGE) IVP STA (18:06)
[2018-08-24] MEDS ORDERED: PIPERACILLIN/TAZOBACTAM (BULK) 4.5 GM in NS (IVPB) 100 ML IV SCH (20:00)
[2018-08-24] MEDS ORDERED: PANTOPRAZOLE 40 MG (PROTONIX) VIAL IV SCH (21:00)
[2018-08-25] MEDS ORDERED: FLUCONAZOLE 200 MG/100 ML 100 ML IV SCH (09:00)
--- NOTE | 2018-08-25 18:00 | NUR ---
CASE OPERATOR reached out to patient's Workman's Comp CM to inquire about billing for yesterdays surgery, as this procedure is unrelated to hip fracture. [employer] CM[employer]itta intends to reach out for guidance regarding this inquiry. CASE OPERATOR will await a response, as this information is pertinent to protocol for patient returning to ARU.
--- NOTE | 2018-08-26 08:29 | Discharge Summary ---
Diagnosis/Chief Complaint Date of Admission Aug 16, 2018 at 20:40 Date of Discharge Discharge Diagnosis Assessment: Acute abdominal pain with free air on CT scan taken to surgery emergently and found to have perforated duodenal ulcer Left hip fracture s/p uncomplicated repair DM HTN Acute blood loss anemia Severe iron deficiency placed on iron infusions Gout Loose stools Low albumin Hypoglycemia refractory due to OHA long-acting requiring D10 drip now DC Plan: OR emergently and sent to med-surg s/p DM management with insulin but holding and adding IVF D10 at 60cc/hr due to hypoglycemia refractory due to OHA with anemia Pain control Monitor bowels Fall prevention education Home meds Iron infusions Restarted OHA low dose yesterday at 1/2 home dose Hold Levemir (1) Duodenal ulcer perforation (2) Femur fracture, left (3) Diabetes mellitus (4) Hypertension (5) Gout (6) Acute blood loss anemia (7) Iron deficiency (8) Loose stools (9) Serum albumin decreased (10) Hypoglycemia Discharge Summary Discharge Physical Examination Allergies: Coded Allergies: No Known Allergies (Verified Allergy, Unknown, 08/16/18) Vitals & I&Os Vital Signs Date Time Temp Pulse Resp B/P (MAP) Pulse Ox O2 Delivery O2 Flow Rate FiO2 08/24/18 09:00 Room Air 08/24/18 06:22 98.8 97 18 138/66 (90) 97 Hospital Course Was the Problem List Reviewed?: Yes Hospital course: Patient had an uneventful early 7 day hospital course in inpatient rehabilitation to rehabilitate after hip fracture. Hypoglycemia was due to severe anemia and continued use of oral hypoglycemic agents which required D10 with good results and she was scaled back on her home dosing with good results. Iron infusions were tolerated and maintained while hospitalized in inpatient rehabilitation. Patient participated in all therapies and was doing well until day of transfer to acute care for due to severe abdominal pain which ultimately revealed a perforated duodenal ulcer on emergent exploratory laparoscopy. Labs (last 24 hrs) Laboratory Tests 08/16/18 21:06: Glucometer 149H 08/17/18 04:45: White Blood Count 4.8, Red Blood Count 2.54L, Hemoglobin 7.3L, Hematocrit 23L, Mean Corpuscular Volume 92, Mean Corpuscular Hemoglobin 29, Mean Corpuscular Hemoglobin Concent 31L, Red Cell Distribution Width 18.6H, Platelet Count 233, Mean Platelet Volume 8.9, Neutrophils (%) (Auto) 61, Lymphocytes (%) (Auto) 24, Monocytes (%) (Auto) 12, Eosinophils (%) (Auto) 2, Basophils (%) (Auto) 0, Neutrophils # (Auto) 2.9, Lymphocytes # (Auto) 1.2, Monocytes # (Auto) 0.6, Eosinophils # (Auto) 0.1, Basophils # (Auto) 0.0, Sodium Level 143, Potassium Level 4.1, Chloride Level 112H, Carbon Dioxide Level 23, Anion Gap 8, Blood Urea Nitrogen 17, Creatinine 0.82, Estimat Glomerular Filtration Rate > 60, BUN/ Creatinine Ratio 21, Glucose Level 76, Calcium Level 8.6, Corrected Calcium 9.7 , Iron Level 21L, Total Bilirubin 0.6, Aspartate Amino Transf (AST/SGOT) 33, Alanine Aminotransferase (ALT/SGPT) 28, Alkaline Phosphatase 77, Total Protein 4.9L, Albumin 2.6L 08/17/18 10:56: Glucometer 97 08/17/18 16:09: Glucometer 100 08/17/18 20:24: Glucometer 140H 08/18/18 06:12: Glucometer 62L 08/18/18 11:07: Glucometer 59*L 08/18/18 11:25: Glucometer 65L 08/18/18 12:18: Glucometer 74 08/18/18 16:01: Glucometer 53*L 08/18/18 17:36: Glucometer 142H 08/18/18 20:52: Glucometer 216H 08/18/18 23:39: Glucometer 160H 08/19/18 06:09: Glucometer 170H 08/19/18 10:57: Glucometer 212H 08/19/18 14:14: Glucometer 253H 08/19/18 15:38: Glucometer 252H 08/19/18 20:07: Glucometer 190H 08/20/18 05:11: Glucometer 135H 08/20/18 10:51: Glucometer 276H 08/20/18 15:56: Glucometer 242H 08/20/18 20:40: Glucometer 178H 08/21/18 05:08: Glucometer 102 08/21/18 11:08: Glucometer 122H 08/21/18 16:05: Glucometer 167H 08/21/18 20:17: Glucometer 153H 08/22/18 05:28: Glucometer 116H 08/22/18 11:08: Glucometer 187H 08/22/18 15:21: Glucometer 126H 08/22/18 20:11: Glucometer 142H 08/23/18 04:40: White Blood Count 6.9, Red Blood Count 3.78L, Hemoglobin 11.4#L, Hematocrit 36, Mean Corpuscular Volume 94, Mean Corpuscular Hemoglobin 30, Mean Corpuscular Hemoglobin Concent 32, Red Cell Distribution Width 13.8, Platelet Count 277, Mean Platelet Volume 11.9H, Neutrophils (%) (Auto) 70, Lymphocytes (%) (Auto) 15 , Monocytes (%) (Auto) 12, Eosinophils (%) (Auto) 3, Basophils (%) (Auto) 1, Neutrophils # (Auto) 4.9, Lymphocytes # (Auto) 1.0, Monocytes # (Auto) 0.8, Eosinophils # (Auto) 0.2, Basophils # (Auto) 0.1, Sodium Level 140, Potassium Level 4.3, Chloride Level 109H, Carbon Dioxide Level 21, Anion Gap 10, Blood Urea Nitrogen 21H, Creatinine 0.61, Estimat Glomerular Filtration Rate > 60, BUN /Creatinine Ratio 34, Glucose Level 98, Calcium Level 8.7, Corrected Calcium 9.1 , Total Bilirubin 0.2, Aspartate Amino Transf (AST/SGOT) 19, Alanine Aminotransferase (ALT/SGPT) 16, Alkaline Phosphatase 191H, Total Protein 5.6L, Albumin 3.5 08/23/18 05:00: Glucometer 111H 08/23/18 10:56: Glucometer 157H 08/23/18 15:55: Glucometer 221H 08/23/18 20:35: Glucometer 134H 08/24/18 05:31: Glucometer 95 08/24/18 10:20: White Blood Count 16.2H, Red Blood Count 3.38L, Hemoglobin 10.0L, Hematocrit 33L , Mean Corpuscular Volume 96, Mean Corpuscular Hemoglobin 30, Mean Corpuscular Hemoglobin Concent 31L, Red Cell Distribution Width 20.9H, Platelet Count 390, Mean Platelet Volume 9.5, Neutrophils (%) (Auto) 87H, Lymphocytes (%) (Auto) 7L , Monocytes (%) (Auto) 6, Eosinophils (%) (Auto) 0, Basophils (%) (Auto) 0, Neutrophils # (Auto) 14.0H, Lymphocytes # (Auto) 1.1, Monocytes # (Auto) 1.0, Eosinophils # (Auto) 0.1, Basophils # (Auto) 0.0, Neutrophils % (Manual) 88, Lymphocytes % (Manual) 5, Monocytes % (Manual) 1, Eosinophils % (Manual) 0, Basophils % (Manual) 0, Band Neutrophils 5, Reactive Lymphocytes 1, Clumped Platelets SLIGHT, Hypochromasia SLIGHT, Poikilocytosis MODERATE, Anisocytosis MARKED, Stomatocytes SLIGHT, Elliptocytes SLIGHT, Acanthocytes SLIGHT, Sodium Level 139, Potassium Level 4.9, Chloride Level 110H, Carbon Dioxide Level 17L, Anion Gap 12, Blood Urea Nitrogen 18, Creatinine 1.15, Estimat Glomerular Filtration Rate 45, BUN/Creatinine Ratio 16, Glucose Level 199H, Calcium Level 9.5, Corrected Calcium 10.1, Total Bilirubin 0.9, Aspartate Amino Transf (AST/ SGOT) 46H, Alanine Aminotransferase (ALT/SGPT) 57H, Alkaline Phosphatase 169H, Total Protein 6.0L, Albumin 3.2, Amylase Level 47, Lipase 25 08/24/18 11:05: Urine Color YELLOW, Urine Clarity VERY CLOUDYH, Urine pH 5, Urine Specific [place] 1.015L, Urine Protein 3+H, Urine Glucose (UA) NEGATIVE, Urine Ketones NEGATIVE, Urine Nitrite NEGATIVE, Urine Bilirubin NEGATIVE, Urine Urobilinogen NORMAL, Urine Leukocyte Esterase 2+H, Urine RBC (Auto) 2+H, Urine RBC RARE, Urine WBC 50-100H, Urine Squamous Epithelial Cells 10-25H, Urine Renal Epithelial Cells NONE, Urine Crystals NONE, Urine Bacteria LARGEH, Urine Casts NONE, Urine Mucus NEGATIVE, Urine Culture Indicated YES, Glucometer 201H Microbiology 08/24/18 Urine Culture - Final, Complete Escherichia coli Pending Labs Microbiology Date/Time Source Procedure Growth Status 08/24/18 11:05 Urine Voided Urine Urine Culture - Final Escherichia coli Complete Laboratory Tests 08/16/18 21:06: Glucometer 149 08/17/18 04:45: White Blood Count 4.8, Red Blood Count 2.54, Hemoglobin 7.3, Hematocrit 23, Mean Corpuscular Volume 92, Mean Corpuscular Hemoglobin 29, Mean Corpuscular Hemoglobin Concent 31, Red Cell Distribution Width 18.6, Platelet Count 233, Mean Platelet Volume 8.9, Neutrophils (%) (Auto) 61, Lymphocytes (%) (Auto) 24, Monocytes (%) (Auto) 12, Eosinophils (%) (Auto) 2, Basophils (%) (Auto) 0, Neutrophils # (Auto) 2.9, Lymphocytes # (Auto) 1.2, Monocytes # (Auto) 0.6, Eosinophils # (Auto) 0.1, Basophils # (Auto) 0.0, Sodium Level 143, Potassium Level 4.1, Chloride Level 112, Carbon Dioxide Level 23, Anion Gap 8, Blood Urea Nitrogen 17, Creatinine 0.82, Estimat Glomerular Filtration Rate > 60, BUN/ Creatinine Ratio 21, Glucose Level 76, Calcium Level 8.6, Corrected Calcium 9.7 , Iron Level 21, Total Bilirubin 0.6, Aspartate Amino Transf (AST/SGOT) 33, Alanine Aminotransferase (ALT/SGPT) 28, Alkaline Phosphatase 77, Total Protein 4.9, Albumin 2.6 08/17/18 10:56: Glucometer 97 08/17/18 16:09: Glucometer 100 08/17/18 20:24: Glucometer 140 08/18/18 06:12: Glucometer 62 08/18/18 11:07: Glucometer 59 08/18/18 11:25: Glucometer 65 08/18/18 12:18: Glucometer 74 08/18/18 16:01: Glucometer 53 08/18/18 17:36: Glucometer 142 08/18/18 20:52: Glucometer 216 08/18/18 23:39: Glucometer 160 08/19/18 06:09: Glucometer 170 08/19/18 10:57: Glucometer 212 08/19/18 14:14: Glucometer 253 08/19/18 15:38: Glucometer 252 08/19/18 20:07: Glucometer 190 08/20/18 05:11: Glucometer 135 08/20/18 10:51: Glucometer 276 08/20/18 15:56: Glucometer 242 08/20/18 20:40: Glucometer 178 08/21/18 05:08: Glucometer 102 08/21/18 11:08: Glucometer 122 08/21/18 16:05: Glucometer 167 08/21/18 20:17: Glucometer 153 08/22/18 05:28: Glucometer 116 08/22/18 11:08: Glucometer 187 08/22/18 15:21: Glucometer 126 08/22/18 20:11: Glucometer 142 08/23/18 04:40: White Blood Count 6.9, Red Blood Count 3.78, Hemoglobin 11.4, Hematocrit 36, Mean Corpuscular Volume 94, Mean Corpuscular Hemoglobin 30, Mean Corpuscular Hemoglobin Concent 32, Red Cell Distribution Width 13.8, Platelet Count 277, Mean Platelet Volume 11.9, Neutrophils (%) (Auto) 70, Lymphocytes (%) (Auto) 15 , Monocytes (%) (Auto) 12, Eosinophils (%) (Auto) 3, Basophils (%) (Auto) 1, Neutrophils # (Auto) 4.9, Lymphocytes # (Auto) 1.0, Monocytes # (Auto) 0.8, Eosinophils # (Auto) 0.2, Basophils # (Auto) 0.1, Sodium Level 140, Potassium Level 4.3, Chloride Level 109, Carbon Dioxide Level 21, Anion Gap 10, Blood Urea Nitrogen 21, Creatinine 0.61, Estimat Glomerular Filtration Rate > 60, BUN/ Creatinine Ratio 34, Glucose Level 98, Calcium Level 8.7, Corrected Calcium 9.1 , Total Bilirubin 0.2, Aspartate Amino Transf (AST/SGOT) 19, Alanine Aminotransferase (ALT/SGPT) 16, Alkaline Phosphatase 191, Total Protein 5.6, Albumin 3.5 08/23/18 05:00: Glucometer 111 08/23/18 10:56: Glucometer 157 08/23/18 15:55: Glucometer 221 08/23/18 20:35: Glucometer 134 08/24/18 05:31: Glucometer 95 08/24/18 10:20: White Blood Count 16.2, Red Blood Count 3.38, Hemoglobin 10.0, Hematocrit 33, Mean Corpuscular Volume 96, Mean Corpuscular Hemoglobin 30, Mean Corpuscular Hemoglobin Concent 31, Red Cell Distribution Width 20.9, Platelet Count 390, Mean Platelet Volume 9.5, Neutrophils (%) (Auto) 87, Lymphocytes (%) (Auto) 7, Monocytes (%) (Auto) 6, Eosinophils (%) (Auto) 0, Basophils (%) (Auto) 0, Neutrophils # (Auto) 14.0, Lymphocytes # (Auto) 1.1, Monocytes # (Auto) 1.0, Eosinophils # (Auto) 0.1, Basophils # (Auto) 0.0, Neutrophils % (Manual) 88, Lymphocytes % (Manual) 5, Monocytes % (Manual) 1, Eosinophils % (Manual) 0, Basophils % (Manual) 0, Band Neutrophils 5, Reactive Lymphocytes 1, Clumped Platelets SLIGHT, Hypochromasia SLIGHT, Poikilocytosis MODERATE, Anisocytosis MARKED, Stomatocytes SLIGHT, Elliptocytes SLIGHT, Acanthocytes SLIGHT, Sodium Level 139, Potassium Level 4.9, Chloride Level 110, Carbon Dioxide Level 17, Anion Gap 12, Blood Urea Nitrogen 18, Creatinine 1.15, Estimat Glomerular Filtration Rate 45, BUN/Creatinine Ratio 16, Glucose Level 199, Calcium Level 9.5, Corrected Calcium 10.1, Total Bilirubin 0.9, Aspartate Amino Transf (AST/ SGOT) 46, Alanine Aminotransferase (ALT/SGPT) 57, Alkaline Phosphatase 169, Total Protein 6.0, Albumin 3.2, Amylase Level 47, Lipase 25 08/24/18 11:05: Urine Color YELLOW, Urine Clarity VERY CLOUDY, Urine pH 5, Urine Specific [place]abb 1.015, Urine Protein 3+, Urine Glucose (UA) NEGATIVE, Urine Ketones NEGATIVE, Urine Nitrite NEGATIVE, Urine Bilirubin NEGATIVE, Urine Urobilinogen NORMAL, Urine Leukocyte Esterase 2+, Urine RBC (Auto) 2+, Urine RBC RARE, Urine WBC 50-100, Urine Squamous Epithelial Cells 10-25, Urine Renal Epithelial Cells NONE, Urine Crystals NONE, Urine Bacteria LARGE, Urine Casts NONE, Urine Mucus NEGATIVE, Urine Culture Indicated YES, Glucometer 201 Discharge Home Medications: Active Scripts Active Reported Lisinopril-Hctz 20-12.5 mg Tab (Lisinopril/Hydrochlorothiazide) 1 Each Tablet 1 Tab PO BID Januvia (Sitagliptin Phosphate) 50 Mg Tablet 50 Mg PO DAILY Atenolol 25 Mg Tablet 25 Mg PO BID Levemir Flextouch (Insulin Detemir) 100 Unit/1 Ml Insuln.pen 22 Unit SQ HS Glimepiride 4 Mg Tablet 4 Mg PO BID Amlodipine Besylate 2.5 Mg Tablet 2.5 Mg PO DAILY Metformin HCl 500 Mg Tablet 1,000 Mg PO BID TAKES 2 (500MG) TABLETS Aspirin EC (Aspirin) 81 Mg Tablet.dr 81 Mg PO DAILY Allopurinol 100 Mg Tablet 100 Mg PO BID Instructions to patient/family Please see electronic discharge instructions given to patient. Diagnosis/Problems Diagnosis/Problems (1) Duodenal ulcer perforation Status: Acute (2) Femur fracture, left Status: Chronic (3) Diabetes mellitus Status: Chronic (4) Hypertension Status: Chronic (5) Gout Status: Chronic (6) Acute blood loss anemia Status: Acute (7) Iron deficiency Status: Acute (8) Loose stools Status: Chronic (9) Serum albumin decreased Status: Acute (10) Hypoglycemia Status: Resolved Resolution Date/Time: 08/25/18 @ 12:58 Clinical Quality Measures DVT/VTE Risk/Contraindication: Risk Factor Score Per Nursin RFS Level Per Nursing on Admit: 4+=Very High TOBY DELONG DO August 26, 2018 08:29
--- NOTE | 2018-08-26 09:58 | Therapy Team Discharge Summary ---
Therapy Discharge Summary Discharge Recommendations Date of Discharge Aug 24, 2018 at 13:40 Therapy D/C Recommendations: Other, See Comments (recommend PT when medically stable) Physical Therapy This patient was admitted to ARU post acute hospital stay due to a fracture of her left hip after a fall. The fracture was repaired with an ORIF and she was TTWB. 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 Upon admit to this unit, she was mod assist with transfers and walked 10 ft TTWB with min assist. She was unable to attempt stairs. Treatment has consisted of functional strength and mobility to progress her indep level. At last visit she was still mod assist with transfers and walked 12 ft with FWW TTWB with min assist. Her functional progress was limited and goals unmet at this due to medical issuesto include Acute abdominal pain with free air on CT scan taken to surgery emergently and found to have perforated duodenal ulcer. DC from PT at this time. Occupational Therapy Decreased Activ Tolerance, Impaired Self-Care Skills PT Retirement Goals Retirement Goals PT Retirement Goals Time Frame: September 07, 2018 Transfers (B,C,W/C) (FIM): 5 Roll Left to Right (QC): 4 Sit to Lying (QC): 4 Lying-Sitting on Side/Bed(QC): 4 Sit to Stand (QC): 4 Chair/Ksb-uj-Kegwc Xfer(QC): 4 Car Transfer (QC): 4 Gait (FIM): 2 Distance: 50' Walk 10 feet (QC): 4 Walk 10ft-Uneven Surface(QC): 4 Walk 50ft with 2 Turns (QC): 4 Gait Level of Assist: 5 Gait Assistive Device: FWW Stairs (FIM): 2 # of Steps: 4 1 Step (curb) (QC): 4 4 Steps (QC): 4 Stairs Level Of Assist: 4 no LTG's met OT Key Account Representative Goals Key Account Representative Goals Time Frame: September 07, 2018 Eating (FIM): 7 Eating (QC): 6 Oral Hygiene (QC): 6 Grooming(FIM): 6 Bathing(FIM): 5 Shower/Bathe Self (QC): 5 Upper Body Dressing(FIM): 6 Upper Body Dressing (QC): 6 Lower Body Dressing(FIM): 6 Lower Body Dressing (QC): 6 On/Off Footwear (QC): 6 Toileting(FIM): 6 Toileting Hygiene (QC): 6 Toilet/Commode Transfer(FIM): 6 Toilet/Commode Transfer (QC): 6 Shower Transfer(FIM): 5 Additional Goals: 1-Demonstrate ADL Tasks, 2-Verbalize Understanding, 3- ImproveStrength/[place] 1=Demonstrate adherence to instructed precautions during ADL tasks. 2=Patient will verbalize/demonstrate understanding of assistive devices/ modifications for ADL. 3=Patient will improve strength/tolerance for activity to enable patient to perform ADL's. COSMO RIOS PT August 26, 2018 09:58
--- NOTE | 2018-08-27 15:13 | Therapy Team Discharge Summary ---
Therapy Discharge Summary Discharge Recommendations Date of Discharge Aug 24, 2018 at 13:40 Therapy D/C Recommendations: Other, See Comments (recommend PT when medically stable) Occupational Therapy Pt admitted to ARU following acute hospitalization for ORIF of left hip. Pt was TTWB left LE. On admission pt required mod assist with bathing and toileting, and min assist with toilet transfer. Skilled OT intervention focused on ADL training, transfers, strengthening, and adaptive equipment training. Pt was making progress toward goals, but was limited by medical issues. Pt was transferred secondary to medical status. D/c ARU OT. Decreased Activ Tolerance, Impaired Self-Care Skills PT Prison Goals Prison Goals PT Prison Goals Time Frame: September 07, 2018 Transfers (B,C,W/C) (FIM): 5 Roll Left to Right (QC): 4 Sit to Lying (QC): 4 Lying-Sitting on Side/Bed(QC): 4 Sit to Stand (QC): 4 Chair/Nmq-tm-Tartl Xfer(QC): 4 Car Transfer (QC): 4 Gait (FIM): 2 Distance: 50' Walk 10 feet (QC): 4 Walk 10ft-Uneven Surface(QC): 4 Walk 50ft with 2 Turns (QC): 4 Gait Level of Assist: 5 Gait Assistive Device: FWW Stairs (FIM): 2 # of Steps: 4 1 Step (curb) (QC): 4 4 Steps (QC): 4 Stairs Level Of Assist: 4 OT Prison Goals Prison Goals Time Frame: September 07, 2018 Eating (FIM): 7 Eating (QC): 6 Oral Hygiene (QC): 6 Grooming(FIM): 6 Bathing(FIM): 5 Shower/Bathe Self (QC): 5 Upper Body Dressing(FIM): 6 Upper Body Dressing (QC): 6 Lower Body Dressing(FIM): 6 Lower Body Dressing (QC): 6 On/Off Footwear (QC): 6 Toileting(FIM): 6 Toileting Hygiene (QC): 6 Toilet/Commode Transfer(FIM): 6 Toilet/Commode Transfer (QC): 6 Shower Transfer(FIM): 5 Additional Goals: 1-Demonstrate ADL Tasks, 2-Verbalize Understanding, 3- ImproveStrength/[place] 1=Demonstrate adherence to instructed precautions during ADL tasks. 2=Patient will verbalize/demonstrate understanding of assistive devices/ modifications for ADL. 3=Patient will improve strength/tolerance for activity to enable patient to perform ADL's. BENJY MALONEY OT August 27, 2018 15:13
== END 2018-08-24 13:40 | disposition short-term general hospital (02) | DRG 559 ==
LOC: UNDOADMIN 14:05
PROVIDERS: ADMIT Internal Medicine; ATTEND Internal Medicine
DX: S72.142D Displaced intertrochanteric fracture of left femur, subsequent encounter for closed fracture with routine healing (principal); D62 Acute posthemorrhagic anemia; K26.5 Chronic or unspecified duodenal ulcer with perforation; E11.649 Type 2 diabetes mellitus with hypoglycemia without coma; R19.7 Diarrhea, unspecified; E78.00 Pure hypercholesterolemia, unspecified; I10 Essential (primary) hypertension; D50.9 Iron deficiency anemia, unspecified; M19.90 Unspecified osteoarthritis, unspecified site; M10.9 Gout, unspecified; Z79.84 Long term (current) use of oral hypoglycemic drugs; W19.XXXD Unspecified fall, subsequent encounter; Y92.219 Unspecified school as the place of occurrence of the external cause; Y99.0 Civilian activity done for income or pay
CPT/HCPCS: 36415; 74019; 74177; 80053; 81000; 82150; 82962; 83540; 83690; 85007; 85025; 85027; 87077; 87088; 87186

== ENCOUNTER 2018-08-24 13:03 | Inpatient (IN) | payer OTHER, MEDICARE | END 2018-08-25 23:18 | disposition designated cancer center or children's hospital (05) | LOC: SDC 13:03 → 4TH 17:40 → ICU 08-25 17:15 ==